=== PATIENT | female | born 1975 | race Two or more races ===

== ENCOUNTER 2020-11-15 10:09 | Outpatient (REF) | payer OTHER, SELFPAY ==
[2020-11-15 11:36] LABS: Basophils Percent Auto 0.7 % (0-2); Eosinophils Absolute Auto 0.1 X10*3/uL (0.0-0.4); Eosinophils Percent Auto 3.1 % (0-4); Hematocrit 39.4 % (37-47); Hemoglobin 13.3 g/dl (12.0-16.0); Lymphocytes Absolute Auto 0.4 X10*3/uL (1.2-4.9); Lymphocytes Percent Auto 15.1 % (20-40); MANUAL DIFF FLAG SCAN; Mean Corpuscular HGB Conc 33.8 g/dl (31.0-35.0); Mean Corpuscular Hemoglobin 31.4 pg (27.0-33.0); Mean Corpuscular Volume 93.1 fL (80-98); Mean Platelet Volume 10.2 fL (9.4-12.3); Monocytes Absolute Auto 0.3 X10*3/uL (0.1-1.2); Monocytes Percent Auto 10.3 % (2-11); Neutrophils Absolute Auto 2.1 X10*3/uL (2.0-8.3); Neutrophils Percent Auto 70.8 % (45-73); Platelet Count 193 X10*3/uL (160-400); Red Blood Count 4.23 X10*6/uL (4.20-5.50); Red Cell Distribution Width 12.5 % (11.0-16.0); SCAN SMEAR FLAG 1; White Blood Count 2.9 X10*3/uL (4.8-10.8)
[2020-11-15 11:55] LABS: Alanine Aminotransferase 16 U/L (0-31); Albumin Level 4.2 g/dL (3.5-5.0); Alkaline Phosphatase 71 U/L (39-117); Anion Gap 10 (12-20); Aspartate Amino Transferase 16 U/L (5-31); Bilirubin Total 1.9 mg/dL (0.0-1.0); Blood Urea Nitrogen 12 mg/dL (9-16); Calcium 9.6 mg/dL (8.4-10.2); Carbon Dioxide 27 mmol/L (22-29); Chloride 104 mmol/L (96-108); Estimated Glomerular Filt Rate > 60; Glucose Fasting 94 mg/dL (60-99); Potassium 4.2 mmol/L (3.3-5.1); Sodium 137 mmol/L (135-145); Total Protein 6.6 g/dL (6.5-8.0)
[2020-11-15 11:59] LABS: Thyroid Stimulating Hormone 1.14 uIU/mL (0.32-4.0)
[2020-11-15 12:14] LABS: Folate 9.4 ng/mL (> or = 4.0); Vitamin B12 443 pg/mL (200-900)
[2020-11-15 13:36] LABS: SLIDE REVIEW VERIFIED
[2020-11-22 12:07] LABS: Vitamin D 25-OH, D2 <4 ng/mL; Vitamin D 25-OH, D3 22 ng/mL; Vitamin D 25-OH, Total 22 ng/mL (30-100)
== END 2020-11-15 10:10 | disposition home or self-care (01) ==
LOC: HO.LAB 10:09
PROVIDERS: PCP Internal Medicine; Visit Provider Internal Medicine
DX: R53.83 Other fatigue (principal); E55.9 Vitamin D deficiency, unspecified; D64.9 Anemia, unspecified
CPT/HCPCS: 36415; 80053; 82306; 82607; 82746; 84443; 85025

== ENCOUNTER 2020-12-01 09:22 | Outpatient (REF) | payer OTHER, SELFPAY | END 2020-12-01 09:23 | disposition home or self-care (01) | LOC: HO.LAB 09:22 | PROVIDERS: PCP Internal Medicine; Visit Provider Internal Medicine | DX: Z20.822 Contact with and (suspected) exposure to COVID-19 (principal) | CPT/HCPCS: C9803; U0003; U0005 ==

== ENCOUNTER 2020-12-09 13:11 | Outpatient (REF) | payer OTHER, SELFPAY ==
--- NOTE | ~2020-12-09 | MM_ITS ---
EXAMINATION: MM DIAGNOSTIC DIGITAL BREAST TOMOSYNTHESIS, BILATERAL US DIAGNOSTIC ULTRASOUND BREAST, RIGHT CLINICAL INFORMATION: 44-year-old with new palpable fullness posterior 9:00 right breast noted by patient. Tenderness also noted at site of palpable concern. No family history breast cancer. Due for yearly. The lifetime risk of breast cancer based on the Tyrer-Cuzick Model is 9%. COMPARISON: Mammography: 06/05/2018, 05/17/2017, 07/08/2015; targeted right breast ultrasound 05/17/2017, 07/08/2015. TECHNIQUE: Digital breast tomosynthesis is performed in both the craniocaudal and mediolateral oblique views along with computer-aided detection (CAD). Synthesized 2D images are generated from the tomosynthesis. Ultrasound right breast is targeted to the area of concern posterior outer right breast. Grayscale imaging and color Doppler are performed without and with harmonics. FINDINGS: The breasts are heterogeneously dense, which may obscure small masses (ACR BI-RADS breast composition Category c). There is inhomogeneous parenchymal pattern similar to multiple prior exams. The left breast shows no interval mass or architectural abnormality. Neither breast shows abnormal calcifications. The axilla and skin contours are unremarkable. The right breast has new oval circumscribed mass posterior outer quadrant at site of palpable concern measuring approximately 3 cm in size. Ultrasound right breast targeted to the area of clinical concern demonstrates a simple cyst 9:00 position 8 cm from nipple measuring 3.3 x 2.3 x 1.7 cm. There is no solid mass or architectural abnormality. No skin thickening or edema tracking in soft tissue planes. Results are discussed with the patient at time of visit. Patient questions including management options were discussed. MM/MM tomosynthesis diagnostic BI IMPRESSION: 1. No mammographic evidence of malignancy. 2. New simple cyst right breast at site of clinical concern posterior 9:00 position measuring 3.3. x 2.3. x 1.7 cm. No hyperemia. ASSESSMENT: BI-RADS 2: Benign RECOMMENDATION: 1. Patient may be managed based on the clinical impression. If the new simple cyst posterior outer right breast is felt to be responsible for significant breast pain, it would be amenable to ultrasound-guided aspiration. 2. Otherwise, routine annual screening mammography. This patient's information was entered into a reminder system with a target due date for their next mammogram.
== END 2020-12-09 13:12 | disposition home or self-care (01) ==
LOC: HO.MAMMO 13:11
PROVIDERS: PCP Internal Medicine; Visit Provider Internal Medicine
DX: N63.15 Unspecified lump in the right breast, overlapping quadrants (principal)
CPT/HCPCS: 76642; 77062; 77066

== ENCOUNTER → 2021-01-24 15:10 | Outpatient (BNVA) | payer OTHER, SELFPAY | PROVIDERS: PCP Internal Medicine; Visit Provider Surgery ==

== ENCOUNTER 2021-05-02 11:08 | Outpatient (REF) | payer OTHER, SELFPAY | END 2021-05-02 11:09 | disposition home or self-care (01) | LOC: HO.LAB 11:08 | PROVIDERS: Visit Provider Nurse Practitioner Family | DX: R35.0 Frequency of micturition (principal) | CPT/HCPCS: 87086 ==

== ENCOUNTER 2021-05-02 11:58 | Outpatient (REF) | payer OTHER, SELFPAY | END 2021-05-02 11:59 | disposition home or self-care (01) | LOC: HO.10HDLNP 11:58 | PROVIDERS: Visit Provider Nurse Practitioner Family | DX: R35.0 Frequency of micturition (principal) | CPT/HCPCS: 87086 ==

== ENCOUNTER 2021-09-11 16:46 | Emergency (ER) | payer OTHER, SELFPAY ==
--- NOTE | ~2021-09-11 | US_ITS ---
EXAMINATION: US PELVIS CLINICAL INFORMATION: Pain. COMPARISON: CT abdomen/pelvis done earlier today at 8:49 PM. TECHNIQUE: Ultrasound of the pelvis is performed using both transabdominal and transvaginal transducers along with Doppler. Transvaginal imaging is performed due to inadequate visualization transabdominally. FINDINGS: The uterus is retroverted and retroflexed measuring 8.1 x 4.8 x 5.5 cm. No fibroids are identified. The endometrium measures up to 1.3 cm in maximum thickness without focal abnormalities. The ovaries are normal in morphology with preserved flow on color and spectral Doppler. The right ovary measures 2.1 x 1.3 x 1.3 cm (20 mL) and the left ovary measures 3.5 x 2.0 x 1.9 cm (volume of 7 mL). In the left ovary, there is a 1.7 cm thick-walled cyst and a 1.7 cm thin wall cyst with some internal echogenic avascular content. No free fluid. US/US pelvic and transvaginal IMPRESSION: Asymmetric enlargement of the left ovary secondary to the presence of two ovarian cysts, one with thickened de la vega that likely represents a corpus luteal cyst and another one with thinner de la vega but internal debris, possibly representing a hemorrhagic cyst or dominant follicle. At the moment of this examination, flow is preserved to this ovary. A follow-up ultrasound in 6-12 weeks could be obtained to ensure adequate resolution of these cysts.
--- NOTE | ~2021-09-11 | CT_ITS ---
EXAMINATION: CT ABDOMEN AND PELVIS WITHOUT CONTRAST CLINICAL INFORMATION: Back pain/groin pain. kidney stones? arthritis? . COMPARISON: 09/28/2019. TECHNIQUE: Multidetector volumetric imaging was performed from the superior aspect of the liver through the pubic symphysis without contrast per renal stone protocol. Sagittal and coronal reformatted images were obtained on the technologist workstation. This CT examination was performed using dose optimization techniques as appropriate, variously including the following: *Automated exposure control *Adjustment of mA and/or kV according to patient size (this includes techniques or standardized protocols for targeted exams where dose is matched to indication/reason for exam; i.e. extremities or head) *Use of iterative reconstruction technique DLP: 629 mGy-cm. FINDINGS: LUNG BASES: The visualized lung bases are unremarkable. LIVER, GALLBLADDER, BILIARY TREE: The non-contrast liver is normal in size, shape, and attenuation. There are a few densely calcified hepatic granulomas incidentally noted but no suspicious focal hepatic lesion or biliary ductal dilatation is present. The gallbladder is unremarkable with no evidence of radiopaque gallstones, gallbladder wall thickening, or obvious pericholecystic inflammatory changes. PANCREAS: Unremarkable. SPLEEN: Unremarkable. ADRENAL GLANDS: Unremarkable. KIDNEYS AND URETERS: The kidneys are normal in size, shape, and attenuation. No hydronephrosis, hydroureter, or calculi seen. No perinephric stranding. BLADDER: Unremarkable. GASTROINTESTINAL TRACT: The small and large bowel are unremarkable. The appendix is nonvisualized and may be surgically absent. No focal inflammatory changes seen in the right lower quadrant.. ABDOMINAL WALL: No significant hernia is appreciated. LYMPHOVASCULAR STRUCTURES: No lymphadenopathy. The aorta is unremarkable.. PELVIC VISCERA: Retroverted uterus with physiologic changes in the adnexa. OSSEUS STRUCTURES: No acute bony abnormalities. CT/CT abdomen pelvis wo con IMPRESSION: No acute intra-abdominal process seen..
--- NOTE | ~2021-09-11 | US_ITS ---
EXAMINATION: US PELVIS CLINICAL INFORMATION: Pain. COMPARISON: CT abdomen/pelvis done earlier today at 8:49 PM. TECHNIQUE: Ultrasound of the pelvis is performed using both transabdominal and transvaginal transducers along with Doppler. Transvaginal imaging is performed due to inadequate visualization transabdominally. FINDINGS: The uterus is retroverted and retroflexed measuring 8.1 x 4.8 x 5.5 cm. No fibroids are identified. The endometrium measures up to 1.3 cm in maximum thickness without focal abnormalities. The ovaries are normal in morphology with preserved flow on color and spectral Doppler. The right ovary measures 2.1 x 1.3 x 1.3 cm (20 mL) and the left ovary measures 3.5 x 2.0 x 1.9 cm (volume of 7 mL). In the left ovary, there is a 1.7 cm thick-walled cyst and a 1.7 cm thin wall cyst with some internal echogenic avascular content. No free fluid. US/US pelvic ovarian doppler IMPRESSION: Asymmetric enlargement of the left ovary secondary to the presence of two ovarian cysts, one with thickened de la vega that likely represents a corpus luteal cyst and another one with thinner de la vega but internal debris, possibly representing a hemorrhagic cyst or dominant follicle. At the moment of this examination, flow is preserved to this ovary. A follow-up ultrasound in 6-12 weeks could be obtained to ensure adequate resolution of these cysts.
[2021-09-11 16:55] VITALS: BP 119/87; PULSE 89; RESP 18; TEMP 36.8; O2SAT 97; BMI 26.6
[2021-09-11 17:29] LABS: Appearance Urine CLEAR; Color Urine YELLOW; Glucose Urine UA NEG (NEG); Leukocyte Esterase Urine NEG (NEG); Nitrite Urine NEG (NEG); Specific Gravity - Urine 1.015 (1.005-1.025); UACC Culture Trigger NO; Urine Blood TRACE (NEG); Urine Ketones NEG (NEG); Urine Protein NEG (NEG-TRACE)
[2021-09-11 17:44] LABS: RBC Urine 0-2 /HPF (0); WBC Urine 0-2 /HPF (0-4)
[2021-09-11 17:45] LABS: Squamous Epithelial Cell Urine TRACE /LPF
[2021-09-11 19:28] LABS: MANUAL DIFF FLAG NO
[2021-09-11 19:31] LABS: Basophils Percent Auto 0.7 % (0-2); Eosinophils Absolute Auto 0.2 X10*3/uL (0.0-0.4); Eosinophils Percent Auto 3.5 % (0-4); Hematocrit 37.8 % (37.0-47.0); Imm Gran Abs Auto 0.01 X10*3/uL (0.00-0.03); Imm Gran Pct Auto 0.2 % (0.0-0.4); Lymphocytes Absolute Auto 2.2 X10*3/uL (1.2-4.9); Lymphocytes Percent Auto 51.5 % (20-40); Mean Corpuscular HGB Conc 34.4 g/dl (31.0-35.0); Mean Corpuscular Hemoglobin 31.4 pg (27.0-33.0); Mean Corpuscular Volume 91.3 fL (80.0-98.0); Mean Platelet Volume 9.5 fL (9.4-12.3); Monocytes Absolute Auto 0.3 X10*3/uL (0.1-1.2); Monocytes Percent Auto 6.4 % (2-11); Neutrophils Absolute Auto 1.6 x10*3/uL (2.0-8.3); Neutrophils Percent Auto 37.7 % (45-73); Platelet Count 241 X10*3/uL (160-400); Red Blood Count 4.14 X10*6/uL (4.20-5.50); Red Cell Distribution Width 12.5 % (11.0-16.0); White Blood Count 4.2 X10*3/uL (4.8-10.8)
[2021-09-11 19:44] LABS: Anion Gap 9 (12-20); Blood Urea Nitrogen 11 mg/dL (9-16); Calcium 9.8 mg/dL (8.4-10.2); Carbon Dioxide 26 mmol/L (22-29); Chloride 106 mmol/L (96-108); Creatinine Clr Calc Pharmacy 102.3; Estimated Glomerular Filt Rate > 60; Glucose Random 95 mg/dL (60-115); Potassium 4.2 mmol/L (3.3-5.1); Sodium 137 mmol/L (135-145)
[2021-09-11 20:02] LABS: UPreg QC Valid YES; Urine Pregnancy NEGATIVE (NEGATIVE)
--- NOTE | 2021-09-11 20:25 | ED.GENADULT ---
HPI - General Adult General Chief complaint: Back Pain/Injury Stated complaint: severe back pain Time Seen by Provider: 09/11/21 19:48 Source: patient Mode of arrival: ambulatory Limitations: no limitations History of Present Illness HPI narrative: 45-year-old female with history of kidney stones presents to the ED left back pain radiating down left groin area. Patient denies any falling any recent trauma. Patient denies nausea or emesis. Patient denies any vaginal bleeding, unusual vaginal discharge, or vaginal lesions. Patient denies any urinary/bowel incontience Related Data Previous Rx's Medication Instructions Recorded loratadine 10 mg tablet (Allergy 10 mg PO DAILY 90 Days #90 tab 11/01/20 Relief (loratadine)) sumatriptan succinate 25 mg tablet 25 mg PO Q2-4H PRN 30 Days #9 tab 11/01/20 fluticasone propionate 50 1 spray INTRANASAL DAILY 30 Days 04/16/21 mcg/actuation nasal #16 g spray,suspension fluconazole 150 mg tablet 150 mg PO Q3D #2 tab 05/02/21 (Diflucan) dexlansoprazole 30 mg 30 mg PO BID 30 Days #60 cap 05/25/21 capsule,biphase delayed release (Dexilant) simethicone 180 mg capsule (Gas 180 mg PO BID PRN 90 Days #180 cap 06/08/21 Relief (simethicone)) naproxen 500 mg tablet 500 mg PO BID PRN #20 tab 09/11/21 oxycodone-acetaminophen 5 mg-325 1 tab PO TID PRN 3 Days #9 tab 09/11/21 mg tablet (Percocet) Allergies Allergy/AdvReac Type Severity Reaction Status Date / Time latex [LATEX] Allergy Unknown RASH Verified 09/11/21 16:55 amoxicillin [AMOXICILLIN] AdvReac Unknown VOMITTING Verified 09/11/21 16:55 AND NAUSEA, abdominal pain, N/V and diarrhea Review of Systems Review of Systems: back pain/groin pain. Yes all other systems are reviewed and are negative [facility] Past Medical History Medical History (Updated 09/11/21 @ 23:00 by AMMY Mclaughlin) Allergic rhinitis Breast mass Breast mass Chronic leukopenia Fatigue Lumbar pain Migraines Surgical History H/O LEEP History of appendectomy History of shoulder surgery History of tubal ligation Family History Family History Father Diabetes Hypertension Mother Osteoporosis Glaucoma Maternal Uncle Stomach cancer Colon cancer H/O: lung cancer Maternal Grandmother Gallbladder cancer Maternal Aunt Liver cancer Paternal Grandmother Alzheimers disease Maternal Grandfather Glaucoma Heart attack Social History Social History Housing: House Alcohol intake: current Alcohol intake frequency: holidays/special occasions only Alcohol type: wine Patient Tobacco Use Status: Former Tobacco user e-Cigarette/Vaping Use: Never Used Advance Directives: No Advance Directives Information Provided: Yes Patient : No service: No Physical Exam Vital Signs: Vital Signs: Last Vital Signs Temp 98.2 F 09/11/21 16:55 Pulse 62 09/11/21 21:59 Resp 16 09/11/21 21:59 BP 119/58 L 09/11/21 21:59 Pulse Ox 100 09/11/21 21:59 BMI result Body Mass Index 26.6 Const: General: cooperative, healthy appearing, comfortable, no acute distress, well developed, alert, awake and Physically active Orientation/consciousness: patient oriented x3 HENMT: Head: Yes normal to inspection, Yes No palpable skull fracture present, Yes normocephalic, Yes atraumatic and No abrasion Eyes: General: appearance normal, both eyes and all related structures Neck: Neck: Yes normal visual inspection, Yes full ROM, Yes no lymphadenopathy, Yes no meningeal signs, Yes trachea midline, Yes supple, No anterior neck swelling and No tender Chest: Chest palpation & inspection: normal inspection of the chest and normal palpation of entire chest wall Resp: Effort & Inspection: normal respiratory effort and able to speak in complete sentences Auscultation: clear to auscultation bilaterally Cardio: Jugular venous distension: no JVD Heart sounds: S1 normal heart sound present and S2 normal heart sound present GI: Inspection: Yes normal to inspection and No abdominal wall ecchymosis Palpation (GI): Soft to palpation, not firm, Tenderness to palpation present (GI) suprapubicly (left), no guarding and not rigid : General: No CVA tenderness and Yes no CVA tenderness Back/Spine/Pelvis: Back: no CVA tenderness, No CVA tenderness and No back tenderness Skin: General skin exam: no rashes or lesions noted and elasticity normal Neuro: General: patient oriented x3, gait normal, no meningeal signs and CN's II-XI intact bilaterally Cranial nerves: Yes CN's II-XII intact bilaterally Extrem: General: Yes normal to inspection and Yes full ROM Psych: Appearance: grossly normal, well kempt and not disheveled Course Course Course Narrative: Labs urine negative. Send patient for dry CT look for kidney stones of lumbar radiculopathy. Will US check for ovarian cysts. Reevaluation(s) Reevaluation #1: PATIENT'S CT SCAN CAME BACK NORMAL. PATIENT LABS NORMAL. KIDNEY FUNCTION NORMAL. URINE NEGATIVE FOR UTI. NEGATIVE FOR . PELVIC ULTRASOUND SHOWS 2 CYSTS ON OVARIES BUT NEGATIVE FOR OVARIAN TORSION. POSITIVE FOR CORPUS LUTEAL CYSTS AND HEMORRHAGIC CYST which is contributing to left pelvic pain. patient informed to follow up with OBGYN. Time: 22:57 Medical Decision Making MDM Narrative Medical decision making narrative: CORPORIS OVARIAN CYST. HEMORRHAGIC CYST Lab Data Result diagrams: 09/11/21 19:23 09/11/21 19:23 Labs: Lab Results 09/11/21 09/11/21 09/11/21 Range/Units 17:13 17:13 19:23 WBC 4.2 L (4.8-10.8) X10*3/uL RBC 4.14 L (4.20-5.50) X10*6/uL Hgb 13.0 (12.0-16.0) g/dl Hct 37.8 (37.0-47.0) % MCV 91.3 (80.0-98.0) fL MCH 31.4 (27.0-33.0) pg MCHC 34.4 (31.0-35.0) g/dl RDW 12.5 (11.0-16.0) % Plt Count 241 (160-400) X10*3/uL MPV 9.5 (9.4-12.3) fL Immature Gran % (Auto) 0.2 (0.0-0.4) % Neut % (Auto) 37.7 L (45-73) % Lymph % (Auto) 51.5 H (20-40) % Roosevelt % (Auto) 6.4 (2-11) % Eos % (Auto) 3.5 (0-4) % Baso % (Auto) 0.7 (0-2) % Lymph # (Auto) 2.2 (1.2-4.9) X10*3/uL Roosevelt # (Auto) 0.3 (0.1-1.2) X10*3/uL Eos # (Auto) 0.2 (0.0-0.4) X10*3/uL Baso # (Auto) 0.0 (0.0-0.2) X10*3/uL Abs Immat Gran (auto) 0.01 (0.00-0.03) X10*3/uL Absolute Neuts (auto) 1.6 L (2.0-8.3) x10*3/uL Absolute Nucleated RBC 0.000 (0.0-0.012) X10*3/uL Nucleated RBC % (auto) 0.0 (0.0-0.2) /100WBC Sodium (135-145) mmol/L Potassium (3.3-5.1) mmol/L Chloride (96-108) mmol/L Carbon Dioxide (22-29) mmol/L Anion Gap (12-20) BUN (9-16) mg/dL Creatinine (0.5-1.4) mg/dL Estim Creat Clear Calc Estimated GFR Random Glucose (60-115) mg/dL Calcium (8.4-10.2) mg/dL Urine Color YELLOW Urine Appearance CLEAR Urine pH 6.0 (5.0-8.0) Ur Specific Stevenson 1.015 (1.005-1.025) Urine Protein NEG (NEG-TRACE) MG/DL Urine Glucose (UA) NEG (NEG) MG/DL Urine Ketones NEG (NEG) MG/DL Urine Blood TRACE (NEG) Urine Nitrite NEG (NEG) Ur Leukocyte Esterase NEG (NEG) Urine RBC 0-2 (0) /HPF Urine WBC 0-2 (0-4) /HPF Ur Squamous Epith Cells TRACE /LPF Urine Bacteria NONE /LPF Urine Test NEGATIVE (NEGATIVE) 09/11/21 Range/Units 19:23 WBC (4.8-10.8) X10*3/uL RBC (4.20-5.50) X10*6/uL Hgb (12.0-16.0) g/dl Hct (37.0-47.0) % MCV (80.0-98.0) fL MCH (27.0-33.0) pg MCHC (31.0-35.0) g/dl RDW (11.0-16.0) % Plt Count (160-400) X10*3/uL MPV (9.4-12.3) fL Immature Gran % (Auto) (0.0-0.4) % Neut % (Auto) (45-73) % Lymph % (Auto) (20-40) % Roosevelt % (Auto) (2-11) % Eos % (Auto) (0-4) % Baso % (Auto) (0-2) % Lymph # (Auto) (1.2-4.9) X10*3/uL Roosevelt # (Auto) (0.1-1.2) X10*3/uL Eos # (Auto) (0.0-0.4) X10*3/uL Baso # (Auto) (0.0-0.2) X10*3/uL Abs Immat Gran (auto) (0.00-0.03) X10*3/uL Absolute Neuts (auto) (2.0-8.3) x10*3/uL Absolute Nucleated RBC (0.0-0.012) X10*3/uL Nucleated RBC % (auto) (0.0-0.2) /100WBC Sodium 137 (135-145) mmol/L Potassium 4.2 (3.3-5.1) mmol/L Chloride 106 (96-108) mmol/L Carbon Dioxide 26 (22-29) mmol/L Anion Gap 9 L (12-20) BUN 11 (9-16) mg/dL Creatinine 0.81 (0.5-1.4) mg/dL Estim Creat Clear Calc 102.3 Estimated GFR > 60 Random Glucose 95 (60-115) mg/dL Calcium 9.8 (8.4-10.2) mg/dL Urine Color Urine Appearance Urine pH (5.0-8.0) Ur Specific Stevenson (1.005-1.025) Urine Protein (NEG-TRACE) MG/DL Urine Glucose (UA) (NEG) MG/DL Urine Ketones (NEG) MG/DL Urine Blood (NEG) Urine Nitrite (NEG) Ur Leukocyte Esterase (NEG) Urine RBC (0) /HPF Urine WBC (0-4) /HPF Ur Squamous Epith Cells /LPF Urine Bacteria /LPF Urine Test (NEGATIVE) Discharge Plan Discharge Clinical Impression: Hemorrhagic cyst of ovary, Corpus luteum cyst of left ovary Patient Disposition: Home, Self-Care Instructions: Ovarian Cyst (ED) Additional Instructions: Gould ecograf?a muestra que tiene un quiste del cuerpo l?haily y un quiste hemorr?gico en los quistes del ovario amos. Debe hacer un seguimiento con un m?dico obstetra y ginec?logo. Se le jim? de merle con analg?sicos. Regrese al servicio de urgencias de inmediato si empeora el dolor p?lvico, el sangrado vaginal, el dolor de espalda, las n?useas, los v?mitos, el flujo vaginal o cualquier otro s?ntoma preocupante. Prescriptions: New naproxen 500 mg tablet 500 mg PO BID PRN (Reason: pain) Qty: 20 0RF oxycodone-acetaminophen [Percocet] 5-325 mg tablet 1 tab PO TID PRN (Reason: pain) 3 Days Qty: 9 0RF Rx Instructions: side effect is drowsiness. Do not take at work or while driving. No Action fluticasone propionate 50 mcg/actuation spray,suspension 1 spray intranasal DAILY 30 Days Qty: 16 3RF Rx Instructions: administer into each nostril Dexilant 30 mg capsule,biphase delayed releas 30 mg PO BID 30 Days Qty: 60 4RF Rx Instructions: Take one capsule orally twice a day simethicone [Gas Relief (simethicone)] 180 mg capsule 180 mg PO BID PRN (Reason: abdominal distention) 90 Days Qty: 180 1RF loratadine [Allergy Relief (loratadine)] 10 mg tablet 10 mg PO DAILY 90 Days Qty: 90 3RF sumatriptan succinate 25 mg tablet 25 mg PO Q2-4H PRN (Reason: migraine headache) 30 Days Qty: 9 6RF Rx Instructions: do not exceed 8 doses per 24 hrs fluconazole [Diflucan] 150 mg tablet 150 mg PO Q3D Qty: 2 0RF Referrals: Stewart Crenshaw MD [Physician] - 2 days (Cough worse luteal and hemorrhagic cyst on left ovary) Stand Alone Forms: Work/School Release Print Language: Nigerien
[2021-09-11] MEDS: Ketorolac Tromethamine 60 MG/2 ML VIAL IM (20:31)
[2021-09-11] MEDS: Cyclobenzaprine HCl 10 MG TABLET PO (20:32)
[2021-09-11 21:59] VITALS: BP 119/58; PULSE 62; RESP 16; O2SAT 100
== END 2021-09-11 23:30 | disposition home or self-care (01) ==
PROVIDERS: Physician Assistant; Emergency Provider Internal Medicine; PCP Internal Medicine
DX: N83.02 Follicular cyst of left ovary (principal); N83.12 Corpus luteum cyst of left ovary
CPT/HCPCS: 36415; 74176; 76830; 76856; 80048; 81001; 81025; 85025; 93975; 96372; 99284; J1885

== ENCOUNTER → 2021-10-16 13:50 | Outpatient (BNVA) | payer SELFPAY | PROVIDERS: PCP Internal Medicine; Visit Provider Internal Medicine | DX: Z02.79 Encounter for issue of other medical certificate (principal) ==

== ENCOUNTER 2022-01-05 15:13 | Outpatient (REF) | payer OTHER, SELFPAY ==
--- NOTE | ~2022-01-05 | XR_ITS ---
EXAMINATION: XR FOOT, LEFT CLINICAL INFORMATION: Pain COMPARISON: None TECHNIQUE: AP, lateral, and oblique views of the left foot. FINDINGS: The bones and soft tissues are normal. No fracture. Alignment is anatomic. Joint spaces are maintained. XR/XR foot LT 2V IMPRESSION: Unremarkable left foot.
== END 2022-01-05 15:14 | disposition home or self-care (01) ==
LOC: HO.XRAY 15:13
PROVIDERS: PCP Internal Medicine; Visit Provider Internal Medicine
DX: M79.672 Pain in left foot (principal)
CPT/HCPCS: 73620

== ENCOUNTER 2022-01-17 13:56 | Outpatient (REF) | payer OTHER, SELFPAY ==
--- NOTE | ~2022-01-17 | MM_ITS ---
EXAMINATION: MM SCREENING DIGITAL BREAST TOMOSYNTHESIS, BILATERAL CLINICAL INFORMATION: Screening. Asymptomatic. The lifetime risk of breast cancer based on the Tyrer-Cuzick Model is 9%. COMPARISON: Mammography: 12/09/2020, 06/05/2018, 05/17/2017, ultrasound right 12/09/2020. TECHNIQUE: Digital breast tomosynthesis is performed in both the craniocaudal and mediolateral oblique views along with computer-aided detection (CAD). Synthesized 2D images are generated from the tomosynthesis. FINDINGS: The breasts are heterogeneously dense, which may obscure small masses (ACR BI-RADS breast composition Category c). There are no significant masses, abnormal calcifications, or other abnormalities. No developing density. The dominant simple cyst posterior 9:00 right breast is moderately decreased in size. The axilla and skin contours are unremarkable. MM/MM tomosynthesis screening BI IMPRESSION: -No mammographic evidence of malignancy. -Simple cyst posterior 9:00 right breast moderately decreased in size since prior exam. ASSESSMENT: BI-RADS 2: Benign RECOMMENDATION: Routine annual mammography screening. This patient's information was entered into a reminder system with a target due date for their next mammogram.
== END 2022-01-17 13:57 | disposition home or self-care (01) ==
LOC: HO.MAMMO 13:56
PROVIDERS: Visit Provider Internal Medicine
DX: Z12.31 Encounter for screening mammogram for malignant neoplasm of breast (principal)
CPT/HCPCS: 77063; 77067

== ENCOUNTER 2022-03-07 07:59 | Emergency (ER) | payer OTHER, SELFPAY ==
--- NOTE | ~2022-03-07 | US_ITS ---
EXAMINATION: US ABDOMEN LIMITED CLINICAL INFORMATION: Pain of right upper quadrant. COMPARISON: CT imaging of abdomen from 08/03/2016 and 09/11/2021 TECHNIQUE: Real-time imaging of the right upper quadrant abdominal viscera. FINDINGS: PANCREAS: Normal. LIVER: Liver has normal size and contour. There are two old foci of calcification in the liver, compatible with granulomatous. No intrahepatic bile duct dilatation. No evidence of liver mass, steatosis or cirrhosis. GALLBLADDER: Normal. The gallbladder is physiologically distended without evidence of stones, sludge, polyps, wall thickening or pericholecystic fluid. COMMON BILE DUCT: Normal in caliber measuring 0.5 cm in maximum diameter. RIGHT KIDNEY: Normal. No hydronephrosis. No renal calculi or focal parenchymal lesions. The kidney measures 10.8 cm in maximum dimension. FREE FLUID: None. US/US abdomen limited IMPRESSION: No acute findings in the right upper quadrant of the abdomen. No evidence of cholelithiasis, cholecystitis or biliary tract obstruction.
[2022-03-07 08:43] VITALS: BMI 23.3
[2022-03-07 08:45] VITALS: BP 118/67; PULSE 67; RESP 16; TEMP 36.7; O2SAT 99
[2022-03-07] MEDS: Ondansetron ODT 4 MG TAB.RAPDIS TRANSLINGU (09:24)
[2022-03-07] MEDS: oxyCODONE HCl Immed Release 5 MG TABLET PO ×2 (09:24→15:04)
--- NOTE | 2022-03-07 09:31 | ED.ABDPAIN ---
HPI - Abdominal Pain General Chief Complaint: Abdominal Pain Stated Complaint: abd pain going into R side Time Seen by Provider: 03/07/22 09:07 Source: patient Mode of arrival: ambulatory Limitations: no limitations History of Present Illness HPI narrative: 46-year-old female with a history of GERD, irritable bowel syndrome, H pylori, appendicitis status post appendectomy and [place] who presents to the ER for evaluation of postprandial right upper quadrant pain on and off for the last few weeks. She was seen at an urgent care last week, had an ultrasound done that did not show any significant findings. She modified her diet, cut out a lot of fatty and greasy foods with improvement in her pain. She reports today she woke up with worsening pain and now that pain radiates from her right upper quadrant to her back. This is new for her. She is nauseous but not vomiting. She has no fevers or chills. She denies any alcohol use. No history of pancreatitis. MD elicited complaint: abdominal pain Pertinent past history: none Onset (ago): week(s) Pain Consistency: intermittent Location: RUQ Severity: moderate Quality: stabbing Radiation: back Migration to: no migration Exacerbating factors: eating Relieving factors: other (diet modification) Context: history of similar episodes Associated symptoms: nausea Related Data Previous Rx's Medication Instructions Recorded loratadine 10 mg tablet (Allergy 10 mg PO DAILY 90 days #90 tabs 12/14/21 Relief (loratadine)) sumatriptan succinate 25 mg tablet 25 mg PO Q2-4H PRN migraine 12/14/21 headache 30 days #9 tabs dexlansoprazole 30 mg 30 mg PO BID 30 days #60 caps 01/04/22 capsule,biphase delayed release (Dexilant) fluconazole 150 mg tablet 150 mg PO Q3D 2 doses #2 tabs 01/04/22 fluticasone propionate 50 1 spray intranasal DAILY 30 days 01/04/22 mcg/actuation nasal #16 grams spray,suspension naproxen 500 mg tablet 500 mg PO BID PRN pain #20 tabs 01/04/22 ondansetron 4 mg disintegrating 4 mg PO Q8H PRN nausea and 03/07/22 tablet vomiting #7 tabs oxycodone 5 mg tablet 5 mg PO Q8H PRN severe pain (scale 03/07/22 score 7-10) #6 tabs Allergies Allergy/AdvReac Type Severity Reaction Status Date / Time latex [LATEX] Allergy Unknown RASH Verified 01/04/22 17:28 amoxicillin [AMOXICILLIN] AdvReac Unknown VOMITTING Verified 01/04/22 17:28 AND NAUSEA, abdominal pain, N/V and diarrhea Review of Systems Review of Systems Constitutional: No Fever, No Chills ENT/Mouth: No sore throat, No Rhinorrhea, No Swallowing Difficulty Cardiovascular: No Chest Pain, No SOB, No Orthopnea, No Edema Respiratory: No Cough, No Sputum, No Wheezing, No dyspnea Gastrointestinal: + Nausea, No Vomiting, No Diarrhea, + abdominal Pain, No Hematochezia, No Melena Genitourinary: No Dysuria, No Urinary Frequency, No Hematuria Musculoskeletal: No joint pain, No Myalgias Skin: No Skin Lesions, No rash Neuro: No Weakness, No Numbness, No Dizziness, No Headache Psych: No Anxiety/Panic, No Depression Heme/Lymph: No Bruising, No Lymphadenopathy Endocrine: No Polyuria, No Polydipsia PMFSH Past Medical History Medical History (Updated 03/07/22 @ 13:05 by AMMY Bernabe) Allergic rhinitis Breast mass Breast mass Chronic leukopenia Fatigue Left foot pain Lumbar pain Migraines Surgical History H/O LEEP History of appendectomy History of shoulder surgery History of tubal ligation Family History Family History (Updated 01/04/22 @ 17:12 by NIKOLE Ponce) Father Diabetes Hypertension Mother Osteoporosis Glaucoma Maternal Uncle Stomach cancer Colon cancer H/O: lung cancer Maternal Grandmother Gallbladder cancer Maternal Aunt Liver cancer Paternal Grandmother Alzheimers disease Maternal Grandfather Glaucoma Heart attack Social History Social History Housing: House Alcohol intake: current Alcohol intake frequency: holidays/special occasions only Alcohol type: wine Patient Tobacco Use Status: Former Tobacco user e-Cigarette/Vaping Use: Never Used Second Hand Smoke Exposure: No service: No Current occupational status: employed Current occupational exposures/hazards: No Cognitive needs: No Hearing needs: No Vision needs: No Physical Exam ED Vital Signs: Vital Signs - 24 hr 03/07/22 08:45 Temperature 98.0 F Pulse Rate 67 Respiratory Rate 16 Blood Pressure 118/67 Pulse Oximetry 99 Oxygen Delivery Method Room Air BMI result Body Mass Index 23.3 Appearance: Alert. Oriented X3. No acute distress. Eyes: Pupils equal, round and reactive to light. ENT: Pharynx normal. Neck: Normal inspection. Neck supple. CVS: Normal heart rate and rhythm. Pulses normal. Respiratory: No respiratory distress. Breath sounds normal. Abdomen: Soft +RUQ tenderness to deep palpation, no rebound or guarding. normal +BS x4 Skin: Skin warm and dry. Normal skin color. Normal skin turgor. No rashes. Extremities: No lower extremity edema. Neuro: Oriented X 3. No motor deficit. No sensory deficit. Course Course Course Narrative: 46 yo female presenting to the ER with intermittent post-prandial RUQ pain that has been going on for the last few weeks. Nausea but no vomiting. No fever or chills. +tenderness on exam, will check labs and US. Reevaluation(s) Reevaluation #1: LFTs show a total bilirubin of 1.6 and D bili of 0.6. Her baseline bilirubin is around 1.5. Alk-phos is normal, doubt any biliary obstruction. Her ultrasound is pending. Her pain is better after oxycodone and Zofran. Reevaluation #2: Patient ate papaya and drink some water with recurrence in her pain. Additional oxycodone ordered with good affect. No vomiting. Her ultrasound showed normal gallbladder, no stones, no wall thickening. Patient's pain is improved and at this time will plan to discharge for elective outpatient cholecystectomy evaluation by Dr. Uriarte in the office. Patient agrees. If she has new or worsening symptoms she will return back to the emergency department. MDM - Abdominal Pain Lab Data Result diagrams: 03/07/22 09:54 03/07/22 09:54 Labs: Lab Results 03/07/22 03/07/22 03/07/22 Range/Units 09:48 09:54 09:54 WBC 3.2 L (4.8-10.8) X10*3/uL RBC 4.23 (4.20-5.50) X10*6/uL Hgb 13.5 (12.0-16.0) g/dl Hct 38.7 (37.0-47.0) % MCV 91.5 (80.0-98.0) fL MCH 31.9 (27.0-33.0) pg MCHC 34.9 (31.0-35.0) g/dl RDW 12.5 (11.0-16.0) % Plt Count 205 (160-400) X10*3/uL MPV 9.1 L (9.4-12.3) fL Immature Gran % (Auto) 0.0 (0.0-0.4) % Neut % (Auto) 39.3 L (45-73) % Lymph % (Auto) 51.6 H (20-40) % [place] % (Auto) 6.6 (2-11) % Eos % (Auto) 1.6 (0-4) % Baso % (Auto) 0.9 (0-2) % Lymph # (Auto) 1.7 (1.2-4.9) X10*3/uL [place] # (Auto) 0.2 (0.1-1.2) X10*3/uL Eos # (Auto) 0.1 (0.0-0.4) X10*3/uL Baso # (Auto) 0.0 (0.0-0.2) X10*3/uL Abs Immat Gran (auto) 0.00 (0.00-0.03) X10*3/uL Absolute Neuts (auto) 1.3 L (2.0-8.3) x10*3/uL Absolute Nucleated RBC 0.000 (0.0-0.012) X10*3/uL Nucleated RBC % (auto) 0.0 (0.0-0.2) /100WBC Sodium 140 (135-145) mmol/L Potassium 4.2 (3.3-5.1) mmol/L Chloride 107 (96-108) mmol/L Carbon Dioxide 27 (22-29) mmol/L Anion Gap 10 L (12-20) BUN 12 (9-16) mg/dL Creatinine 0.80 (0.5-1.4) mg/dL Estim Creat Clear Calc 97.0 Estimated GFR > 60 Random Glucose 104 (60-115) mg/dL Calcium 9.6 (8.4-10.2) mg/dL Magnesium 2.1 (1.6-2.6) mg/dL Total Bilirubin 1.6 H (0.0-1.0) mg/dL Direct Bilirubin 0.6 H (0.0-0.5) mg/dL AST 16 (5-31) U/L ALT 11 (0-31) U/L Alkaline Phosphatase 55 D (39-117) U/L Total Protein 7.0 (6.5-8.0) g/dL Albumin 4.4 (3.5-5.0) g/dL Lipase 14 (8-78) U/L Urine Color YELLOW Urine Appearance CLEAR Urine pH 6.5 (5.0-8.0) Ur Specific [place] 1.010 (1.005-1.025) Urine Protein NEG (NEG-TRACE) MG/DL Urine Glucose (UA) NEG (NEG) MG/DL Urine Ketones NEG (NEG) MG/DL Urine Blood NEG (NEG) Urine Nitrite NEG (NEG) Ur Leukocyte Esterase NEG (NEG) Critical Care Time Critical Care Time Critical Care Time: No Discharge Plan Discharge Clinical Impression: Biliary colic Patient Disposition: Home, Self-Care Instructions: Biliary Colic (ED) Additional Instructions: Your lab workup today was unchanged from your baseline over a year ago. Her ultrasound showed no evidence of gallbladder stones or infection. Recommend following up with the general surgeon for evaluation of possible gallbladder removal. Name and number below. Take the prescribed medication as needed for severe pain do not drive after taking this medication can make you drowsy. Take the prescribed medication as needed for nausea. Avoid fatty and greasy foods, limit dairy and fatty food intake. If you develop new or worsening symptoms call 911 or come back to the ER for further evaluation. Prescriptions: New oxycodone 5 mg tablet 5 mg PO Q8H PRN (Reason: severe pain (scale score 7-10)) Qty: 6 0RF Rx Instructions: Partial Fill upon patient request. ondansetron 4 mg tablet,disintegrating 4 mg PO Q8H PRN (Reason: nausea and vomiting) Qty: 7 0RF No Action loratadine [Allergy Relief (loratadine)] 10 mg tablet 10 mg PO DAILY 90 Days Qty: 90 3RF sumatriptan succinate 25 mg tablet 25 mg PO Q2-4H PRN (Reason: migraine headache) 30 Days Qty: 9 6RF Rx Instructions: do not exceed 8 doses per 24 hrs fluticasone propionate 50 mcg/actuation spray,suspension 1 spray intranasal DAILY 30 Days Qty: 16 3RF Rx Instructions: administer into each nostril fluconazole 150 mg tablet 150 mg PO Q3D Qty: 2 0RF Dexilant 30 mg capsule,biphase delayed releas 30 mg PO BID 30 Days Qty: 60 4RF Rx Instructions: Take one capsule orally twice a day naproxen 500 mg tablet 500 mg PO BID PRN (Reason: pain) Qty: 20 0RF Referrals: Ramiro Uriarte MD [Physician] - (Biliary colic evaluate for elective cholecystectomy) Interventions: ED Discharge Assessment Last Done: 03/07/22 15:08 Discharge Date/Time: 03/07/22 15:09
[2022-03-07 10:00] LABS: MANUAL DIFF FLAG NO
[2022-03-07 10:02] LABS: Basophils Percent Auto 0.9 % (0-2); Eosinophils Absolute Auto 0.1 X10*3/uL (0.0-0.4); Eosinophils Percent Auto 1.6 % (0-4); Hematocrit 38.7 % (37.0-47.0); Hemoglobin 13.5 g/dl (12.0-16.0); Lymphocytes Absolute Auto 1.7 X10*3/uL (1.2-4.9); Lymphocytes Percent Auto 51.6 % (20-40); Mean Corpuscular HGB Conc 34.9 g/dl (31.0-35.0); Mean Corpuscular Hemoglobin 31.9 pg (27.0-33.0); Mean Corpuscular Volume 91.5 fL (80.0-98.0); Mean Platelet Volume 9.1 fL (9.4-12.3); Monocytes Absolute Auto 0.2 X10*3/uL (0.1-1.2); Monocytes Percent Auto 6.6 % (2-11); Neutrophils Absolute Auto 1.3 x10*3/uL (2.0-8.3); Neutrophils Percent Auto 39.3 % (45-73); Platelet Count 205 X10*3/uL (160-400); Red Blood Count 4.23 X10*6/uL (4.20-5.50); Red Cell Distribution Width 12.5 % (11.0-16.0); White Blood Count 3.2 X10*3/uL (4.8-10.8)
[2022-03-07 10:12] LABS: Appearance Urine CLEAR; Color Urine YELLOW; Glucose Urine UA NEG (NEG); Leukocyte Esterase Urine NEG (NEG); Nitrite Urine NEG (NEG); PH 6.5 (5.0-8.0); Urine Blood NEG (NEG); Urine Ketones NEG (NEG); Urine Protein NEG (NEG-TRACE)
[2022-03-07 13:46] LABS: Alanine Aminotransferase 11 U/L (0-31); Albumin Level 4.4 g/dL (3.5-5.0); Alkaline Phosphatase 55 U/L (39-117); Anion Gap 10 (12-20); Aspartate Amino Transferase 16 U/L (5-31); Bilirubin Direct 0.6 mg/dL (0.0-0.5); Bilirubin Total 1.6 mg/dL (0.0-1.0); Blood Urea Nitrogen 12 mg/dL (9-16); Calcium 9.6 mg/dL (8.4-10.2); Carbon Dioxide 27 mmol/L (22-29); Chloride 107 mmol/L (96-108); Estimated Glomerular Filt Rate > 60; Glucose Random 104 mg/dL (60-115); Lipase 14 U/L (8-78); Magnesium 2.1 mg/dL (1.6-2.6); Potassium 4.2 mmol/L (3.3-5.1); Sodium 140 mmol/L (135-145)
== END 2022-03-07 15:09 | disposition home or self-care (01) ==
PROVIDERS: Physician Assistant; Emergency Provider Emergency Medicine Emergency Medical Services; PCP Internal Medicine
DX: K80.50 Calculus of bile duct without cholangitis or cholecystitis without obstruction (principal); Z79.899 Other long term (current) drug therapy
CPT/HCPCS: 36415; 76705; 80048; 80076; 81003; 83690; 83735; 85025; 99283; 99284

== ENCOUNTER 2022-03-08 12:46 | Outpatient (REF) | payer OTHER, SELFPAY ==
[2022-03-08 13:22] LABS: Appearance Urine CLEAR; Color Urine YELLOW; Glucose Urine UA NEG (NEG); Leukocyte Esterase Urine NEG (NEG); Nitrite Urine NEG (NEG); Specific Gravity - Urine 1.015 (1.005-1.025); Urine Blood NEG (NEG); Urine Ketones NEG (NEG); Urine Protein NEG (NEG-TRACE)
== END 2022-03-08 12:47 | disposition home or self-care (01) ==
LOC: HO.LAB 12:46
PROVIDERS: PCP Internal Medicine; Visit Provider Internal Medicine
DX: R30.0 Dysuria (principal)
CPT/HCPCS: 81003

== ENCOUNTER → 2022-03-09 11:26 | Outpatient (BNVA) | payer OTHER, SELFPAY | PROVIDERS: PCP Internal Medicine; Visit Provider Surgery | DX: K58.0 Irritable bowel syndrome with diarrhea (principal); R10.11 Right upper quadrant pain | CPT/HCPCS: 99202 ==

== ENCOUNTER → 2022-03-26 08:41 | Outpatient (BNVA) | payer OTHER, SELFPAY | PROVIDERS: PCP Internal Medicine; Visit Provider Physician Assistant | DX: R10.11 Right upper quadrant pain (principal); K21.9 Gastro-esophageal reflux disease without esophagitis; R17 Unspecified jaundice; Z86.19 Personal history of other infectious and parasitic diseases | CPT/HCPCS: 99212 ==

== ENCOUNTER 2022-03-27 10:34 | Outpatient (REF) | payer OTHER, SELFPAY ==
[2022-03-27 10:45] LABS: MANUAL DIFF FLAG NO
[2022-03-27 11:08] LABS: Basophils Percent Auto 0.6 % (0-2); Eosinophils Absolute Auto 0.1 X10*3/uL (0.0-0.4); Eosinophils Percent Auto 2.3 % (0-4); Hematocrit 37.8 % (37.0-47.0); Hemoglobin 12.8 g/dl (12.0-16.0); Imm Gran Abs Auto 0.01 X10*3/uL (0.00-0.03); Imm Gran Pct Auto 0.3 % (0.0-0.4); Lymphocytes Absolute Auto 1.5 X10*3/uL (1.2-4.9); Lymphocytes Percent Auto 47.6 % (20-40); Mean Corpuscular HGB Conc 33.9 g/dl (31.0-35.0); Mean Corpuscular Hemoglobin 30.9 pg (27.0-33.0); Mean Corpuscular Volume 91.3 fL (80.0-98.0); Mean Platelet Volume 9.7 fL (9.4-12.3); Monocytes Absolute Auto 0.3 X10*3/uL (0.1-1.2); Monocytes Percent Auto 8.1 % (2-11); Neutrophils Absolute Auto 1.3 x10*3/uL (2.0-8.3); Neutrophils Percent Auto 41.1 % (45-73); Platelet Count 201 X10*3/uL (160-400); Red Blood Count 4.14 X10*6/uL (4.20-5.50); Red Cell Distribution Width 11.9 % (11.0-16.0); White Blood Count 3.1 X10*3/uL (4.8-10.8)
[2022-03-27 11:50] LABS: Alanine Aminotransferase 13 U/L (0-31); Albumin Level 4.1 g/dL (3.5-5.0); Alkaline Phosphatase 59 U/L (39-117); Anion Gap 12 (12-20); Aspartate Amino Transferase 17 U/L (5-31); Bilirubin Total 2.4 mg/dL (0.0-1.0); Blood Urea Nitrogen 10 mg/dL (9-16); Calcium 9.3 mg/dL (8.4-10.2); Carbon Dioxide 27 mmol/L (22-29); Chloride 106 mmol/L (96-108); Cholesterol 151 mg/dL; Estimated Glomerular Filt Rate > 60; Glucose Fasting 98 mg/dL (60-99); HDL Cholesterol 76 mg/dL; LDL Cholesterol Calculated 68 mg/dl; Potassium 4.5 mmol/L (3.3-5.1); Sodium 140 mmol/L (135-145); Total Protein 6.5 g/dL (6.5-8.0); Triglycerides 38 mg/dL; Vitamin D 25-OH Total 22.8 ng/mL (>30)
== END 2022-03-27 10:35 | disposition home or self-care (01) ==
LOC: HO.LAB 10:34
PROVIDERS: PCP Internal Medicine; Visit Provider Internal Medicine
DX: R10.11 Right upper quadrant pain (principal); E78.5 Hyperlipidemia, unspecified; E55.9 Vitamin D deficiency, unspecified
CPT/HCPCS: 36415; 80053; 80061; 82306; 85025

== ENCOUNTER 2022-04-19 16:50 | Outpatient (REF) | payer OTHER, SELFPAY ==
[2022-04-21 09:06] LABS: H Pylori Breath Test Negative (Negative)
== END 2022-04-19 16:51 | disposition home or self-care (01) ==
LOC: HO.LNP 16:50
PROVIDERS: Visit Provider Physician Assistant
DX: A04.8 Other specified bacterial intestinal infections (principal)
CPT/HCPCS: 83013

== ENCOUNTER 2022-04-24 09:42 | Outpatient (REF) | payer OTHER, SELFPAY ==
[2022-04-24 10:42] LABS: Alanine Aminotransferase 16 U/L (0-31); Albumin Level 4.3 g/dL (3.5-5.0); Alkaline Phosphatase 57 U/L (39-117); Aspartate Amino Transferase 16 U/L (5-31); Bilirubin Direct 0.7 mg/dL (0.0-0.5); Total Protein 6.6 g/dL (6.5-8.0)
[2022-04-24 10:54] LABS: Gamma Glutamyl Transpeptidase 23 U/L (7-33)
[2022-04-27 13:07] LABS: Mitochondrial Antibodies NEGATIVE (NEGATIVE)
[2022-04-27 22:03] LABS: Smooth Muscle Antibody <20 U (<20)
== END 2022-04-24 09:43 | disposition home or self-care (01) ==
LOC: HO.LAB 09:42
PROVIDERS: Absent Provider Internal Medicine; PCP Internal Medicine; Visit Provider Nurse Practitioner
DX: R10.11 Right upper quadrant pain (principal); R17 Unspecified jaundice; K21.9 Gastro-esophageal reflux disease without esophagitis; K58.0 Irritable bowel syndrome with diarrhea; Z86.19 Personal history of other infectious and parasitic diseases
CPT/HCPCS: 36415; 80076; 82247; 82248; 82977; 86015; 86255; 86256; 99212

== ENCOUNTER → 2022-05-02 08:23 | Outpatient (REF) | payer OTHER, SELFPAY ==
--- NOTE | ~2022-05-02 | NM_ITS ---
EXAMINATION: BILIARY TRACT IMAGING STUDY WITH CCK ALTERNATIVE (SUPPLEMENT-STIMULATED CHOLESCINTIGRAPHY). CLINICAL INFORMATION: Unspecified Jaundice. COMPARISON: Right upper quadrant abdominal ultrasound done on 03/07/2022. HIDA scan done on 07/20/2019.. TECHNIQUE: Serial gamma scintillation camera images were obtained over the abdomen for a total observation period of 60 minutes following the intravenous administration of 5 mCi Tc-99m mebrofenin. FINDINGS: There is good concentration of activity in the liver by 5 minutes post injection. Biliary activity is visualized by 10 minutes. The gallbladder is well visualized by 20 minutes. Small bowel is well visualized by 15 minutes. At 60 minutes post radiopharmaceutical injection, following injection of 8 ounces of Ensure, an additional 60 minutes of images were obtained. There is good emptying of the gallbladder. By the end of the study there is good clearance of activity from the liver and visualization of diffuse small bowel activity. The calculated gallbladder ejection fraction is 85% (normal gallbladder ejection fraction is greater than 33%). Please note that due to non-availability of CCK, alternative methodology using a lactose-free Fatty-meal food supplement (8 ounces of Ensure) was used (Reference article: Journal of nuclear medicine 2003; 44:8474-9822). No significant change since prior study done on 07/20/2019. NM/NM hepatobiliary wo pharm IMPRESSION: Visualization of the gallbladder is evidence of a patent cystic duct and strong evidence against the diagnosis of acute cholecystitis. The common bile duct is patent. Gallbladder emptying and ejection fraction are normal. Liver function appears normal.
== END ==
LOC: HO.NUCMED 08:23
PROVIDERS: Visit Provider Nurse Practitioner
DX: R17 Unspecified jaundice (principal)
CPT/HCPCS: 78226; A9537

== ENCOUNTER → 2022-06-13 11:16 | Outpatient (BNVA) | payer OTHER, SELFPAY | PROVIDERS: PCP Internal Medicine; Visit Provider Nurse Practitioner | DX: K58.0 Irritable bowel syndrome with diarrhea (principal); K21.9 Gastro-esophageal reflux disease without esophagitis | CPT/HCPCS: 99212 ==

== ENCOUNTER 2022-07-23 10:26 | Emergency (ER) | payer OTHER, SELFPAY ==
--- NOTE | ~2022-07-23 | US_ITS ---
EXAMINATION: US ABDOMEN LIMITED CLINICAL INFORMATION: Right upper quadrant/flank pain. COMPARISON: 03/07/2022 abdominal ultrasound. TECHNIQUE: Real-time imaging of the right upper quadrant abdominal viscera. FINDINGS: PANCREAS: Visualized portions unremarkable. LIVER: Small calcified nodules centrally in the right lobe without other significant abnormality or change. GALLBLADDER: Unremarkable. COMMON BILE DUCT: Normal in caliber measuring 0.7 cm in diameter. RIGHT KIDNEY: 10.5 cm. Unremarkable. FREE FLUID: None. US/US abdomen limited IMPRESSION: Unremarkable right upper quadrant ultrasound.
[2022-07-23 10:45] VITALS: BP 141/78; PULSE 72; RESP 18; TEMP 36.6; O2SAT 99; BMI 25.1
[2022-07-23 11:09] LABS: Hematocrit 36.1 % (37.0-47.0); Hemoglobin 12.2 g/dl (12.0-16.0); Mean Corpuscular HGB Conc 33.8 g/dl (31.0-35.0); Mean Corpuscular Hemoglobin 31.2 pg (27.0-33.0); Mean Corpuscular Volume 92.3 fL (80.0-98.0); Mean Platelet Volume 9.1 fL (9.4-12.3); Platelet Count 192 X10*3/uL (160-400); Red Blood Count 3.91 X10*6/uL (4.20-5.50); Red Cell Distribution Width 12.7 % (11.0-16.0); White Blood Count 2.8 X10*3/uL (4.8-10.8)
[2022-07-23 11:31] LABS: Alanine Aminotransferase 13 U/L (0-31); Alkaline Phosphatase 61 U/L (39-117); Anion Gap 7 (12-20); Aspartate Amino Transferase 17 U/L (5-31); Bilirubin Direct 0.7 mg/dL (0.0-0.5); Bilirubin Total 2.1 mg/dL (0.0-1.0); Blood Urea Nitrogen 9 mg/dL (9-16); Calcium 9.3 mg/dL (8.4-10.2); Carbon Dioxide 29 mmol/L (22-29); Chloride 108 mmol/L (96-108); Creatinine Clr Calc Pharmacy 104.1; Estimated Glomerular Filt Rate > 60; Glucose Random 103 mg/dL (60-115); Lipase 12 U/L (8-78); Potassium 4.3 mmol/L (3.3-5.1); Sodium 140 mmol/L (135-145); Total Protein 6.1 g/dL (6.5-8.0)
--- NOTE | 2022-07-23 13:45 | ED_ITS ---
HPI - Abdominal Pain General Chief Complaint: Abdominal Pain <Rachael Mattson CNP - Last Filed: 07/23/22 17:26> Stated Complaint: abd pain <Rachael Mattson CNP - Last Filed: 07/23/22 17:26> Time Seen by Provider: 07/23/22 17:47 <Rachael Mattson CNP - Last Filed: 07/23/22 17:26> Source: patient <Sean Corrales MD - Last Filed: 07/23/22 18:42> Mode of arrival: ambulatory <Sean Corrales MD - Last Filed: 07/23/22 18:42> Limitations: no limitations <Sean Corrales MD - Last Filed: 07/23/22 18:42> History of Present Illness HPI narrative: Patient 46-year-old with history of IBS chronic gastritis been followed by GI at multiple ultrasound CT scan which were negative comes here for similar epigastric pain associated with nausea with increased anxiety patient been drinking sucralfate without much response unable to sleep with increased stress no diarrhea feel bloated patient had ultrasound done prior to my evaluation which was negative for gallstones or any abnormality Patient does have poor sleep increased anxiety <Sean Corrales MD - Last Filed: 07/23/22 18:42> Related Data Home Medications: Home Medications Medication Instructions Recorded Confirmed albuterol sulfate 90 mcg/actuation 0 mcg inhalation Q4H PRN 04/24/22 05/01/22 aerosol inhaler (ProAir HFA) Previous Rx's Medication Instructions Recorded sumatriptan succinate 25 mg tablet 25 mg PO Q2-4H PRN migraine 12/14/21 headache 30 days #9 tabs naproxen 500 mg tablet 500 mg PO BID PRN pain #20 tabs 01/04/22 cholecalciferol (vitamin D3) 25 25 mcg PO DAILY 90 days #90 caps 03/29/22 mcg (1,000 unit) capsule fluticasone propionate 50 1 spray intranasal DAILY 30 days 05/01/22 mcg/actuation nasal #16 grams spray,suspension loratadine 10 mg tablet (Allergy 10 mg PO DAILY 90 days #90 tabs 05/01/22 Relief (loratadine)) dexlansoprazole 60 mg 60 mg PO DAILY 30 days #30 caps 06/13/22 capsule,biphase delayed release (Dexilant) ondansetron 4 mg disintegrating 4 mg PO Q8H PRN nausea and 06/13/22 tablet vomiting #7 tabs sucralfate 100 mg/mL oral 20 ml PO .qhs #1,000 mL 06/13/22 suspension (Carafate) lorazepam 1 mg tablet (Ativan) 1 mg PO BEDTIME PRN anxiety #20 07/23/22 tabs <Rachael Mattson CNP - Last Filed: 07/23/22 17:26> Allergies/Adverse Reactions: Allergies Allergy/AdvReac Type Severity Reaction Status Date / Time latex [LATEX] Allergy Unknown RASH Verified 06/13/22 11:27 lactose AdvReac Severe Abdominal Verified 06/13/22 11:27 Pain amoxicillin [AMOXICILLIN] AdvReac Unknown VOMITTING Verified 06/13/22 11:27 AND NAUSEA, abdominal pain, N/V and diarrhea <Rachael Mattson CNP - Last Filed: 07/23/22 17:26> Review of Systems Review of Systems Yes all other systems are reviewed and are negative <Sean Corrales MD - Last Filed: 07/23/22 18:42> [facility] Past Medical History Medical History: Medical History Allergic rhinitis Breast mass Breast mass Chronic leukopenia Fatigue H/O sigmoidoscopy Left foot pain Lumbar pain Migraines <Rachael Mattson CNP - Last Filed: 07/23/22 17:26> Surgical History: Surgical History H/O LEEP History of appendectomy History of esophagogastroduodenoscopy (EGD) History of shoulder surgery History of tubal ligation <Rachael Mattson CNP - Last Filed: 07/23/22 17:26> Family History Family History: Family History Father Diabetes Hypertension Mother Osteoporosis Glaucoma Maternal Uncle Stomach cancer Colon cancer H/O: lung cancer Maternal Grandmother Gallbladder cancer Maternal Aunt Liver cancer Paternal Grandmother Alzheimers disease Maternal Grandfather Glaucoma Heart attack <Rachael Mattson CNP - Last Filed: 07/23/22 17:26> Social History Social History: Social History Housing: House Alcohol intake: current Alcohol intake frequency: holidays/special occasions only Alcohol type: wine Patient Tobacco Use Status: Former Tobacco user e-Cigarette/Vaping Use: Never Used Second Hand Smoke Exposure: No service: No Current occupational status: employed Current occupational exposures/hazards: No Cognitive needs: No Hearing needs: No Vision needs: No <Rachael Mattson [employer] - Last Filed: 07/23/22 17:26> Physical Exam ED Vital Signs: Vital Signs - 24 hr 07/23/22 10:45 07/23/22 13:50 07/23/22 18:01 Temperature 98 F 98.5 F 98.2 F Pulse Rate 72 68 88 Respiratory Rate 18 18 18 Blood Pressure 141/78 H 130/77 123/87 Pulse Oximetry 99 100 99 Oxygen Delivery Method Room Air Room Air Room Air BMI result Body Mass Index 25.1 <Rachael Mattson [employer]BER - Last Filed: 07/23/22 17:26> Vital Signs - 24 hr 07/23/22 10:45 07/23/22 13:50 07/23/22 18:01 Temperature 98 F 98.5 F 98.2 F Pulse Rate 72 68 88 Respiratory Rate 18 18 18 Blood Pressure 141/78 H 130/77 123/87 Pulse Oximetry 99 100 99 Oxygen Delivery Method Room Air Room Air Room Air BMI result Body Mass Index 25.1 <Sean Corrales MD - Last Filed: 07/23/22 18:42> Appearance: Alert. Oriented X3. No acute distress. Eyes: No pallor or icterus ENT: Pharynx normal. Oral Mucosa moist Neck: Normal inspection. Neck supple. CVS: Normal heart rate and rhythm. Pulses normal. Respiratory: No respiratory distress. Equal air entry bilateral, no wheezing/rales/rhonchi Abdomen: Soft mild epigastric tenderness Bowel sounds are present, no mass palpable, no CVA tenderness Skin: Skin warm and dry. Normal skin color. Normal skin turgor. Extremities: No lower extremity edema. No calf tenderness Neuro: Oriented X 3. No motor deficit. <Sean Corrales MD - Last Filed: 07/23/22 18:42> Course Course Course Narrative: RME: Patient is a 46-year-old female who presents to the emergency department for evaluation of abdominal pain. While waiting in the waiting room she reported increase in pain and requested re-evaluation. She reports 04:00 with RUQ abd pain, intermittent with varying intensity. Denies nausea or vomiting, fevers of chills. Has RX for oxycodone for ABD pain, she states she took with and sulcrafate without improvement. Reports hx of appendectomy. Reviewed labs obtained from initial triage; CBC, CMP, lipase overall unchanged when compared to baseline. Will obtain ultrasound of the right upper quadrant and renal ultrasound. Patient received acetaminophen for pain. <Rachael Mattson CNP - Last Filed: 07/23/22 17:26> Medical Decision Making Medical Decision Making [facility] Narrative: Patient with chronic gastritis with reflux problem with IV with anxiety multiple workup negative in the past today also workup is negative without any acute pathology an ultrasound. Will discharge patient home on Ativan advised to continue sucralfate and dicyclomine likely the etiology is IBS with gastritis <Sean Corrales MD - Last Filed: 07/23/22 18:42> Lab Data [facility] Lab Attestation statement: I reviewed the patient's lab results. <Sean Corrales MD - Last Filed: 07/23/22 18:42> Result Diagrams: : 07/23/22 10:59 07/23/22 10:59 <Rachael Mattson CNP - Last Filed: 07/23/22 17:26> Labs: Lab Results 07/23/22 07/23/22 Range/Units 10:59 10:59 WBC 2.8 L (4.8-10.8) X10*3/uL RBC 3.91 L (4.20-5.50) X10*6/uL Hgb 12.2 (12.0-16.0) g/dl Hct 36.1 L (37.0-47.0) % MCV 92.3 (80.0-98.0) fL MCH 31.2 (27.0-33.0) pg MCHC 33.8 (31.0-35.0) g/dl RDW 12.7 (11.0-16.0) % Plt Count 192 (160-400) X10*3/uL MPV 9.1 L (9.4-12.3) fL Absolute Nucleated RBC 0.000 (0.0-0.012) X10*3/uL Nucleated RBC % (auto) 0.0 (0.0-0.2) /100WBC Sodium 140 (135-145) mmol/L Potassium 4.3 (3.3-5.1) mmol/L Chloride 108 (96-108) mmol/L Carbon Dioxide 29 (22-29) mmol/L Anion Gap 7 L (12-20) BUN 9 (9-16) mg/dL Creatinine 0.72 (0.5-1.4) mg/dL Estim Creat Clear Calc 104.1 Estimated GFR > 60 Random Glucose 103 (60-115) mg/dL Calcium 9.3 (8.4-10.2) mg/dL Total Bilirubin 2.1 H (0.0-1.0) mg/dL Direct Bilirubin 0.7 H (0.0-0.5) mg/dL AST 17 (5-31) U/L ALT 13 (0-31) U/L Alkaline Phosphatase 61 (39-117) U/L Total Protein 6.1 L (6.5-8.0) g/dL Albumin 4.0 (3.5-5.0) g/dL Lipase 12 (8-78) U/L <Rachael Mattson, [employer]BER - Last Filed: 07/23/22 17:26> Lab Results 07/23/22 07/23/22 Range/Units 10:59 10:59 WBC 2.8 L (4.8-10.8) X10*3/uL RBC 3.91 L (4.20-5.50) X10*6/uL Hgb 12.2 (12.0-16.0) g/dl Hct 36.1 L (37.0-47.0) % MCV 92.3 (80.0-98.0) fL MCH 31.2 (27.0-33.0) pg MCHC 33.8 (31.0-35.0) g/dl RDW 12.7 (11.0-16.0) % Plt Count 192 (160-400) X10*3/uL MPV 9.1 L (9.4-12.3) fL Absolute Nucleated RBC 0.000 (0.0-0.012) X10*3/uL Nucleated RBC % (auto) 0.0 (0.0-0.2) /100WBC Sodium 140 (135-145) mmol/L Potassium 4.3 (3.3-5.1) mmol/L Chloride 108 (96-108) mmol/L Carbon Dioxide 29 (22-29) mmol/L Anion Gap 7 L (12-20) BUN 9 (9-16) mg/dL Creatinine 0.72 (0.5-1.4) mg/dL Estim Creat Clear Calc 104.1 Estimated GFR > 60 Random Glucose 103 (60-115) mg/dL Calcium 9.3 (8.4-10.2) mg/dL Total Bilirubin 2.1 H (0.0-1.0) mg/dL Direct Bilirubin 0.7 H (0.0-0.5) mg/dL AST 17 (5-31) U/L ALT 13 (0-31) U/L Alkaline Phosphatase 61 (39-117) U/L Total Protein 6.1 L (6.5-8.0) g/dL Albumin 4.0 (3.5-5.0) g/dL Lipase 12 (8-78) U/L <Sean Corrales MD - Last Filed: 07/23/22 18:42> Medications Administered Discontinued Medications Generic Name Dose Route Start Last Admin Trade Name Freq PRN Reason Stop Dose Admin Acetaminophen 975 mg 07/23/22 13:46 07/23/22 13:55 Acetaminophen 325 Mg Tablet PO 07/23/22 13:47 975 mg ONCE ONE Administration <Rachael Mattson CNP - Last Filed: 07/23/22 17:26> Medications Administered Discontinued Medications Generic Name Dose Route Start Last Admin Trade Name Freq PRN Reason Stop Dose Admin Acetaminophen 975 mg 07/23/22 13:46 07/23/22 13:55 Acetaminophen 325 Mg Tablet PO 07/23/22 13:47 975 mg ONCE ONE Administration <Sean Corrales MD - Last Filed: 07/23/22 18:42> Discharge Plan Discharge Clinical Impression: Chronic gastritis, Irritable bowel syndrome <Rachael Mattson CNP - Last Filed: 07/23/22 17:26> Patient Disposition: Home, Self-Care <Rachael Mattson CNP - Last Filed: 07/23/22 17:26> Instructions: Gastritis (ED), Irritable Bowel Syndrome (ED) <Rachael Mattson CNP - Last Filed: 07/23/22 17:26> Additional Instructions: Take medication as prescribed and follow-up with your production support manager <Rachael Mattson CNP - Last Filed: 07/23/22 17:26> Prescriptions: New lorazepam [Ativan] 1 mg tablet 1 mg PO BEDTIME PRN (Reason: anxiety) Qty: 20 0RF No Action sumatriptan succinate 25 mg tablet 25 mg PO Q2-4H PRN (Reason: migraine headache) 30 Days Qty: 9 6RF Rx Instructions: do not exceed 8 doses per 24 hrs cholecalciferol (vitamin D3) 25 mcg (1,000 unit) capsule 25 mcg PO DAILY 90 Days Qty: 90 1RF naproxen 500 mg tablet 500 mg PO BID PRN (Reason: pain) Qty: 20 0RF fluticasone propionate 50 mcg/actuation spray,suspension 1 spray intranasal DAILY 30 Days Qty: 16 3RF Rx Instructions: administer into each nostril loratadine [Allergy Relief (loratadine)] 10 mg tablet 10 mg PO DAILY 90 Days Qty: 90 3RF albuterol sulfate [ProAir HFA] 90 mcg/actuation HFA aerosol inhaler 0 mcg inhalation Q4H PRN ondansetron 4 mg tablet,disintegrating 4 mg PO Q8H PRN (Reason: nausea and vomiting) Qty: 7 0RF sucralfate [Carafate] 100 mg/mL suspension 20 ml PO .qhs Qty: 1000 6RF dexlansoprazole [Dexilant] 60 mg capsule,biphase delayed releas 60 mg PO DAILY 30 Days Qty: 30 6RF <Rachael Mattson CNP - Last Filed: 07/23/22 17:26>
[2022-07-23 13:50] VITALS: BP 130/77; PULSE 68; RESP 18; TEMP 36.9; O2SAT 100
[2022-07-23] MEDS: Acetaminophen 325 MG TABLET 975 MG PO (13:55)
[2022-07-23 18:01] VITALS: BP 123/87; PULSE 88; RESP 18; TEMP 36.8; O2SAT 99
[2022-07-23] MEDS: LORazepam 1 MG TABLET PO (18:41)
[2022-07-23] MEDS: Lidocaine HCl Viscous 2 % 15 ML SOLUTION MUCOUS MEM (18:41)
== END 2022-07-23 18:45 | disposition home or self-care (01) ==
PROVIDERS: Emergency Provider Internal Medicine; PCP Internal Medicine
DX: K29.00 Acute gastritis without bleeding (principal); K58.9 Irritable bowel syndrome, unspecified; Z79.899 Other long term (current) drug therapy
CPT/HCPCS: 36415; 76705; 80048; 80076; 83690; 85027; 99284

== ENCOUNTER → 2022-07-26 16:31 | Outpatient (BNVA) | payer OTHER, SELFPAY | PROVIDERS: PCP Internal Medicine; Visit Provider Nurse Practitioner | DX: K58.0 Irritable bowel syndrome with diarrhea (principal); K21.9 Gastro-esophageal reflux disease without esophagitis; F41.9 Anxiety disorder, unspecified | CPT/HCPCS: 99212 ==

== ENCOUNTER → 2022-11-16 08:14 | Outpatient (BNVA) | payer SELFPAY | PROVIDERS: PCP Internal Medicine; Visit Provider Physician Assistant Medical | DX: Z02.79 Encounter for issue of other medical certificate (principal) ==

== ENCOUNTER 2023-01-17 13:09 | Outpatient (REF) | payer OTHER, SELFPAY ==
[2023-01-17 14:10] LABS: Appearance Urine Clear; Color Urine Yellow; Glucose Urine UA Negative (Negative); Leukocyte Esterase Urine Negative (Negative); Nitrite Urine Negative (Negative); UMIC TRIGGER UACC YES; Urine Blood Moderate (2+) (Negative); Urine Ketones Negative (Negative); Urine Protein Negative (Neg-Trace)
[2023-01-17 14:17] LABS: Bacteria Urine None Seen (None Seen); Hyaline Casts Urine 0-2 /LPF (0-2); Squamous Epithelial Cell Urine 0-2 /HPF (0-2); WBC Urine 0-5 /HPF (0-5)
== END 2023-01-17 13:10 | disposition home or self-care (01) ==
LOC: HO.LAB 13:09
PROVIDERS: PCP Internal Medicine; Visit Provider Internal Medicine
DX: R30.0 Dysuria (principal)
CPT/HCPCS: 81001

== ENCOUNTER → 2023-01-31 12:30 | Outpatient (BNV) | payer OTHER, SELFPAY | PROVIDERS: PCP Internal Medicine; Visit Provider Radiology Diagnostic Radiology | DX: Z12.31 Encounter for screening mammogram for malignant neoplasm of breast (principal) | CPT/HCPCS: 77063; 77067 ==

== ENCOUNTER 2023-01-31 12:41 | Outpatient (REF) | payer OTHER, SELFPAY ==
--- NOTE | ~2023-01-31 | MM_ITS ---
EXAMINATION: MM SCREENING DIGITAL BREAST TOMOSYNTHESIS, BILATERAL CLINICAL INFORMATION: Screening. Asymptomatic. The lifetime risk of breast cancer based on the Tyrer-Cuzick Model is 8.4%. COMPARISON: Mammography: This study is compared to prior exams dating back to 2018. TECHNIQUE: Digital breast tomosynthesis is performed in both the craniocaudal and mediolateral oblique views along with computer-aided detection (CAD). Synthesized 2D images are generated from the tomosynthesis. FINDINGS: The breasts are heterogeneously dense, which may obscure small masses (ACR BI-RADS breast composition Category c). There are no significant masses, abnormal calcifications, or other abnormalities. MM/MM tomosynthesis screening BI IMPRESSION: No mammographic evidence of malignancy. ASSESSMENT: BI-RADS BI-RADS 1 - Negative RECOMMENDATION: Routine annual mammography screening. 1 year F/U This patient's information was entered into a reminder system with a target due date for their next mammogram.
== END 2023-01-31 12:42 | disposition home or self-care (01) ==
LOC: HO.MAMMO 12:41
PROVIDERS: PCP Internal Medicine; Visit Provider Internal Medicine
DX: Z12.31 Encounter for screening mammogram for malignant neoplasm of breast (principal)
CPT/HCPCS: 77063; 77067

== ENCOUNTER 2023-02-20 09:07 | Outpatient (REF) | payer OTHER, SELFPAY ==
--- NOTE | ~2023-02-20 | US_ITS ---
EXAMINATION: US COMPLETE ABDOMEN WITH LIVER ELASTOGRAPHY CLINICAL INFORMATION: Right upper quadrant pain. COMPARISON: Abdominal ultrasound dated 07/23/2022. TECHNIQUE: Real-time imaging of the abdominal viscera. Noninvasive ultrasound liver fibrosis assessment is performed using Archie ElastPQ point quantification shear wave elastography (2D-SWE) with a C5-2 MHz transducer. Multiple elastography samples are obtained. FINDINGS: PANCREAS: Normal. The visualized pancreatic head and body are normal in appearance. The remainder of the pancreas is obscured from visualization by the overlying bowel gas. ABDOMINAL AORTA: The proximal, middle, and distal aortic segments are normal in caliber. INFERIOR VENA CAVA: Visualized portions are normal. LIVER: Normal. The liver demonstrates normal size, contour and echogenicity. No focal lesion or intrahepatic biliary duct dilatation. The right lobe measures 16.4 cm in length. The left lobe measures 12.0 cm in length. Portal flow is towards the liver (hepatopetal). Shear wave liver elastography median stiffness is 1.48 m/s (reference: normal median stiffness is 1.3 m/s or less). IQR/median stiffness to assess sampling precision is 0.09 (reference: good quality data set is IQR/median stiffness of 0.15 or less). GALLBLADDER: Normal. The gallbladder is physiologically distended without evidence of stones, sludge, polyps, wall thickening or pericholecystic fluid. COMMON BILE DUCT: Normal in caliber measuring 0.4 cm in diameter. RIGHT KIDNEY: Normal. No hydronephrosis. No renal calculi or focal parenchymal lesions. The kidney measures 10.0 cm in maximum dimension. LEFT KIDNEY: Normal. No hydronephrosis. No renal calculi or focal parenchymal lesions. The kidney measures 10.2 cm in maximum dimension. SPLEEN: Normal. The spleen measures 8.4 cm in maximum dimension. FREE FLUID: None. US/US abdomen comp w elastography IMPRESSION: Liver elastography: In the absence of other known clinical signs, measurements rule out compensated advanced chronic liver disease. If there are known clinical signs, further testing may be needed for confirmation. REFERENCE: Society of Radiologists in Ultrasound Liver Stiffness Thresholds (2020): LIVER STIFFNESS THRESHOLDS: *Liver Stiffness equal or less than 1.3 m/s: High probability of being normal. *Liver Stiffness less than 1.7 m/s: In the absence of other known clinical signs, rules out compensated advanced chronic liver disease. *Liver Stiffness 1.7-2.1 m/s: Suggestive of compensated advanced chronic liver disease but need further test for confirmation. *Liver Stiffness over 2.1 m/s: Rules in compensated advanced chronic liver disease. *Liver Stiffness over 2.4 m/s: Suggestive of clinically significant portal hypertension. QUALITY OF DATA SET: *IQR/Median value equal or less than 0.15 implies a quality data set. *IQR/Median value over 0.15 implies a poor quality data set. SIGNIFICANT CHANGE FROM PRIOR EXAM: Significant change if liver stiffness measurement is 10% or greater from prior exam. OTHER CONSIDERATIONS: The stage of liver fibrosis may be overestimated in the setting of acute hepatitis, liver inflammation, elevated liver function tests, hepatic vascular congestion, obstructive cholestasis, non-fasting state, and infiltrative diseases such as amyloidosis and lymphoma. In some patients with NAFLD, the liver stiffness thresholds for compensated advanced chronic liver disease may be lower. In causes other than viral hepatitis and NAFLD, liver stiffness thresholds are not well established.
== END 2023-02-20 09:08 | disposition home or self-care (01) ==
LOC: HO.US 09:07
PROVIDERS: Visit Provider Internal Medicine
DX: R10.11 Right upper quadrant pain (principal)
CPT/HCPCS: 76705; 76981

== ENCOUNTER 2023-03-08 08:04 | Outpatient (REF) | payer OTHER, SELFPAY ==
--- NOTE | ~2023-03-08 | FL_ITS ---
EXAMINATION: XR GI SERIES CLINICAL INFORMATION: Gastroesophageal reflux disease without esophagitis. COMPARISON: None available. TECHNIQUE: Routine upper GI air-contrast study was performed in upright and lying position. FINDINGS: Following oral administration of thick barium and effervescent granules there is normal propagation of bolus from the oral cavity through the pharynx, esophagus into stomach without any evidence of obstruction, narrowing or stricture. On placing patient supine and prone lying the course, caliber and peristalsis of the stomach, duodenal bulb and the sweep is normal. The mucosal pattern of the stomach and the duodenum is normal. There is mild gastroesophageal reflux. FLUOROSCOPY TIME: 1.6 minutes DOSE AREA PRODUCT: 24.325 uGy-m2 (microgray-meter squared) FL/FL upper GI series IMPRESSION: Mild gastroesophageal reflux otherwise unremarkable upper GI air-contrast study.
== END 2023-03-08 08:05 | disposition home or self-care (01) ==
LOC: HO.XRAY 08:04
PROVIDERS: PCP Internal Medicine; Visit Provider Internal Medicine
DX: K21.9 Gastro-esophageal reflux disease without esophagitis (principal)
CPT/HCPCS: 74240

== ENCOUNTER → 2023-03-08 08:06 | Outpatient (BNV) | payer OTHER, SELFPAY | PROVIDERS: PCP Internal Medicine; Visit Provider Radiology Diagnostic Radiology | DX: K21.9 Gastro-esophageal reflux disease without esophagitis (principal) | CPT/HCPCS: 74246 ==

== ENCOUNTER 2023-03-28 15:10 | Outpatient (AMB) | payer OTHER, SELFPAY ==
[2023-03-28 15:11] VITALS: BP 108/52; BMI 26.0
--- NOTE | 2023-03-28 15:11 | A.OFFVIS_ITS ---
Intake Vital Signs 03/28/23 15:11 Height 5 ft 9 in Weight 176 lb BMI 26.0 BP 108/52 L Intake Visit Reasons: vaginal itch Intake Note: Vaginal itch x 4 days The patient agreed to use of a medical clerical assistant during this encounter. Scribed for EBONY Rivera by Yolanda Willingham medical clerical assistant, on 03/28/2023. Male Impersonator Required: Yes Male Impersonator Language: Blower Insulator Name: Diane AGUSTIN Information Interpreted: non-clinical & clinical [employer] Financial Developer: [employer] Financial Developer Present (Diane AGUSTIN) Accompanied by: Self / Same As Patient Allergies latex [LATEX] Allergy (Unknown, Verified 03/28/23 15:15) RASH lactose Adverse Reaction (Severe, Verified 03/28/23 15:15) Abdominal Pain amoxicillin [AMOXICILLIN] Adverse Reaction (Unknown, Verified 03/28/23 15:15) VOMITTING AND NAUSEA, abdominal pain, N/V and diarrhea Is last menstrual period known: Yes Last menstrual period: 03/08/23 HPI HPI Comments History of Present Illness Details She is here for vaginal irritation and is unsure if its due to new toilet paper. Reports this is her first episode. Denies scratching area, any new soaps, lotions, powders, waxing, vaginal odors/discharge, urinary symptoms. or hx of herpes in the past. Reports washing area with just water. Reports h/o constipation and has prior abdomen pain, seeing a GI specialist. [facility] Medical History Allergic rhinitis Breast mass Breast mass Chronic leukopenia Fatigue H/O sigmoidoscopy Left foot pain Lumbar pain Migraines Vaginal irritation Surgical History H/O LEEP History of appendectomy History of esophagogastroduodenoscopy (EGD) History of shoulder surgery History of tubal ligation Family History Father Diabetes Hypertension Mother Osteoporosis Glaucoma Maternal Uncle Stomach cancer Colon cancer H/O: lung cancer Maternal Grandmother Gallbladder cancer Maternal Aunt Liver cancer Paternal Grandmother Alzheimers disease Maternal Grandfather Glaucoma Heart attack Social History Housing: House Alcohol intake: current Alcohol intake frequency: holidays/special occasions only Alcohol type: wine Patient Tobacco Use Status: Former Tobacco user e-Cigarette/Vaping Use: Never Used Second Hand Smoke Exposure: No service: No Current occupational status: employed Current occupational exposures/hazards: No Cognitive needs: No Hearing needs: No Vision needs: No Female Reproductive History Menstrual Age of Menarche: 15 Duration of menses: 3-5 days Date of last menstrual period: 03/08/23 Physical Exam Vital Signs: Last Vital Signs BP 108/52 L 03/28/23 15:11 BMI result Body Mass Index 26.0 Const General: cooperative, healthy appearing, comfortable, no acute distress, well developed, alert and awake GI Other: slight tenderness in the right mid abdomen Other: left sided gillian anal skin excoriations General: Yes bladder normal to palpation External Female Exam: erythema Speculum Exam - Vagina: normal appearance of the vagina, normal palpation and abnormal vaginal discharge white (thin) Speculum Exam - Cervix: normal appearance of the cervix and normal palpation Bimanual exam- vagina & uterus: normal bimanual exam, normal palpation, bladder normal to palpation and normal palpation Bimanual Exam- Adnexa, other: normal adnexae and no masses Assessment & Plan Assessment & Plan (1) Vaginal irritation: Code(s): N89.8 - Other specified noninflammatory disorders of vagina Plan: Discussed: HSV culture, BV testing and GC/CT panel done today. Await results and treat accordingly. Advised to clean with water only, no soaps to the area, dry well, apply Aquaphor and wear cotton underwear. All of her questions and concerns were addressed to the best of my ability and shared decision making. She is agreeable to plan of care. (2) Constipation: Code(s): K59.00 - Constipation, unspecified Plan: Maintaining a healthy lifestyle including a well balanced diet including fiber and hydrate well with water. Follow up with GI specialist. Orders: Orders Bacterial Vaginosis Panel Today N89.8 - Other specified noninflammatory disorders of vagina CT NG by PCR Today N89.8 - Other specified noninflammatory disorders of vagina Herpes Virus Culture rflx Type Today N89.8 - Other specified noninflammatory disorders of vagina Coding Level of Care Code Est Pt Level 3 (39553) Diagnoses Vaginal irritation N89.8 Constipation K59.00
== END 2023-03-28 15:53 | disposition home or self-care (01) ==
LOC: HO.HWS 15:10
PROVIDERS: PCP Internal Medicine; Visit Provider Advanced Practice Midwife
DX: N89.8 Other specified noninflammatory disorders of vagina (principal); K59.00 Constipation, unspecified
CPT/HCPCS: 99213

== ENCOUNTER 2023-03-28 15:10 | Outpatient (REF) | payer OTHER, SELFPAY | END 2023-03-28 15:11 | disposition home or self-care (01) | LOC: HO.LAB 15:10 | PROVIDERS: PCP Internal Medicine; Visit Provider Advanced Practice Midwife | DX: N89.8 Other specified noninflammatory disorders of vagina (principal); K59.00 Constipation, unspecified | CPT/HCPCS: 99212 ==

== ENCOUNTER 2023-03-28 15:38 | Outpatient (REF) | payer OTHER, SELFPAY ==
[2023-03-29 05:27] LABS: CT PCR NOT DETECTED (Not Detect.); NG PCR NOT DETECTED (Not Detect.)
[2023-03-29 15:44] LABS: BV Int Neg Control Negative (Negative); BV Int Pos Control Positive (Positive)
== END 2023-03-28 15:39 | disposition home or self-care (01) ==
LOC: HO.LNP 15:38
PROVIDERS: Visit Provider Advanced Practice Midwife
DX: N89.8 Other specified noninflammatory disorders of vagina (principal)
CPT/HCPCS: 0353U; 87255; 87480; 87510; 87660

== ENCOUNTER 2023-08-01 10:04 | Outpatient (AMB) | payer OTHER, SELFPAY ==
--- NOTE | 2023-08-01 10:09 | MHC.PC.OV ---
Vital Signs 08/01/23 10:10 Height 5 ft 9 in Weight 183 lb BMI 27.0 BP 120/70 Blood Pressure Location Lt brachial Position Sitting Intake Visit Reasons: gerd,migraines Intake Note: Patient here for a follow up Gerd, Migraines Telescope Maintenance Required: No Accompanied by: Self / Same As Patient Allergies latex [LATEX] Allergy (Unknown, Verified 08/01/23 10:20) RASH lactose Adverse Reaction (Severe, Verified 08/01/23 10:20) Abdominal Pain amoxicillin [AMOXICILLIN] Adverse Reaction (Unknown, Verified 08/01/23 10:20) VOMITTING AND NAUSEA, abdominal pain, N/V and diarrhea Medication List - Last Reconciled 08/01/23 by Dipti Santacruz MD albuterol sulfate 90 mcg/actuation (ProAir HFA) 0 mcg inhalation Q4H PRN cholecalciferol (vitamin D3) 25 mcg PO DAILY 90 days dexlansoprazole (Dexilant) 60 mg PO DAILY 90 days dicyclomine 20 mg PO TID PRN 30 days fluticasone propionate 50 mcg/actuation 1 spray intranasal DAILY 30 days loratadine (Allergy Relief (loratadine)) 10 mg PO DAILY 90 days lorazepam (Ativan) 1 mg PO BEDTIME PRN mirtazapine (Remeron) 15 mg PO BEDTIME naproxen 500 mg PO BID PRN sucralfate (Carafate) 20 mL PO .qhs sumatriptan succinate 25 mg PO Q2-4H PRN 30 days Tobacco use date assessed: 01/30/23 Dental Screening Dental Screen Date: 08/01/23 Did you have a dental visit in the last 12 months?: Yes Did you have a dental problem in the last 6 months where you did not have access to dental care?: No Was dental information given to patient?: Patient has dentist HPI HPI Comments History of Present Illness Details This is a 47-year-old female with GERD, migraines, and allergic rhinitis that complains of diffuse joint pain that has been present for years. GERD stable with Dexilant. Still has some abdominal discomfort and would like a 2nd opinion in [facility]. Migraines happen few times a month and has been stable with sumatriptan as needed. On antihistamines as needed for her allergic rhinitis. Will be referred to rheumatology for her diffuse joint pain. Has low white blood cells but denies any opportunistic infection. CBC will be repeated. [facility] Medical History (Updated 08/01/23 @ 10:26 by Dipti Santacruz MD) Vaginal irritation H/O sigmoidoscopy Left foot pain Lumbar pain Breast mass Breast mass Chronic leukopenia Fatigue Migraines Allergic rhinitis Surgical History History of esophagogastroduodenoscopy (EGD) History of shoulder surgery H/O LEEP History of appendectomy History of tubal ligation Family History Father Diabetes Hypertension Mother Osteoporosis Glaucoma Maternal Uncle Stomach cancer Colon cancer H/O: lung cancer Maternal Grandmother Gallbladder cancer Maternal Aunt Liver cancer Paternal Grandmother Alzheimers disease Maternal Grandfather Glaucoma Heart attack Social History Housing: House Alcohol intake: current Alcohol intake frequency: holidays/special occasions only Alcohol type: wine Patient Tobacco Use Status: Former Tobacco user e-Cigarette/Vaping Use: Never Used Second Hand Smoke Exposure: No service: No Current occupational status: employed Current occupational exposures/hazards: No Cognitive needs: No Hearing needs: No Vision needs: No Female Reproductive History Menstrual Age of Menarche: 15 Questionnaire Thrive Questionnaire Date Thrive assessed: 01/30/23 RIO-7 AMB Questionnaire RIO-7 Date RIO - 7 assessed: 01/30/23 Source: Developed by Drs. Colton Batista, Erika Levin, Александр Srinivasan and colleagues, with an educational alia from [employer]. Review of Systems Const All systems reviewed & are unremarkable except as noted in HPI and below Eyes Reports no additional complaints, Denies change in vision and Denies other visual disturbances Card Denies chest pain at rest, Denies chest pain with activity, Denies edema, Denies irregular heart rhythm, Denies claudication, Denies dyspnea, Denies dyspnea on exertion, Denies orthopnea, Denies paroxysmal nocturnal dyspnea and Denies slow heart rate Resp Denies cough, Denies dyspnea and Denies dyspnea on exertion GI Denies abdominal pain, Denies change in bowel habits, Denies excessive flatus, Denies nausea and Denies vomiting Physical exam (Primary Care) Vital Signs: Last Vital Signs BP 120/70 08/01/23 10:10 BMI result Body Mass Index 27.0 Tobacco/Smoking Status: Tobacco use Status Tobacco use date assessed 01/30/23 08/01/23 10:15 Patient Tobacco Use Status Former Tobacco user 08/01/23 10:15 e-Cigarette/Vaping Use Never Used 08/01/23 10:15 Thrive Assessment: Date of Thrive Assessment Date Thrive assessed 01/30/23 08/01/23 10:15 Eyes General: appearance normal, both eyes and all related structures Eyelids: Yes eyelids normal Conjunctivae: conjunctivae normal Neck Neck: Yes normal visual inspection and Yes supple Resp Effort & Inspection: normal respiratory effort Auscultation: clear to auscultation bilaterally Cardio Jugular venous distension: no JVD Rate: regular rate Rhythm: regular rhythm Heart sounds: S1 normal heart sound present and S2 normal heart sound present Extrem General: Yes full ROM Office Procedures Flu Questionnaire Does the patient have a severe egg allergy?: No Immunizations flu vacc [id number] 6mos up(PF) 60 mcg(15 mcgx4)/0.5 mL IM syringe Performing Provider: Dipti Santacruz MD Performing Location: [facility] Documented (not given) by: NIKOLE Ponce on 08/01/23 10:15 Reason Not Given: Patient Refused Assessment and Plan Assessment & Plan (1) GERD (gastroesophageal reflux disease): Code(s): K21.9 - Gastro-esophageal reflux disease without esophagitis Qualifiers: Esophagitis presence: esophagitis presence not specified Qualified Code(s): K21.9 - Gastro-esophageal reflux disease without esophagitis Plan: Continue Dexilant. (2) Migraines: Code(s): G43.909 - Migraine, unspecified, not intractable, without status migrainosus Qualifiers: Migraine type: unspecified Status migrainosus presence: without status migrainosus Intractability: not intractable Qualified Code(s): G43.909 - Migraine, unspecified, not intractable, without status migrainosus Plan: Continue sumatriptan as needed. (3) Allergic rhinitis: Code(s): J30.9 - Allergic rhinitis, unspecified Plan: Continue antihistamines as needed. (4) Polyarthralgia: Code(s): M25.50 - Pain in unspecified joint Plan: Referred to rheumatology. Orders: Orders Influenza [id number] Immunization Today Z23 - Encounter for immunization Vitamin D 25-OH Total Today E55.9 - Vitamin D deficiency, unspecified CRP High Sensitivity Today M25.50 - Pain in unspecified joint Complete Blood Count Auto Diff Today D72.819 - Decreased white blood cell count, unspecified Comprehensive [place]. Panel Fast Today M25.50 - Pain in unspecified joint Lipid Panel Today E78.5 - Hyperlipidemia, unspecified Vitamin B12 and Folate Today E53.8 - Deficiency of other specified B group vitamins IRON PROFILE Today D64.9 - Anemia, unspecified Erythrocyte Sedimentation Rate Today M25.50 - Pain in unspecified joint Referrals Rheumatology Referral M25.50 - Pain in unspecified joint Gastroenterology Referral E80.6 - Other disorders of bilirubin metabolism, K21.9 - Gastro-esophageal reflux disease without esophagitis, R17 - Unspecified jaundice Medications: New scopolamine base 1 patch transdermal Q3D 7 days PRN 4 ea 0RF nausea and vomiting ondansetron HCl 8 mg PO Q12H 7 days PRN 14 tabs 0RF nausea and vomiting benzonatate 100 mg PO BID 5 days PRN 10 caps 0RF cough azithromycin Take 2 tabs the first day, then 1 tab the next 4 days 250 mg PO DAILY 5 days 6 tabs 0RF Discontinued sucralfate (Carafate) Discontinued Reason: Patient Completed Course 20 mL PO .qhs 1,000 mL 6RF Coding Level of Care Code Est Pt Level 4 (78484) Diagnoses Gastroesophageal reflux disease, unspecified whether esophagitis present K21.9 Esophagitis presence: esophagitis presence not specified Migraine without status migrainosus, not intractable, unspecified migraine type G43.909 Migraine type: unspecified Status migrainosus presence: without status migrainosus Intractability: not intractable Allergic rhinitis J30.9 Polyarthralgia M25.50 Time Spent (min) 23
[2023-08-01 10:10] VITALS: BP 120/70; BMI 27.0
== END 2023-08-01 10:36 | disposition home or self-care (01) ==
PROVIDERS: PCP Internal Medicine; Visit Provider Internal Medicine
DX: K21.9 Gastro-esophageal reflux disease without esophagitis (principal); G43.909 Migraine, unspecified, not intractable, without status migrainosus; J30.9 Allergic rhinitis, unspecified; M25.50 Pain in unspecified joint
CPT/HCPCS: 99214

== ENCOUNTER 2023-08-01 10:46 | Outpatient (REF) | payer OTHER, SELFPAY ==
[2023-08-01 10:59] LABS: MANUAL DIFF FLAG NO
[2023-08-01 11:38] LABS: Basophils Percent Auto 0.9 % (0-2); Eosinophils Absolute Auto 0.1 X10*3/uL (0.0-0.4); Eosinophils Percent Auto 3.4 % (0-4); Hematocrit 38.5 % (37.0-47.0); Hemoglobin 13.3 g/dl (12.0-16.0); Imm Gran Abs Auto 0.01 X10*3/uL (0.00-0.03); Imm Gran Pct Auto 0.3 % (0.0-0.4); Lymphocytes Absolute Auto 1.3 X10*3/uL (1.2-4.9); Lymphocytes Percent Auto 40.9 % (20-40); Mean Corpuscular HGB Conc 34.5 g/dl (31.0-35.0); Mean Corpuscular Hemoglobin 31.4 pg (27.0-33.0); Mean Platelet Volume 9.7 fL (9.4-12.3); Monocytes Absolute Auto 0.3 X10*3/uL (0.1-1.2); Monocytes Percent Auto 7.7 % (2-11); Neutrophils Absolute Auto 1.5 x10*3/uL (2.0-8.3); Neutrophils Percent Auto 46.8 % (45-73); Platelet Count 212 X10*3/uL (160-400); Red Blood Count 4.23 X10*6/uL (4.20-5.50); Red Cell Distribution Width 12.2 % (11.0-16.0); White Blood Count 3.2 X10*3/uL (4.8-10.8)
[2023-08-01 12:12] LABS: Erythrocyte Sedimentation Rate 4 MM/HR (0-20)
[2023-08-01 12:34] LABS: Alanine Aminotransferase 12 U/L (0-31); Albumin Level 4.1 g/dL (3.5-5.0); Alkaline Phosphatase 55 U/L (39-117); Anion Gap 10 (12-20); Aspartate Amino Transferase 16 U/L (5-31); Bilirubin Total 1.4 mg/dL (0.0-1.0); Blood Urea Nitrogen 11 mg/dL (9-16); Calcium 9.4 mg/dL (8.4-10.2); Carbon Dioxide 27 mmol/L (22-29); Chloride 106 mmol/L (96-108); Cholesterol 170 mg/dL (<200); Estimated Glomerular Filt Rate > 60; Glucose Fasting 97 mg/dL (60-99); HDL Cholesterol 85 mg/dL (>40); Iron 124 mcg/dL (30-160); LDL Cholesterol Calculated 76 mg/dL (<100); Percent Iron Saturation 41 % (15-50); Potassium 3.9 mmol/L (3.3-5.1); Sodium 139 mmol/L (135-145); Total Iron Binding Capacity 301 mcg/dL (228-428); Total Protein 6.7 g/dL (6.5-8.0); Triglycerides 47 mg/dL (<150); Unsaturated Iron Binding 177 ug/dL
[2023-08-01 12:37] LABS: Thyroid Stimulating Hormone 1.68 uIU/mL (0.32-4.0); Vitamin D 25-OH Total 24.7 ng/mL (>30)
[2023-08-01 12:50] LABS: Folate 9.5 ng/mL (> or = 4.0)
[2023-08-01 14:17] LABS: Vitamin B12 746 pg/mL (200-900)
[2023-08-02 16:54] LABS: CRP High Sensitivity 0.8 mg/L
== END 2023-08-01 10:47 | disposition home or self-care (01) ==
LOC: HO.LAB 10:46
PROVIDERS: PCP Internal Medicine; Visit Provider Internal Medicine
DX: Z00.00 Encounter for general adult medical examination without abnormal findings (principal); E78.5 Hyperlipidemia, unspecified; R53.83 Other fatigue; D64.9 Anemia, unspecified; D72.819 Decreased white blood cell count, unspecified; M25.50 Pain in unspecified joint; E55.9 Vitamin D deficiency, unspecified; E53.8 Deficiency of other specified B group vitamins
CPT/HCPCS: 36415; 80053; 80061; 82306; 82607; 82746; 83540; 84443; 85025; 85652; 86141

== ENCOUNTER 2023-09-04 13:43 | Outpatient (AMB) | payer OTHER, SELFPAY ==
[2023-09-04 13:48] VITALS: BP 110/70; PULSE 78; TEMP 36.3; O2SAT 98; BMI 27.8
--- NOTE | 2023-09-04 13:48 | A.OFFVIS_ITS ---
Intake Vital Signs 09/04/23 13:48 Height 5 ft 9 in Weight 188 lb 0.869 oz BMI 27.8 BP 110/70 Blood Pressure Location Lt brachial Pulse 78 Pulse Source Pulse Oximeter Temp 97.3 F Temp Source Skin Pulse Oximetry (%) 98 Oxygen Delivery Method Room Air Intake Visit Reasons: Joint Pain Intake Note: New patient, internally referred, presents to office today for joint pain. Joints affected: right shoulder (prior surgery), right elbow, neck, waist, abby knee, abby ankles, back. Reports shrinking sensation. 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 Chandra is a 47-year-old female with referred by her PCP for the evaluation of multiple joint pain. She has a PMH of GERD, Hpylori, migraines, chronic Leukopenia and allergic rhinitis. Ms. Chandra relates that her lower back, knees, elbows and feet hurt. They hurt the most when she walks alot or stands for long periods of time. She has had these pains for years but it is getting worse. She takes Ibuprofen which helps some but due to the GI concerns, she has to take it sparingly. She does have stiffness that last for a few minutes. There is swelling to feet that happens when she is on her feet for a long time but does not remain chronic. Patient denies Raynaud's phenomenon, butterfly rash on face or other rashes; denies photosensitivity - getting sick or developing a rash from being out in the sun; denies blood or froth in urine; patient denies hx of SOB, chest pain. Patient denies hx of Carditis or Pleuritis. Patient denies any history of DVT/PE and does not take aspirin or a blood thinner during the successful pregnancies. Denies fevers, excessive fatigue, unexplained weight-loss or weight-gain Denies: thinning hair or hair loss, hx of rashes Denies: dry, itchy eyes, red burning eyes needing steroids to treat; dry mouth, mouth sores or ulcers; nose bleed; ringing in the ear Denies chronic abdominal pain, blood or mucous in stool; nausea, vomiting and diarrhea , difficulty swallowing. Denies morning stiffness lasting more than 20 mins. [facility] Medical History (Updated 09/04/23 @ 15:43 by REAL Frederick-) Right leg numbness Lumbar back pain with radiculopathy affecting right lower extremity Vaginal irritation H/O sigmoidoscopy Left foot pain Lumbar pain Breast mass Breast mass Chronic leukopenia Fatigue Migraines Allergic rhinitis Surgical History History of esophagogastroduodenoscopy (EGD) History of shoulder surgery H/O LEEP History of appendectomy History of tubal ligation Family History (Updated 09/04/23 @ 13:53 by NIKOLE Landers) Father Diabetes Hypertension Mother Osteoporosis Glaucoma Arthritis Maternal Uncle Stomach cancer Colon cancer H/O: lung cancer Maternal Grandmother Gallbladder cancer Maternal Aunt Liver cancer Paternal Grandmother Alzheimers disease Maternal Grandfather Glaucoma Heart attack Social History (Updated 09/04/23 @ 13:54 by NIKOLE Lnaders) Housing: House Alcohol intake: current Alcohol intake frequency: holidays/special occasions only Alcohol type: wine Patient Tobacco Use Status: Former Tobacco user Quit Date: 2013 e-Cigarette/Vaping Use: Never Used Second Hand Smoke Exposure: No service: No Current occupational status: employed Current occupational exposures/hazards: No Cognitive needs: No Hearing needs: No Vision needs: No Female Reproductive History Menstrual Age of Menarche: 15 Total pregnancies: 3 Review of Systems Const All systems reviewed & are unremarkable except as noted in HPI and below Physical Exam Vital Signs: Last Vital Signs Temp 97.3 F 09/04/23 13:48 Pulse 78 09/04/23 13:48 BP 110/70 09/04/23 13:48 Pulse Ox 98 09/04/23 13:48 Oxygen Delivery Method Room Air 09/04/23 13:48 BMI result Body Mass Index 27.8 APPEARANCE: Patient in no acute distress, groomed, nourished EYES no redness, eyelids normal EARS:? External ear normal, canal clear and tympanic membrane normal. NOSE/SINUS:? Airflow through both nares, no nasal discharge, no bleeding THROAT:? Oral mucosa moist, no ulcerations NECK:? No thyromegaly or masses, no adenopathy, trachea midline. HEART:? Regular rhythm, S1-S2 heard, no murmurs, rubs or gallops. LUNG:? Clear to auscultation, regular rate EXTREMITIES:? No edema, no calf tenderness, normal peripheral pulses. NEURO:? Oriented and alert x3.? No focal weakness.? Reflexes symmetric.? Gait normal. SKIN:? There are no skin lesions evident. No objective signs of Raynaud's phenomenon. JOINT EXAM: Cervical Spine:.? Full range of motion without pain; no tenderness. Thoracic Spine:.? No scoliosis.? No tenderness on palpation. Lumbar Spine:.? Alignment normal.? Full range of motion without pain, Tenderness to lumbosacral areas Chest Wall:.? No tenderness, swelling, increased warmth or erythema. Hands:.? Normal pain-free range of motion without tenderness, swelling, increased warmth or erythema. 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 Wrists:.? Normal pain-free range of motion without tenderness, swelling, increased warmth or erythema. Elbows:. Normal pain-free range of motion without tenderness, swelling, increased warmth or erythema. Shoulders:.?? Full range of motion without pain. No tenderness, weakness, swelling, increased warmth or erythema. Hips:.? Full range of motion without pain. Hip bursa:.? Bilateral mild tenderness. Knees:.?? Normal pain-free range of motion without tenderness, swelling, increased warmth or erythema.? There is no effusion or crepitation Ankles:.? Normal pain-free range of motion without tenderness, swelling, increased warmth or erythema. Feet:.? Normal pain-free range of motion without tenderness, swelling, increased warmth or erythema. Tender points:? No tenderness to digital palpation at the occiput, trapezius, second rib, lateral epicondyle, knees, greater trochanter and gluteal area bilaterally. ? Results Reviewed Results Reviewed: Laboratory Tests 07/23/22 08/01/23 08/01/23 10:59 10:58 10:58 WBC 2.8 L 3.2 L ESR 4 Total Bilirubin 1.4 H AST 16 ALT 12 Alkaline Phosphatase 55 C-React Prot High Sens 0.8 Total Protein 6.7 Albumin 4.1 25-OH Vitamin D Total 24.7 L TSH 1.68 Assessment & Plan Assessment & Plan (1) Polyarthralgia: Code(s): M25.50 - Pain in unspecified joint (2) Lumbar back pain with radiculopathy affecting right lower extremity: Code(s): M54.16 - Radiculopathy, lumbar region (3) Right leg numbness: Code(s): R20.0 - Anesthesia of skin (4) Leukopenia: Code(s): D72.819 - Decreased white blood cell count, unspecified Qualifiers: Leukopenia type: neutropenia Neutropenia type: unspecified Qualified Code(s): D70.9 - Neutropenia, unspecified (5) Hypovitaminosis D: Code(s): E55.9 - Vitamin D deficiency, unspecified Plan #Polylarthralgia/Lumbar Pain/Leg Numbness:Ms. Persaud 47 yoF here for evaluation of Joint pain. After careful initial review of records and history, available diagnostics and physical examination, I do not suspect at this time that there is an underlying CT or inflammatory process for her Joint pains. She may be experiencing the onset of osteoarthritis and or joint pain associated with deconditioning and or aging. Nonetheless, I will obtain labs and imaging for further evaluation. The numbness to her right leg maybe due to sciatica and lumber DDD. She may benefit from EMG study to help ascertain so I have ordered that. I discussed with the patient that joint function also benefits from muscle strengthening and stretching. Sometimes the pain is really the tightness of the muscles and inflexibility of soft structures that support the joints. I encourage stretching and muscle strengthening activities. She can take Tylenol as needed. NSAIDs are contraindicated given that she struggles with GERD and Hpylori. #Hypo Vitamin D: She will continue to take supplements. #Chronic Leukopenia: Patient is unaware that she was referred to Heme/Onc in 11/2020 for evaluation. I encouraged her to follow-up on the referral. I spent 40 minutes reviewing chart and other records, evaluating patient, ordering and documenting Orders: Orders XR knee LT 3V Today M25.50 - Pain in unspecified joint, M54.16 - Radiculopathy, lumbar region XR knee RT 3V Today M25.50 - Pain in unspecified joint, M54.16 - Radiculopathy, lumbar region Anti Extractable Nuclear Ag Today M25.50 - Pain in unspecified joint, M54.16 - Radiculopathy, lumbar region Anti DNA DS Antibody Today M25.50 - Pain in unspecified joint, M54.16 - Radiculopathy, lumbar region Creatine Kinase Total Today M25.50 - Pain in unspecified joint, M54.16 - Radiculopathy, lumbar region Comprehensive Met. Panel Today M25.50 - Pain in unspecified joint, M54.16 - Radiculopathy, lumbar region Erythrocyte Sedimentation Rate Today M25.50 - Pain in unspecified joint, M54.16 - Radiculopathy, lumbar region Uric Acid Today M25.50 - Pain in unspecified joint, M54.16 - Radiculopathy, lumbar region Immunofixation Pnl, Serum Today M25.50 - Pain in unspecified joint, M54.16 - Rad iculopathy, lumbar region Protein Electrophoresis, Serum Today M25.50 - Pain in unspecified joint, M54.16 - Radiculopathy, lumbar region NE electromyogram (EMG) Today R20.0 - Anesthesia of skin MILLI Reflex Titer and Pattern Today M25.50 - Pain in unspecified joint, M54.16 - Radiculopathy, lumbar region C Reactive Protein Today M25.50 - Pain in unspecified joint, M54.16 - Radiculopathy, lumbar region Immunoglobulins,IgG IgA IgM Today M25.50 - Pain in unspecified joint, M54.16 - Radiculopathy, lumbar region Sjogren's Antibodies Today M25.50 - Pain in unspecified joint, M54.16 - Radiculopathy, lumbar region XR lumbar spine 2-3V Today M25.50 - Pain in unspecified joint, M54.16 - Radiculopathy, lumbar region Referrals Rheumatology Referral M25.50 - Pain in unspecified joint, M54.16 - Radiculopathy, lumbar region Coding Level of Care Code New Pt Level 4 (88250) Diagnoses Polyarthralgia M25.50 Lumbar back pain with radiculopathy affecting right lower extremity M54.16 Right leg numbness R20.0 Neutropenia, unspecified type D70.9 Leukopenia type: neutropenia Neutropenia type: unspecified Hypovitaminosis D E55.9
== END 2023-09-04 14:44 | disposition home or self-care (01) ==
PROVIDERS: PCP Internal Medicine; Visit Provider Nurse Practitioner Family
DX: M25.50 Pain in unspecified joint (principal); M54.16 Radiculopathy, lumbar region; R20.0 Anesthesia of skin; D70.9 Neutropenia, unspecified; E55.9 Vitamin D deficiency, unspecified
CPT/HCPCS: 99204

== ENCOUNTER → 2023-09-04 13:43 | Outpatient (BNVA) | payer OTHER, SELFPAY | PROVIDERS: PCP Internal Medicine; Visit Provider Nurse Practitioner Family | DX: M25.50 Pain in unspecified joint (principal); M54.16 Radiculopathy, lumbar region; R20.0 Anesthesia of skin; D70.9 Neutropenia, unspecified; E55.9 Vitamin D deficiency, unspecified | CPT/HCPCS: 99202 ==

== ENCOUNTER 2023-09-19 10:03 | Outpatient (REF) | payer OTHER, SELFPAY ==
--- NOTE | ~2023-09-19 | XR_ITS ---
EXAMINATION: XR KNEE, BILATERAL CLINICAL INFORMATION: Bilateral knee pain COMPARISON: None. TECHNIQUE: 3 views of each knee FINDINGS: No significant joint space narrowing. No fracture or malalignment. No joint effusion of either knee. No suspicious bone lesion or soft tissue calcification. XR/XR lumbar spine 2-3V IMPRESSION: Normal knees.
--- NOTE | ~2023-09-19 | XR_ITS ---
EXAMINATION: XR KNEE, LEFT CLINICAL INFORMATION: Left knee pain COMPARISON: None available. TECHNIQUE: Three views of the left knee. FINDINGS: No fracture or joint effusion. Alignment is anatomic. Joint spaces are maintained. No abnormal soft tissue calcification. XR/XR knee LT 3V IMPRESSION: Normal left knee.
--- NOTE | ~2023-09-19 | XR_ITS ---
EXAMINATION: XR KNEE, BILATERAL CLINICAL INFORMATION: Bilateral knee pain COMPARISON: None. TECHNIQUE: 3 views of each knee FINDINGS: No significant joint space narrowing. No fracture or malalignment. No joint effusion of either knee. No suspicious bone lesion or soft tissue calcification. XR/XR knee RT 3V IMPRESSION: Normal knees.
--- NOTE | 2023-09-19 10:08 | EMG_ITS ---
Right tibial and peroneal motor studies were performed. Right superficial peroneal and sural sensory studies were performed. Tibial H-reflex was obtained, and needle examination was performed. Needle examination was limited as she did not tolerate it well. IMPRESSION: 1. Right mid lumbar radiculopathy. 2. 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 MD HERMELINDA Clifford/PEDRO / [id number]
[2023-09-19 12:20] LABS: Alanine Aminotransferase 10 U/L (0-31); Albumin Level 4.1 g/dL (3.5-5.0); Alkaline Phosphatase 60 U/L (39-117); Anion Gap 9 (12-20); Aspartate Amino Transferase 14 U/L (5-31); Bilirubin Total 1.3 mg/dL (0.0-1.0); Blood Urea Nitrogen 10 mg/dL (9-16); C Reactive Protein < 0.10 mg/dL (< or = 0.50); Carbon Dioxide 25 mmol/L (22-29); Chloride 108 mmol/L (96-108); Estimated Glomerular Filt Rate > 60; Glucose Random 96 mg/dL (60-115); Potassium 4.3 mmol/L (3.3-5.1); Sodium 138 mmol/L (135-145); Total Protein 6.8 g/dL (6.5-8.0); Uric Acid 3.5 mg/dL (2.4-5.7)
[2023-09-19 12:36] LABS: Erythrocyte Sedimentation Rate 5 MM/HR (0-20)
[2023-09-20 12:19] LABS: Prot Elec - Albumin 4.2 g/dL (3.8-4.8); Prot Elec - Alpha1 0.2 g/dL (0.2-0.3); Prot Elec - Alpha2 0.6 g/dL (0.5-0.9); Prot Elec - Beta 1 0.4 g/dL (0.4-0.6); Prot Elec - Beta 2 0.4 g/dL (0.2-0.5); Prot Elec - Gamma 0.9 g/dL (0.8-1.7); Prot Elec - Total Protein 6.7 g/dL (6.1-8.1)
[2023-09-20 13:28] LABS: Anti DNA DS Antibody <1 IU/mL; Antibody to SS-A Antigen <1.0 NEG AI (<1.0 NEG); Antibody to SS-B Antigen <1.0 NEG AI (<1.0 NEG); SM/Ribonucleoprotein Ab <1.0 NEG AI (<1.0 NEG); Smith Protein <1.0 NEG AI (<1.0 NEG)
[2023-09-23 13:12] LABS: IgA 212 mg/dL (47-310); IgG 959 mg/dL (600-1640); IgM 123 mg/dL (50-300)
[2023-09-24 11:18] LABS: Anti Nuclear Antibody Screen NEGATIVE (NEGATIVE)
== END 2023-09-19 10:04 | disposition home or self-care (01) ==
LOC: HO.NEURO 10:03
PROVIDERS: Absent Provider Internal Medicine; PCP Internal Medicine; Visit Provider Nurse Practitioner Family
DX: R20.0 Anesthesia of skin (principal); M25.50 Pain in unspecified joint; M54.16 Radiculopathy, lumbar region
CPT/HCPCS: 36415; 72100; 73562; 80053; 82550; 82784; 84165; 84550; 85652; 86038; 86140; 86225; 86235; 86334; 95886; 95909

== ENCOUNTER 2023-09-20 17:06 | Emergency (ER) | payer OTHER, SELFPAY ==
--- NOTE | ~2023-09-20 | CT_ITS ---
EXAMINATION: CT HEAD WITHOUT CONTRAST CLINICAL INFORMATION: Headaches. COMPARISON: None available. TECHNIQUE: Contiguous axial imaging was performed from the skull base to vertex without intravenous administration of contrast. This CT examination was performed using dose optimization techniques as appropriate, variously including the following: *Automated exposure control *Adjustment of mA and/or kV according to patient size (this includes techniques or standardized protocols for targeted exams where dose is matched to indication/reason for exam; i.e. extremities or head) *Use of iterative reconstruction technique DLP: 639 mGy-cm FINDINGS: The lateral, third and fourth ventricles are normally outlined. The cortical sulci and basal cisterns are normally outlined as well. There is no acute territorial defect, hemorrhage or midline shift. The extra-axial spaces are unremarkable. Calvarium: Intact. Maxillofacial sinuses and mastoids: Clear as visualized. CT/CT head/brain wo IV con IMPRESSION: No acute intracranial pathology.
[2023-09-20 17:15] VITALS: BP 124/80; PULSE 78; RESP 18; TEMP 37; O2SAT 100; BMI 30.4
--- NOTE | 2023-09-20 17:17 | ED_ITS ---
HPI - General Adult General Chief complaint: General Medical Stated complaint: Abnormal labs/Abdominal pain/Blurry vision Time Seen by Provider: 09/20/23 22:38 Source: patient, old records reviewed and [employer] Mode of arrival: ambulatory Limitations: no limitations History of Present Illness HPI narrative: 47 yo female with PMH of polyarthralgia, leukopenia, elevated indirect hyperbilirubinemia, GERD, IBS, fatigue, migraines who just saw PCP had labs which appeared at baseline though she is pending autoimmune labs at this time. She comes in today with c/o worsening fatigue and inermittent abdominal pain but no n/v and notes her stools are creamy. She also notes the last two mornins she has been very tired and she felt dizzy on waking with frontal headaches and felt her vision was blurry it resolved but it scared her. It happened two mornings in a row. MD complaint: multiple complaints Onset (ago): day(s) (3) Location: head Radiation: non-radiation Severity: moderate Quality: aching Pain Consistency: intermittent Relieving factors: rest Exacerbating factors: movement Associated symptoms: malaise and weakness Treatments prior to arrival: none Related Data Home Medications Medication Instructions Recorded Confirmed albuterol sulfate 90 mcg/actuation 0 mcg inhalation Q4H PRN 04/24/22 08/01/23 aerosol inhaler (ProAir HFA) Previous Rx's Medication Instructions Recorded naproxen 500 mg tablet 500 mg PO BID PRN pain #20 tabs 01/04/22 fluticasone propionate 50 1 spray intranasal DAILY 30 days 05/01/22 mcg/actuation nasal #16 grams spray,suspension loratadine 10 mg tablet (Allergy 10 mg PO DAILY 90 days #90 tabs 05/01/22 Relief (loratadine)) dicyclomine 20 mg tablet 20 mg PO TID PRN cramping 30 days 01/30/23 #60 tabs cholecalciferol (vitamin D3) 25 25 mcg PO DAILY 90 days #90 caps 03/28/23 mcg (1,000 unit) capsule sumatriptan succinate 25 mg tablet 25 mg PO Q2-4H PRN migraine 05/20/23 headache 30 days #9 tabs dexlansoprazole 60 mg 60 mg PO DAILY 90 days #90 caps 05/29/23 capsule,biphase delayed release (Dexilant) azithromycin 250 mg tablet 250 mg PO DAILY 5 days #6 tabs 08/01/23 benzonatate 100 mg capsule 100 mg PO BID PRN cough 5 days #10 08/01/23 caps ondansetron HCl 8 mg tablet 8 mg PO Q12H PRN nausea and 08/01/23 vomiting 7 days #14 tabs scopolamine base 1 mg over 3 days 1 patch transdermal Q3D PRN nausea 08/01/23 transdermal patch and vomiting 7 days #4 ea Allergies Allergy/AdvReac Type Severity Reaction Status Date / Time latex [LATEX] Allergy Unknown RASH Verified 09/20/23 17:19 lactose AdvReac Severe Abdominal Verified 09/20/23 17:19 Pain amoxicillin [AMOXICILLIN] AdvReac Unknown VOMITTING Verified 09/20/23 17:19 AND NAUSEA, abdominal pain, N/V and diarrhea Review of Systems 2 Review of Systems: Constitutional : No Fever, No Chills, pos Fatigue ENT/Mouth : No sore throat, No Rhinorrhea Eyes: No Eye Pain, No Swelling, No Redness, pos intermittent blurred vision Cardiovascular : No Chest Pain, No SOB, No Dyspnea on Exertion Respiratory : No Cough, No Sputum Gastrointestinal : No Nausea, No Vomiting, No Diarrhea, No abdominal Pain Genitourinary : No Dysuria, No Urinary Frequency, No Hematuria, Musculoskeletal : No joint pain, No Myalgias, No Joint Swelling Skin : No Skin Lesions, No rash Neuro : No Weakness, No Numbness, pos Dizziness, positive Headache Psych : No Anxiety/Panic, No Depression Heme/Lymph: No Bruising, No Bleeding,No Lymphadenopathy Endocrine : No Polyuria, No Polydipsia All other systems reviewed and are negative [facility] Past Medical History Attestation statement: The following information was validated with the patient. Source: old records reviewed Medical History Right leg numbness Lumbar back pain with radiculopathy affecting right lower extremity Vaginal irritation H/O sigmoidoscopy Left foot pain Lumbar pain Breast mass Breast mass Chronic leukopenia Fatigue Migraines Allergic rhinitis Surgical History History of esophagogastroduodenoscopy (EGD) History of shoulder surgery H/O LEEP History of appendectomy History of tubal ligation Family History Family History (Updated 09/04/23 @ 13:53 by NIKOLE Landers) Father Diabetes Hypertension Mother Osteoporosis Glaucoma Arthritis Maternal Uncle Stomach cancer Colon cancer H/O: lung cancer Maternal Grandmother Gallbladder cancer Maternal Aunt Liver cancer Paternal Grandmother Alzheimers disease Maternal Grandfather Glaucoma Heart attack Social History Social History Housing: House Alcohol intake: current Alcohol intake frequency: holidays/special occasions only Alcohol type: wine Patient Tobacco Use Status: Former Tobacco user Quit Date: 2013 Smoked in Last 30 Days: No e-Cigarette/Vaping Use: Never Used Second Hand Smoke Exposure: No Use of substances other than those prescribed or required for medical reasons: No Advance Directives: No Advance Directives Information Provided: No service: No Current occupational status: employed Current occupational exposures/hazards: No Cognitive needs: No Hearing needs: No Vision needs: No Physical Exam ED Vital Signs: Vital Signs - 24 hr 09/20/23 17:15 09/20/23 21:13 09/20/23 23:36 Temperature 98.6 F 98.4 F 97.9 F Pulse Rate 78 80 65 Respiratory Rate 18 14 16 Blood Pressure 124/80 110/49 L 109/59 L Pulse Oximetry 100 98 98 Oxygen Delivery Method Room Air Room Air Room Air BMI result Body Mass Index 30.4 Appearance: Alert. Oriented X3. No acute distress. Eyes: Pupils equal, round and reactive to light. ENT: Pharynx normal. Neck: Normal inspection. Neck supple. no meningeal signs CVS: Normal heart rate and rhythm. Pulses normal. Respiratory: No respiratory distress. Breath sounds normal. Abdomen: Soft and nontender. has no pain to palpation Skin: Skin warm and dry. Normal skin color. Normal skin turgor. Extremities: No lower extremity edema. No calf ttp Neuro: Oriented X 3. No motor deficit. No sensory deficit. Course Course Course Narrative: RME:?47 yo female hx of migraines, allergic rhinitis, lumbar radiculopathy here for eval of fatigue and abdominal pain that radiates to back x3 days. Associated blurred vision on waking that lasts for approximately 10 minutes. Reports having lab work done by her PCP yesterday for this. she was called this morning with abnormal results however the individual who was speaking to her over the phone did not speak [place] and the patient does not know with results were abnormal. labs, urine ordered. Full HPI, ROS and PE to be performed by the primary ED provider. Medications Administered Generic Name Dose Route Start Last Admin Trade Name Freq PRN Reason Stop Dose Admin Sodium Chloride 1,000 mls @ 999 mls/hr 09/20/23 23:00 09/20/23 23:15 Ns IV 09/21/23 00:00 999 mls/hr .Q1H1M RIDGE Administration Discontinued Medications Generic Name Dose Route Start Last Admin Trade Name Freq PRN Reason Stop Dose Admin Thiamine HCl 200 mg/ Sodium 102 mls @ 204 mls/hr 09/20/23 22:52 09/20/23 23:15 Chloride IV 09/20/23 23:21 204 mls/hr ONCE ONE Administration Medical Decision Making Medical Decision Making [facility] Narrative: 47 yo female with PMH of polyarthralgia, leukopenia, elevated indirect hyperbilirubinemia, GERD, IBS, fatigue, migraines here with c/o fatigue being worked up by PCP she can continue to follow there is no acute findings on labs that require emergent intervention. She also has abdominal pain but no pain to palpation on exam doubt acute pathology. She does have AM headaches so CT head ordered to rule out mass - doubt ICH or stroke. She has no neuro findings. Will also hydrate. Differential Diagnosis Differential Diagnoses: The differential diagnosis associated with the presentation includes chronic fatigue, fibromyalgia, anxiety, intracranial mass Admission/Observation Consideration of admission/observation: Escalation of care including admission/observation considered labs and CT head reassuring chronic issues stable for DC Lab Data [facility] Lab Attestation statement: I reviewed the patient's lab results. 09/20/23 18:32 09/20/23 18:32 Labs: Lab Results 09/20/23 Range/Units 18:32 WBC 3.5 L (4.8-10.8) X10*3/uL RBC 4.14 L (4.20-5.50) X10*6/uL Hgb 13.2 (12.0-16.0) g/dl Hct 37.5 (37.0-47.0) % MCV 90.6 (80.0-98.0) fL MCH 31.9 (27.0-33.0) pg MCHC 35.2 H (31.0-35.0) g/dl RDW 12.4 (11.0-16.0) % Plt Count 216 (160-400) X10*3/uL MPV 9.2 L (9.4-12.3) fL Immature Gran % (Auto) 0.3 (0.0-0.4) % Neut % (Auto) 40.3 L (45-73) % Lymph % (Auto) 48.1 H (20-40) % Peach % (Auto) 7.5 (2-11) % Eos % (Auto) 2.6 (0-4) % Baso % (Auto) 1.2 (0-2) % Lymph # (Auto) 1.7 (1.2-4.9) X10*3/uL Peach # (Auto) 0.3 (0.1-1.2) X10*3/uL Eos # (Auto) 0.1 (0.0-0.4) X10*3/uL Baso # (Auto) 0.0 (0.0-0.2) X10*3/uL Abs Immat Gran (auto) 0.01 (0.00-0.03) X10*3/uL Absolute Neuts (auto) 1.4 L (2.0-8.3) x10*3/uL Absolute Nucleated RBC 0.000 (0.0-0.012) X10*3/uL Nucleated RBC % (auto) 0.0 (0.0-0.2) /100WBC Sodium 137 (135-145) mmol/L Potassium 4.0 (3.3-5.1) mmol/L Chloride 107 (96-108) mmol/L Carbon Dioxide 26 (22-29) mmol/L Anion Gap 8 L (12-20) BUN 10 (9-16) mg/dL Creatinine 1.00 (0.5-1.4) mg/dL Estim Creat Clear Calc 83.6 Estimated GFR 60 Random Glucose 93 (60-115) mg/dL Calcium 9.2 (8.4-10.2) mg/dL Magnesium 2.1 (1.6-2.6) mg/dL Total Bilirubin 1.1 H (0.0-1.0) mg/dL AST 15 (5-31) U/L ALT 11 (0-31) U/L Alkaline Phosphatase 61 (39-117) U/L Total Protein 7.1 (6.5-8.0) g/dL Albumin 4.1 (3.5-5.0) g/dL Lipase 21 (8-78) U/L Urine Color Yellow Urine Appearance Clear Urine pH 5.5 (5.0-9.0) Ur Specific [employer] 1.015 (1.005-1.025) Urine Protein Negative (Neg-Trace) mg/dL Urine Glucose (UA) Negative (Negative) mg/dL Urine Ketones Negative (Negative) mg/dL Urine Blood Negative (Negative) Urine Nitrite Negative (Negative) Ur Leukocyte Esterase Negative (Negative) Urine Test NEGATIVE (NEGATIVE) Independent Interpretation I performed an independent interpretation of an: CT Scan (no mass or ICH) Radiology Impression Discussion of test interpretation with radiology: I have reviewed the radiologist's reading. Independent Historian Clinical information obtained from an independent historian. History obtained from or confirmed by: Spouse External Record Review External record reviewed: Prior outpatient labs Discharge Plan Discharge Clinical Impression: Fatigue Qualifiers: Fatigue type: unspecified Qualified Code(s): R53.83 - Other fatigue Acute tension headache Qualifiers: Intractability: not intractable Qualified Code(s): G44.209 - Tension-type headache, unspecified, not intractable Patient Disposition: Home, Self-Care Instructions: Acute Headache (ED), Fatigue (ED) Additional Instructions: return for worsening symptoms, confusion, numbness / weakness or any other concerns CT scan and labs reassuring no acute findings. please follow up with your doctor. Prescriptions: No Action cholecalciferol (vitamin D3) 25 mcg (1,000 unit) capsule 25 mcg PO DAILY 90 Days Qty: 90 1RF sumatriptan succinate 25 mg tablet 25 mg PO Q2-4H PRN (Reason: migraine headache) 30 Days Qty: 9 6RF Rx Instructions: do not exceed 8 doses per 24 hrs dexlansoprazole [Dexilant] 60 mg capsule,biphase delayed releas 60 mg PO DAILY 90 Days Qty: 90 1RF naproxen 500 mg tablet 500 mg PO BID PRN (Reason: pain) Qty: 20 0RF dicyclomine 20 mg tablet 20 mg PO TID PRN (Reason: cramping) 30 Days Qty: 60 3RF scopolamine base 1 mg over 3 days patch 3 day 1 patch transdermal Q3D PRN (Reason: nausea and vomiting) 7 Days Qty: 4 0RF ondansetron HCl 8 mg tablet 8 mg PO Q12H PRN (Reason: nausea and vomiting) 7 Days Qty: 14 0RF benzonatate 100 mg capsule 100 mg PO BID PRN (Reason: cough) 5 Days Qty: 10 0RF azithromycin 250 mg tablet 250 mg PO DAILY 5 Days Qty: 6 0RF Rx Instructions: Take 2 tabs the first day, then 1 tab the next 4 days fluticasone propionate 50 mcg/actuation spray,suspension 1 spray intranasal DAILY 30 Days Qty: 16 3RF Rx Instructions: administer into each nostril loratadine [Allergy Relief (loratadine)] 10 mg tablet 10 mg PO DAILY 90 Days Qty: 90 3RF albuterol sulfate [ProAir HFA] 90 mcg/actuation HFA aerosol inhaler 0 mcg inhalation Q4H PRN
[2023-09-20 18:38] LABS: Basophils Percent Auto 1.2 % (0-2); Eosinophils Absolute Auto 0.1 X10*3/uL (0.0-0.4); Eosinophils Percent Auto 2.6 % (0-4); Hematocrit 37.5 % (37.0-47.0); Hemoglobin 13.2 g/dl (12.0-16.0); Imm Gran Abs Auto 0.01 X10*3/uL (0.00-0.03); Imm Gran Pct Auto 0.3 % (0.0-0.4); Lymphocytes Absolute Auto 1.7 X10*3/uL (1.2-4.9); Lymphocytes Percent Auto 48.1 % (20-40); MANUAL DIFF FLAG NO; Mean Corpuscular HGB Conc 35.2 g/dl (31.0-35.0); Mean Corpuscular Hemoglobin 31.9 pg (27.0-33.0); Mean Corpuscular Volume 90.6 fL (80.0-98.0); Mean Platelet Volume 9.2 fL (9.4-12.3); Monocytes Absolute Auto 0.3 X10*3/uL (0.1-1.2); Monocytes Percent Auto 7.5 % (2-11); Neutrophils Absolute Auto 1.4 x10*3/uL (2.0-8.3); Neutrophils Percent Auto 40.3 % (45-73); Platelet Count 216 X10*3/uL (160-400); Red Blood Count 4.14 X10*6/uL (4.20-5.50); Red Cell Distribution Width 12.4 % (11.0-16.0); White Blood Count 3.5 X10*3/uL (4.8-10.8)
[2023-09-20 18:46] LABS: Appearance Urine Clear; Color Urine Yellow; Glucose Urine UA Negative (Negative); Leukocyte Esterase Urine Negative (Negative); Nitrite Urine Negative (Negative); PH 5.5 (5.0-9.0); Specific Gravity - Urine 1.015 (1.005-1.025); Urine Blood Negative (Negative); Urine Ketones Negative (Negative); Urine Protein Negative (Neg-Trace)
[2023-09-20 18:47] LABS: UPreg QC Valid YES; Urine Pregnancy NEGATIVE (NEGATIVE)
[2023-09-20 18:52] LABS: Alanine Aminotransferase 11 U/L (0-31); Albumin Level 4.1 g/dL (3.5-5.0); Alkaline Phosphatase 61 U/L (39-117); Anion Gap 8 (12-20); Aspartate Amino Transferase 15 U/L (5-31); Bilirubin Total 1.1 mg/dL (0.0-1.0); Blood Urea Nitrogen 10 mg/dL (9-16); Calcium 9.2 mg/dL (8.4-10.2); Carbon Dioxide 26 mmol/L (22-29); Chloride 107 mmol/L (96-108); Creatinine Clr Calc Pharmacy 83.6; Estimated Glomerular Filt Rate 60; Glucose Random 93 mg/dL (60-115); Lipase 21 U/L (8-78); Magnesium 2.1 mg/dL (1.6-2.6); Sodium 137 mmol/L (135-145); Total Protein 7.1 g/dL (6.5-8.0)
[2023-09-20 21:13] VITALS: BP 110/49; PULSE 80; RESP 14; TEMP 36.9; O2SAT 98
[2023-09-20] MEDS: 0.9 % Sodium Chloride 1,000 ML 999 ML IV (23:15)
[2023-09-20] MEDS: Thiamine HCL 200 MG in 0.9 % Sodium Chloride 100 ML 204 MG IV (23:15)
[2023-09-20 23:36] VITALS: BP 109/59; PULSE 65; RESP 16; TEMP 36.6; O2SAT 98
[2023-09-21] MEDS: Acetaminophen 325 MG TABLET 650 MG PO (00:57)
== END 2023-09-21 01:01 | disposition home or self-care (01) ==
PROVIDERS: Physician Assistant Medical; Emergency Provider Emergency Medicine; PCP Internal Medicine
DX: G44.209 Tension-type headache, unspecified, not intractable (principal); H53.8 Other visual disturbances; R53.81 Other malaise; R53.83 Other fatigue; R42 Dizziness and giddiness; Z79.899 Other long term (current) drug therapy
CPT/HCPCS: 36415; 70450; 80053; 81003; 81025; 83690; 83735; 85025; 96361; 96374; 99284; J3411

== ENCOUNTER 2023-10-01 12:57 | Outpatient (AMB) | payer OTHER, SELFPAY ==
[2023-10-01 13:02] VITALS: BP 112/72; BMI 28.9
--- NOTE | 2023-10-01 13:02 | A.OFFPC_ITS ---
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 [employer] Required: No Accompanied by: Self / Same As Patient Allergies latex [LATEX] Allergy (Unknown, Verified 10/01/23 13:30) RASH lactose Adverse Reaction (Severe, Verified 10/01/23 13:30) Abdominal Pain amoxicillin [AMOXICILLIN] Adverse Reaction (Unknown, Verified 10/01/23 13:30) VOMITTING AND NAUSEA, abdominal pain, N/V and diarrhea Medication List - Last Reconciled 10/01/23 by Dipti Santacruz MD albuterol sulfate 90 mcg/actuation (ProAir HFA) 0 mcg inhalation Q4H PRN cholecalciferol (vitamin D3) 25 mcg PO DAILY 90 days dexlansoprazole (Dexilant) 60 mg PO DAILY 90 days fluticasone propionate 50 mcg/actuation 1 spray intranasal DAILY 30 days loratadine (Allergy Relief (loratadine)) 10 mg PO DAILY 90 days ondansetron HCl 8 mg PO Q12H PRN 7 days sumatriptan succinate 25 mg PO Q2-4H PRN 30 days Tobacco use date assessed: 10/01/23 Dental Screening Dental Screen Date: 10/01/23 Did you have a dental visit in the last 12 months?: Yes Did you have a dental problem in the last 6 months where you did not have access to dental care?: No Was dental information given to patient?: Patient has dentist HPI HPI Comments History of Present Illness Details This is a 47-year-old female with leukopenia, GERD and migraines that comes today as hospital discharge follow-up with discharge date 09/20/2023 due to headache, dizziness, fatigue and abdominal pain that started 2 days before. No nausea or vomiting. Some blurry vision. Head CT was done at ER and was negative. Labs were done showing leukopenia and she would like to see Hematology-Oncology for that matter. GERD has been stable with medications. Migraines happen few times a month and is stable with sumatriptan. She also has a left breast mass that is tender and she noticed recently. No nipple retraction or discharge. Last mammogram was January 2023. She does have abnormal menses that started few months ago and would like to see OBGYN. [facility] Medical History (Updated 10/01/23 @ 19:06 by Dipti Santacruz MD) Right leg numbness Lumbar back pain with radiculopathy affecting right lower extremity Vaginal irritation H/O sigmoidoscopy Left foot pain Lumbar pain Breast mass Breast mass Chronic leukopenia Fatigue Migraines Allergic rhinitis Surgical History History of esophagogastroduodenoscopy (EGD) History of shoulder surgery H/O LEEP History of appendectomy History of tubal ligation Family History Father Diabetes Hypertension Mother Osteoporosis Glaucoma Arthritis Maternal Uncle Stomach cancer Colon cancer H/O: lung cancer Maternal Grandmother Gallbladder cancer Maternal Aunt Liver cancer Paternal Grandmother Alzheimers disease Maternal Grandfather Glaucoma Heart attack Social History Housing: House Alcohol intake: current Alcohol intake frequency: holidays/special occasions only Alcohol type: wine Patient Tobacco Use Status: Former Tobacco user Quit Date: 2013 e-Cigarette/Vaping Use: Never Used Second Hand Smoke Exposure: No service: No Current occupational status: employed Current occupational exposures/hazards: No Cognitive needs: No Hearing needs: No Vision needs: No Female Reproductive History Menstrual Age of Menarche: 15 Questionnaire Thrive Questionnaire Date Thrive assessed: 01/30/23 RIO-7 AMB Questionnaire RIO-7 Date RIO - 7 assessed: 01/30/23 Source: Developed by Drs. Colton Batista, Erika Levin, Александр Srinivasan and colleagues, with an educational alia from [employer]. Review of Systems Const All systems reviewed & are unremarkable except as noted in HPI and below Eyes Reports no additional complaints, Denies change in vision and Denies other visual disturbances Card Denies chest pain at rest, Denies chest pain with activity, Denies edema, Denies irregular heart rhythm, Denies claudication, Denies dyspnea, Denies dyspnea on exertion, Denies orthopnea, Denies paroxysmal nocturnal dyspnea and Denies slow heart rate Resp Denies cough, Denies dyspnea and Denies dyspnea on exertion Physical exam (Primary Care) Vital Signs: Last Vital Signs BP 112/72 10/01/23 13:02 BMI result Body Mass Index 28.9 Tobacco/Smoking Status: Tobacco use Status Tobacco use date assessed 10/01/23 10/01/23 13:11 Patient Tobacco Use Status Former Tobacco user 10/01/23 13:11 e-Cigarette/Vaping Use Never Used 10/01/23 13:11 Thrive Assessment: Date of Thrive Assessment Date Thrive assessed 01/30/23 10/01/23 13:11 Eyes General: appearance normal, both eyes and all related structures Eyelids: Yes eyelids normal Conjunctivae: conjunctivae normal Neck Neck: Yes normal visual inspection and Yes supple Chest Breast/axilla palpation: abnormal palpation of the breast (Left breast mass at 12:00 o'clock) Resp Effort & Inspection: normal respiratory effort Auscultation: clear to auscultation bilaterally Cardio Jugular venous distension: no JVD Rate: regular rate Rhythm: regular rhythm Heart sounds: S1 normal heart sound present and S2 normal heart sound present Extrem General: Yes full ROM Assessment and Plan Assessment & Plan (1) Left breast mass: Comment: At 12 o'clock Code(s): N63.20 - Unspecified lump in the left breast, unspecified quadrant Qualifiers: Breast mass location: upper inner quadrant Qualified Code(s): N63.22 - Unspecified lump in the left breast, upper inner quadrant Plan: Ultrasound of left breast order and mammogram diagnostic bilateral ordered. (2) Hospital discharge follow-up: Code(s): Z09 - Encounter for follow-up examination after completed treatment for conditions other than malignant neoplasm Plan: Discharge date 09/20/2023 due to headache associated with dizziness and fatigue. Head CT was done and was negative. Labs did not show any acute significant abnormality. Headache resolved. Still feels fatigued and dizzy occasionally. (3) Leukopenia: Code(s): D72.819 - Decreased white blood cell count, unspecified Qualifiers: Leukopenia type: neutropenia Neutropenia type: unspecified Qualified Code(s): D70.9 - Neutropenia, unspecified Plan: Referred to Hematology-Oncology. (4) GERD (gastroesophageal reflux disease): Code(s): K21.9 - Gastro-esophageal reflux disease without esophagitis Qualifiers: Esophagitis presence: esophagitis presence not specified Qualified Code(s): K21.9 - Gastro-esophageal reflux disease without esophagitis Plan: Stable with PPIs. (5) Migraines: Code(s): G43.909 - Migraine, unspecified, not intractable, without status migrainosus Qualifiers: Migraine type: unspecified Status migrainosus presence: without status migrainosus Intractability: not intractable Qualified Code(s): G43.909 - Migraine, unspecified, not intractable, without status migrainosus Plan: Continue sumatriptan as needed. Orders: Orders Vitamin D 25-OH Total Today E55.9 - Vitamin D deficiency, unspecified Vitamin B12 and Folate Today E53.8 - Deficiency of other specified B group vitamins Thyroid Stimulating Hormone Today R53.83 - Other fatigue MM diagnostic mammo BI Today N63.20 - Unspecified lump in the left breast, unspecified quadrant US breast LT complete Today N63.20 - Unspecified lump in the left breast, unspecified quadrant Referrals Hematology & Oncology Referral D72.819 - Decreased white blood cell count, unspecified [employer] Referral N92.6 - Irregular menstruation, unspecified Medications: Refilled fluticasone propionate 50 mcg/actuation administer into each nostril 1 spray intranasal DAILY 30 days 16 grams 3RF Coding Level of Care Code TCM Mod MDM <= 14 Days Diagnoses Mass of upper inner quadrant of left breast N63.22 Breast mass location: upper inner quadrant Hospital discharge follow-up Z09 Neutropenia, unspecified type D70.9 Leukopenia type: neutropenia Neutropenia type: unspecified Gastroesophageal reflux disease, unspecified whether esophagitis present K21.9 Esophagitis presence: esophagitis presence not specified Migraine without status migrainosus, not intractable, unspecified migraine type G43.909 Migraine type: unspecified Status migrainosus presence: without status migrainosus Intractability: not intractable Time Spent (min) 24
== END 2023-10-01 13:46 | disposition home or self-care (01) ==
PROVIDERS: PCP Internal Medicine; Visit Provider Internal Medicine
DX: N63.22 Unspecified lump in the left breast, upper inner quadrant (principal); D70.9 Neutropenia, unspecified; K21.9 Gastro-esophageal reflux disease without esophagitis; E55.9 Vitamin D deficiency, unspecified
CPT/HCPCS: 99214

== ENCOUNTER 2023-10-01 13:54 | Outpatient (REF) | payer OTHER, SELFPAY ==
[2023-10-01 14:03] LABS: MANUAL DIFF FLAG NO
[2023-10-01 14:10] LABS: Basophils Percent Auto 1.1 % (0-2); Eosinophils Absolute Auto 0.1 X10*3/uL (0.0-0.4); Hematocrit 37.7 % (37.0-47.0); Hemoglobin 13.3 g/dl (12.0-16.0); Lymphocytes Absolute Auto 1.7 X10*3/uL (1.2-4.9); Lymphocytes Percent Auto 47.3 % (20-40); Mean Corpuscular HGB Conc 35.3 g/dl (31.0-35.0); Mean Corpuscular Hemoglobin 31.4 pg (27.0-33.0); Mean Corpuscular Volume 88.9 fL (80.0-98.0); Mean Platelet Volume 9.3 fL (9.4-12.3); Monocytes Absolute Auto 0.3 X10*3/uL (0.1-1.2); Monocytes Percent Auto 7.4 % (2-11); Neutrophils Absolute Auto 1.4 x10*3/uL (2.0-8.3); Neutrophils Percent Auto 40.2 % (45-73); Platelet Count 231 X10*3/uL (160-400); Red Blood Count 4.24 X10*6/uL (4.20-5.50); Red Cell Distribution Width 12.3 % (11.0-16.0); White Blood Count 3.5 X10*3/uL (4.8-10.8)
[2023-10-01 15:17] LABS: Thyroid Stimulating Hormone 1.91 uIU/mL (0.32-4.0); Vitamin D 25-OH Total 25.2 ng/mL (>30)
[2023-10-01 17:03] LABS: Folate 12.4 ng/mL (> or = 4.0)
[2023-10-02 14:51] LABS: Vitamin B12 779 pg/mL (200-900)
== END 2023-10-01 13:55 | disposition home or self-care (01) ==
LOC: HO.LAB 13:54
PROVIDERS: PCP Internal Medicine; Visit Provider Internal Medicine
DX: E55.9 Vitamin D deficiency, unspecified (principal); D72.819 Decreased white blood cell count, unspecified; R53.83 Other fatigue; E53.8 Deficiency of other specified B group vitamins
CPT/HCPCS: 36415; 82306; 82607; 82746; 84443; 85025

== ENCOUNTER → 2023-10-29 14:00 | Outpatient (BNV) | payer OTHER, SELFPAY | PROVIDERS: PCP Internal Medicine; Visit Provider Radiology Diagnostic Radiology | DX: R92.343 Mammographic extreme density, bilateral breasts (principal) | CPT/HCPCS: 76642; 77062; 77066 ==

== ENCOUNTER 2023-10-29 14:40 | Outpatient (REF) | payer OTHER, SELFPAY ==
--- NOTE | ~2023-10-29 | MM_ITS ---
EXAMINATION: MM DIAGNOSTIC DIGITAL BREAST TOMOSYNTHESIS, BILATERAL US BREAST LIMITED, BILATERAL MAMMOGRAPHY: CLINICAL INFORMATION: 47-year-old female complaining of palpable lump left inner upper breast since August, linear in shape . Also complaining of right lump lateral right breast 4 years with pain on and off . COMPARISON: Mammography: 01/31/2023, 01/17/2022, 12/09/2020, and dating back to 2014. TECHNIQUE: Digital breast tomosynthesis is performed in both the craniocaudal and mediolateral oblique views along with computer-aided detection (CAD). Synthesized 2D images are generated from the tomosynthesis. In addition, full-field bilateral 90 degree 3-D mediolateral views were obtained, as well as bilateral 3-D spot compression CC and MLO views. FINDINGS: The breasts are extremely dense, which lowers the sensitivity of mammography (ACR BI-RADS breast composition Category d). There are areas of palpable concern at the marked with the markers by the technologist. No definite underlying mass, architectural distortion, or suspicious calcifications identified near or at the BB markers, nor elsewhere within either breast within the confines of extremely dense parenchyma. The overall parenchymal pattern is unchanged from prior exams. There is no skin or axillary abnormality. ULTRASOUND: CLINICAL INFORMATION: 47-year-old female complaining of palpable lump left inner upper breast since August, linear in shape. Also complaining of right lump lateral right breast 4 years with pain on and off . COMPARISON: Right breast ultrasound 12/09/2020, bilateral breast ultrasound 07/08/2015. TECHNIQUE: Targeted sonographic evaluation was performed using a high frequency linear transducer. The right breast was scanned in the upper outer quadrant, and the left breast was scanned in the upper inner quadrant, both to include the palpable foci. Selected archived documentation. FINDINGS: RIGHT BREAST: There is extremely dense fibroglandular tissue. No suspicious mass is seen. There is no pathologic acoustic shadowing. There is no cystic abnormality. LEFT BREAST: There is extremely dense fibroglandular tissue.. No suspicious mass is seen. There is no pathologic acoustic shadowing. There is no cystic abnormality. There are no sonographic correlates to the bilateral palpable foci. MM/MM tomosynthesis diagnostic BI IMPRESSION: -No findings suspicious for malignancy in either breast. -Extremely dense breast parenchyma, limits evaluation somewhat. -No mammographic or ultrasonographic correlates to the bilateral palpable foci. Recommend clinical management. OVERALL ASSESSMENT: Mammography: BI-RADS 2 - Benign Findings Ultrasound: BI-RADS 2 - Benign Findings RECOMMENDATION: 1. Patient should be managed based on the clinical impression. 2. Otherwise, routine annual screening mammography. Results were provided to the patient at time of visit by the technologist. This patient's information was entered into a reminder system with a target due date for their next mammogram.
== END 2023-10-29 14:41 | disposition home or self-care (01) ==
LOC: HO.MAMMO 14:40
PROVIDERS: PCP Internal Medicine; Visit Provider Internal Medicine
DX: N63.15 Unspecified lump in the right breast, overlapping quadrants (principal)
CPT/HCPCS: 76642; 77062; 77066

== ENCOUNTER 2023-11-14 10:52 | Outpatient (REF) | payer OTHER, SELFPAY ==
[2023-11-14 17:11] LABS: CT PCR NOT DETECTED (Not Detect.); NG PCR NOT DETECTED (Not Detect.)
[2023-11-15 13:09] LABS: BV Int Neg Control Negative (Negative); BV Int Pos Control Positive (Positive)
== END 2023-11-14 10:53 | disposition home or self-care (01) ==
LOC: HO.LAB 10:52
PROVIDERS: PCP Internal Medicine; Visit Provider Advanced Practice Midwife
DX: N89.8 Other specified noninflammatory disorders of vagina (principal); N92.6 Irregular menstruation, unspecified
CPT/HCPCS: 0353U; 81025; 87480; 87510; 87660; 99212

== ENCOUNTER 2023-11-14 10:52 | Outpatient (AMB) | payer OTHER, SELFPAY ==
--- NOTE | 2023-11-14 10:53 | A.OFFVIS_ITS ---
Intake Vital Signs 11/14/23 10:57 Height 5 ft 8 in Weight 185 lb BMI 28.1 BP 100/60 Intake Visit Reasons: irregular menses/Referral/30 mins Avionics Integration Engineer Required: Yes Avionics Integration Engineer Language: Electric Clock Mechanic Name: Santana [id number] Information Interpreted: non-clinical & clinical Director Hematology: Director Hematology Present (Maryan) Allergies latex [LATEX] Allergy (Unknown, Verified 11/14/23 11:03) RASH lactose Adverse Reaction (Severe, Verified 11/14/23 11:03) Abdominal Pain amoxicillin [AMOXICILLIN] Adverse Reaction (Unknown, Verified 11/14/23 11:03) VOMITTING AND NAUSEA, abdominal pain, N/V and diarrhea Is last menstrual period known: Yes Last menstrual period: 10/21/23 HPI HPI Comments History of Present Illness Details Patient is here today with closely bleeding pattern, 15days apart, heavy at times, some pelvic pain radiating to the back on her right side. History of ovarian cysts. History of TL, denies any symptoms of . Admits to vaginal itching today. [facility] Medical History Right leg numbness Lumbar back pain with radiculopathy affecting right lower extremity Vaginal irritation H/O sigmoidoscopy Left foot pain Lumbar pain Breast mass Breast mass Chronic leukopenia Fatigue Migraines Allergic rhinitis Surgical History History of esophagogastroduodenoscopy (EGD) History of shoulder surgery H/O LEEP History of appendectomy History of tubal ligation Family History Father Diabetes Hypertension Mother Osteoporosis Glaucoma Arthritis Maternal Uncle Stomach cancer Colon cancer H/O: lung cancer Maternal Grandmother Gallbladder cancer Maternal Aunt Liver cancer Paternal Grandmother Alzheimers disease Maternal Grandfather Glaucoma Heart attack Social History Housing: House Alcohol intake: current Alcohol intake frequency: holidays/special occasions only Alcohol type: wine Patient Tobacco Use Status: Former Tobacco user Quit Date: 2013 e-Cigarette/Vaping Use: Never Used Second Hand Smoke Exposure: No service: No Current occupational status: employed Current occupational exposures/hazards: No Cognitive needs: No Hearing needs: No Vision needs: No Female Reproductive History Menstrual Age of Menarche: 15 Duration of menses: 3-5 days Date of last menstrual period: 10/21/23 Total pregnancies: 3 Full term: 3 Number of Living Children: 3 Date of last pap smear: 08/24/15 (neg pap and hpv) History of abnormal pap smear: Yes (11/13 asc-h 01/13 leep kalyan 1-2) Review of Systems Const All systems reviewed & are unremarkable except as noted in HPI and below Physical Exam Vital Signs: Last Vital Signs BP 100/60 11/14/23 10:57 BMI result Body Mass Index 28.1 Const General: cooperative, healthy appearing and no acute distress Orientation/consciousness: patient oriented x3 GI Inspection: Yes normal to inspection Palpation (GI): Soft to palpation and Other GI palpation findings present (Nontender) Rectal Exam - Female: visual inspection normal General: Yes bladder normal to palpation External Female Exam: normal appearance of the urethra Speculum Exam - Vagina: normal appearance of the vagina, normal palpation and normal vaginal discharge Speculum Exam - Cervix: normal appearance of the cervix and normal palpation Bimanual exam- vagina & uterus: normal bimanual exam, normal palpation, uterine size normal, bladder normal to palpation, normal palpation, uterine shape normal and non-tender Bimanual Exam- Adnexa, other: normal adnexae Neuro General: patient oriented x3 Results AMB Test Urine AMB Test Urine Negative Last Edit by NIKOLE Chávez on 11/14/23 11:10 Results Reviewed Results Reviewed: Laboratory Last Values Tst Clinic Negative 11/14/23 11:09 Assessment & Plan Assessment & Plan (1) Abnormal uterine bleeding (AUB): Code(s): N93.9 - Abnormal uterine and vaginal bleeding, unspecified (2) Vaginal itching: Code(s): N89.8 - Other specified noninflammatory disorders of vagina Plan Discussed: Plan ultrasound and follow up appointment for EMB at next visit. Observe for bleeding pattern if any heavy prolonged bleeding to call office or report to ED for immediate care. Await BV panel for results and plan. All of her questions and concerns were addressed to the best of my ability and shared decision making. She is agreeable to the plan of care. This note is constructed using voice recognition software. While every effort has been made to ensure accuracy, construction equipment mechanic helper errors may have been included. Orders: Orders AMB HCG Urine Test Today N92.6 - Irregular menstruation, unspecified US pelvic and transvaginal Today N93.9 - Abnormal uterine and vaginal bleeding, unspecified Bacterial Vaginosis Panel Today N89.8 - Other specified noninflammatory disorders of vagina, N92.6 - Irregular menstruation, unspecified CT NG by PCR Today N89.8 - Other specified noninflammatory disorders of vagina, N92.6 - Irregular menstruation, unspecified Medications: New fluconazole Patient to NOT take ZOFRAN while using this meds, please lable 150 mg PO ONCE 1 day 1 tab 0RF personal Coding Level of Care Code Est Pt Level 4 (11477) Diagnoses Abnormal uterine bleeding (AUB) N93.9 Vaginal itching N89.8
[2023-11-14 10:57] VITALS: BP 100/60; BMI 28.1
== END 2023-11-14 16:12 | disposition home or self-care (01) ==
LOC: HO.HWS 10:52
PROVIDERS: PCP Internal Medicine; Visit Provider Advanced Practice Midwife
DX: N93.9 Abnormal uterine and vaginal bleeding, unspecified (principal); N89.8 Other specified noninflammatory disorders of vagina; N92.6 Irregular menstruation, unspecified
CPT/HCPCS: 99214

== ENCOUNTER 2023-11-14 11:24 | Outpatient (REF) | payer OTHER, SELFPAY | END 2023-11-14 11:25 | disposition home or self-care (01) | LOC: HO.LNP 11:24 | PROVIDERS: Visit Provider Advanced Practice Midwife | DX: Z13.89 Encounter for screening for other disorder (principal) ==

== ENCOUNTER 2023-12-10 15:35 | Outpatient (REF) | payer OTHER, SELFPAY ==
--- NOTE | ~2023-12-10 | US_ITS ---
EXAMINATION: US PELVIS CLINICAL INFORMATION: Abnormal uterine and vaginal bleeding; the last menstrual period was on 11/21/2023. COMPARISON: None available. TECHNIQUE: Ultrasound of the pelvis is performed using both transabdominal and transvaginal transducers along with Doppler. Transvaginal imaging is performed due to inadequate visualization transabdominally. FINDINGS: Uterus: The uterus is retroverted and retroflexed. The uterus measures 9.1 x 4.9 x 4.7 cm. Nabothian cysts are seen within the cervix The double wall endometrial thickness is 15 mm. The uterus is smooth in contour and has normal myometrial echogenicity. No visible fibroid. Adnexa: Both ovaries are visualized. There is normal color flow to the adnexa. There is no ovarian torsion. There is a small amount of free fluid within the cul-de-sac. Right ovary measures 3.7 x 1.8 x 1.9 cm, volume 6.6 mL. A 1.7 x 1.3 x 1.4 cm benign corpus luteum cyst is seen, which requires no imaging follow-up. Left ovary measures 2.6 x 0.9 x 1.5 cm, volume 6.1 mL. US/US pelvic and transvaginal IMPRESSION: 1. A small amount of free fluid is seen within the cul-de-sac. 2. Nabothian cysts are seen within the cervix.
== END 2023-12-10 15:36 | disposition home or self-care (01) ==
LOC: HO.US 15:35
PROVIDERS: PCP Internal Medicine; Visit Provider Advanced Practice Midwife
DX: N93.9 Abnormal uterine and vaginal bleeding, unspecified (principal)
CPT/HCPCS: 76830; 76856

== ENCOUNTER → 2024-01-01 13:35 | Outpatient (BNVA) | payer SELFPAY | PROVIDERS: PCP Internal Medicine; Visit Provider Physician Assistant | DX: Z02.79 Encounter for issue of other medical certificate (principal) ==

== ENCOUNTER → 2024-01-06 13:40 | Outpatient (BNV) | payer OTHER, SELFPAY | PROVIDERS: PCP Internal Medicine; Referring Provider Internal Medicine; Visit Provider Internal Medicine Medical Oncology | DX: D72.819 Decreased white blood cell count, unspecified (principal) | CPT/HCPCS: 99204 ==

== ENCOUNTER 2024-02-10 14:16 | Outpatient (AMB) | payer OTHER, SELFPAY ==
--- NOTE | 2024-02-10 14:24 | A.OFFPC_ITS ---
Vital Signs 02/10/24 14:25 Height 5 ft 9 in Weight 187 lb 0.6 oz BMI 27.6 BP 102/70 Blood Pressure Location Lt brachial Position Sitting Pulse 70 Pulse Source Pulse Oximeter Pulse Oximetry (%) 97 Oxygen Delivery Method Room Air Intake Visit Reasons: pe Intake Note: Patient is here today for a physical. Sprinkling Truck Driver Required: No Accompanied by: Self / Same As Patient Allergies latex [LATEX] Allergy (Unknown, Verified 02/10/24 14:49) RASH lactose Adverse Reaction (Severe, Verified 02/10/24 14:49) Abdominal Pain amoxicillin [AMOXICILLIN] Adverse Reaction (Unknown, Verified 02/10/24 14:49) VOMITTING AND NAUSEA, abdominal pain, N/V and diarrhea Medication List - Last Reconciled 02/10/24 by Dipti Santacruz MD albuterol sulfate 90 mcg/actuation (ProAir HFA) 0 mcg inhalation Q4H PRN cholecalciferol (vitamin D3) 25 mcg PO DAILY 90 days dexlansoprazole (Dexilant) 60 mg PO DAILY 90 days fluticasone propionate 50 mcg/actuation 1 spray intranasal DAILY 30 days loratadine (Allergy Relief (loratadine)) 10 mg PO DAILY 90 days sumatriptan succinate 25 mg PO Q2-4H PRN 30 days Tobacco use date assessed: 10/01/23 Dental Screening Dental Screen Date: 10/01/23 Did you have a dental visit in the last 12 months?: Yes Did you have a dental problem in the last 6 months where you did not have access to dental care?: No Was dental information given to patient?: Patient has dentist HPI HPI Comments History of Present Illness Details This is a 48-year-old female that comes for her physical exam. Mammogram done 2023 was normal. As per patient Pap smears are up-to-date. Last colonoscopy was 2013 and she follows with [facility] which will call her for another colonoscopy. She complains of some sore throat and wheezing with shortness of breaths that started yesterday. No fever or sick contacts. She also has blurry vision and would like to see Ophthalmology. [facility] Medical History (Updated 02/10/24 @ 20:27 by Dipti Santacruz MD) Right leg numbness Lumbar back pain with radiculopathy affecting right lower extremity Vaginal irritation H/O sigmoidoscopy Left foot pain Lumbar pain Breast mass Breast mass Chronic leukopenia Fatigue Migraines Allergic rhinitis Surgical History (Updated 02/10/24 @ 14:54 by Dipti Santacruz MD) History of tonsillectomy and adenoidectomy History of esophagogastroduodenoscopy (EGD) History of shoulder surgery H/O LEEP History of appendectomy History of tubal ligation Family History Father Diabetes Hypertension Mother Osteoporosis Arthritis Glaucoma Maternal Uncle Stomach cancer Colon cancer H/O: lung cancer Maternal Grandmother Gallbladder cancer Maternal Aunt Liver cancer Paternal Grandmother Alzheimers disease Maternal Grandfather Heart attack Glaucoma Maternal Uncle Colon cancer Social History Housing: House Alcohol intake: current Alcohol intake frequency: holidays/special occasions only Alcohol type: wine Patient Tobacco Use Status: Former Tobacco user e-Cigarette/Vaping Use: Never Used Second Hand Smoke Exposure: No service: No Current occupational status: employed Current occupational exposures/hazards: No Cognitive needs: No Hearing needs: No Vision needs: No Female Reproductive History Menstrual Age of Menarche: 15 Questionnaire PHQ-9 Over the last 2 weeks, how often have you been bothered by any of the following problems? 1. Little interest or pleasure in doing things: not at all 2. Feeling down, depressed, or hopeless: not at all 3. Trouble falling or staying asleep, or sleeping too much: not at all 4. Feeling tired or having little energy: not at all 5. Poor appetite or overeating: not at all 6. Feeling bad about yourself - or that you are a failure or have let yourself or your family down: not at all 7. Trouble concentrating on things, such as reading the newspaper or watching television: not at all 8. Moving or speaking so slowly that other people could have noticed. Or the opposite - being so fidgety or restless that you have been moving around a lot more than usual: not at all 9. Thoughts that you would be better off or of hurting yourself in some way: not at all Total score: 0 Depression Screening Interpretation: Negative Depression Screening Done: Yes 67846 - PHQ-9 Billing: Yes Source: Developed by Drs. Colton Batista, Erika Levin, Александр Srinivasan and colleagues, with an educational alia from [employer]. Thrive Questionnaire Date Thrive assessed: 02/10/24 I am a: Patient What is your living situation today?: I have a steady place to live Within the past 12 months, did the food you bought not last and you didn't have the money to get more?: Never true Within the past 12 months, did you worry whether your food would run out before you got money to buy more?: Never true Do you have trouble paying for medicines?: No Do you have trouble getting transportation to medical appointments?: No Do you have trouble paying your heating and electricity bill?: No Do you have trouble taking care of your child, family member or friend?: No Do you have trouble with day-to-day activities such as bathing, preparing meals, shopping, managing finances, etc.?: No Are you currently unemployed and looking for a job?: No Are you interested in more education?: No Please select the resources that you would like help with: None Currently or been in a relationship where the following occur: No concerns reported THRIVE Score: 0 AUDIT C Alcohol Use Questionnaire (AUDIT-C) 1. How often do you have a drink containing alcohol?: Never 3. How often do you have six or more drinks on one occasion?: Never Total Score: 0 Score Reviewed/Action Taken: No RIO-7 AMB Questionnaire RIO-7 Date RIO - 7 assessed: 02/10/24 Feeling nervous, anxious, or on edge: 0 = Not at all Not being able to stop or control worryin = Not at all Worrying too much about different things: 0 = Not at all Trouble relaxin = Not at all Being so restless that it is hard to sit still: 0 = Not at all Becoming easily annoyed or irritable: 0 = Not at all Feeling afraid as if something awful might happen: 0 = Not at all Total RIO-7 score (0-4 normal; 5-9 mild; 10-14 moderate; 15-21 severe): 0 Source: Developed by Drs. Colton Batista, Александр Adan and colleagues, with an educational alia from [employer]. RIO-7 Assessment Billing RIO-7 Assessment Tool: RIO-7 Assessment 09677 Review of Systems Const All systems reviewed & are unremarkable except as noted in HPI and below ENT Denies change in voice, Denies nasal discharge and Denies sinus pain Card Denies chest pain at rest, Denies chest pain with activity, Denies edema, Denies irregular heart rhythm, Denies claudication, Denies dyspnea, Denies dyspnea on exertion, Denies orthopnea, Denies paroxysmal nocturnal dyspnea and Denies slow heart rate Resp Denies cough, Denies dyspnea and Denies dyspnea on exertion Musc Denies abnormal gait, Denies atrophy and Denies deformity Neuro Denies abnormal gait and Denies lack of coordination Physical exam (Primary Care) Vital Signs: Last Vital Signs Pulse 70 02/10/24 14:25 BP 102/70 02/10/24 14:25 Pulse Ox 97 02/10/24 14:25 Oxygen Delivery Method Room Air 02/10/24 14:25 BMI result Body Mass Index 27.6 Tobacco/Smoking Status: Tobacco use Status Tobacco use date assessed 10/01/23 02/10/24 14:26 Patient Tobacco Use Status Former Tobacco user 02/10/24 14:26 e-Cigarette/Vaping Use Never Used 02/10/24 14:26 PHQ-9: PHQ-9 Score PHQ-9: Total score 0 02/10/24 14:57 Depression Screening Interpretation: Negative Thrive Assessment: Date of Thrive Assessment Date Thrive assessed 02/10/24 02/10/24 14:31 Currently or been in a relationship where the following occur: No concerns reported Const Orientation/consciousness: patient oriented x3 [facility] Head: Yes normal to inspection, Yes normocephalic and Yes atraumatic Ears: external ears normal Eyes General: appearance normal, both eyes and all related structures Eyelids: Yes eyelids normal Conjunctivae: conjunctivae normal Neck Neck: Yes normal visual inspection and Yes supple Resp Effort & Inspection: normal respiratory effort Auscultation: clear to auscultation bilaterally Cardio Jugular venous distension: no JVD Rate: regular rate Rhythm: regular rhythm Heart sounds: S1 normal heart sound present and S2 normal heart sound present GI Inspection: Yes normal to inspection Palpation (GI): Soft to palpation and nontender Auscultation: normal bowel sounds Skin General skin exam: no rashes or lesions noted Neuro General: patient oriented x3 and no focal motor deficits Extrem General: Yes full ROM Psych Appearance: grossly normal Assessment and Plan Assessment & Plan (1) Physical exam: Code(s): Z00.00 - Encounter for general adult medical examination without abnormal findings Plan: Repeat in a year. (2) Blurry vision: Code(s): H53.8 - Other visual disturbances Plan: Referred to Ophthalmology. (3) URI (upper respiratory infection): Code(s): J06.9 - Acute upper respiratory infection, unspecified Plan: Start doxycycline. Orders: Referrals Ophthalmology Referral H53.8 - Other visual disturbances Medications: New doxycycline hyclate 100 mg PO BID 5 days 10 tabs 0RF Ventolin HFA 90 mcg/actuation (albuterol sulfate) 2 puffs inhalation Q6H 30 days PRN 18 grams 1RF shortness of breath or wheezing NS benzonatate 100 mg PO BID 5 days PRN 10 caps 0RF cough Refilled loratadine (Allergy Relief (loratadine)) 10 mg PO DAILY 90 days 90 tabs 3RF sumatriptan succinate do not exceed 8 doses per 24 hrs 25 mg PO Q2-4H 30 days PRN 9 tabs 6RF migraine headache cholecalciferol (vitamin D3) 25 mcg PO DAILY 90 days 90 caps 1RF fluticasone propionate 50 mcg/actuation administer into each nostril 1 spray intranasal DAILY 30 days 16 grams 3RF Coding Level of Care Code Est Pt Level 3 (84584) Est Pt Prev Care 40-64y(11059) Diagnoses Physical exam Z00.00 Blurry vision H53.8 URI (upper respiratory infection) J06.9 Additional Codes RIO-7 Assessment Billing - RIO-7 Assessment Tool: RIO-7 Assessment 44107 ([id number]) Time Spent (min) 31
[2024-02-10 14:25] VITALS: BP 102/70; PULSE 70; O2SAT 97; BMI 27.6
== END 2024-02-10 15:06 | disposition home or self-care (01) ==
PROVIDERS: PCP Internal Medicine; Visit Provider Internal Medicine
DX: Z00.00 Encounter for general adult medical examination without abnormal findings (principal); H53.8 Other visual disturbances; J06.9 Acute upper respiratory infection, unspecified
CPT/HCPCS: 99213; 99396

== ENCOUNTER → 2024-04-02 14:36 | Outpatient (RCR) | payer OTHER, SELFPAY ==
[2020-11-29 09:06] VITALS: BP 116/65; PULSE 78; RESP 12; TEMP 36.1; O2SAT 99; BMI 25.3
--- NOTE | 2020-11-29 09:50 | PM.HEMONCCN ---
Subjective - Subjective Chief complaint: Consult for Right Breast Mass. Patient: new to practice Consult date: 11/29/20 Requesting Physician: Terrance. Primary Care Provider: Dipti Santacruz MD HPI - Consult Narrative Reason for consult: Consult for Right Breast Mass. Narrative: Cori Chandra is a pleasant 44 year old lady, who has noted a lump in her right breast since October. It started as a small lump however it has changes shape. Seems more like a maracca , now. It is rather tender. It gets more painful with her period. She had noticed a lump in the right breast few years ago. That appears to be stable. No nipple discharge nor retraction. No dimpling nor skin changes. Menarche: Age 15. Her periods are regular every 28 days although the last couple of cycles have been more irregular. Family history: Grandma had bladder cancer. Her mom had 16 siblings. Four of them have been diagnosed with lung stomach liver and colon cancer, respectively. 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 She is . She has 3 children. She smoked between 2009 and 2013 and then quit. She drinks socially. Now she takes wine where previously she liked her beer. ROS: She does feel rather fatigued. It is hard for her to do things she feels like going back to sleep. No fever nor chills. Her appetite is good. She lost 22 lb with her busy lifestyle. Occasional headaches. She thinks they are stress related. No chest pain or trouble breathing. Last week she had a cough she was sick with bronchitis. She has history of H pylori gastropathy. She gets nauseous at times she gets belly pain all the time. She has acid reflux. She takes Dexilant and Zofran as needed. Denies diarrhea no gross blood in the stools. No dysuria or hematuria. She gets joint pains all the time. She attributes that to her work. She denies focal weakness. Denies depression. No rashes nor pruritus. Review of Systems - Constitutional Reports no additional constitutional complaints - Eyes Reports no additional eye complaints - ENT Reports no additional ear, nose, mouth, and throat complaints - Cardiovascular Reports no additional cardiovascular complaints - Respiratory Reports no additional respiratory complaints - Gastrointestinal Reports no additional gastrointestinal complaints - Genitourinary Reports no additional female genitourinary complaints - Musculoskeletal Reports no additional musculoskeletal complaints - Integumentary/Breasts Skin/Breast: Reports no additional skin complaints - Neurologic Reports no additional neurologic complaints - Psychiatric Reports no additional psychiatric complaints - Endocrine Reports no additional endocrine complaints - Hematologic/Lymphatic Reports no additional hematologic/lymphatic complaints - Allergic/Immunologic Reports no additional allergic/immunologic complaints Oncology Screenings - ECOG Performance Status ECOG Performance Status: [facility] Medical History: Medical History (Last Updated 11/29/20 @ 09:23 by Patricia Hurt) Allergic rhinitis Breast mass Breast mass Chronic leukopenia Fatigue Migraines Functional capacity: independent ambulation Patient : No Family History: Family History (Last Updated 11/29/20 @ 09:24 by Patricia Hurt) Father Diabetes Hypertension Mother Osteoporosis Glaucoma Maternal Uncle Stomach cancer Colon cancer H/O: lung cancer Maternal Grandmother Gallbladder cancer Maternal Aunt Liver cancer Paternal Grandmother Alzheimers disease Maternal Grandfather Glaucoma Heart attack Surgical History: Surgical History (Last Reviewed 11/29/20 @ 09:10 by Patricia Hurt) H/O LEEP History of appendectomy History of shoulder surgery History of tubal ligation Social History: Social History (Last Updated 11/29/20 @ 09:10 by Patricia Hurt) Alcohol History: Alcohol intake: current Alcohol History Details: Alcohol intake frequency: holiday/special occasion Alcohol type: wine Tobacco History: Smoking Status: Former smoker Tobacco Type: Cigarette Substance Use History: Use of substances other than those prescribed or required for medical reasons: No Nutrition Assessment: Patient : No Smoking status: Former smoker Home Medications and Allergies Allergies Allergy/AdvReac Type Severity Reaction Status Date / Time latex [LATEX] Allergy Unknown RASH Verified 11/16/20 15:03 amoxicillin [AMOXICILLIN] AdvReac Unknown VOMITTING Verified 11/16/20 15:03 AND NAUSEA, abdominal pain, N/V and diarrhea Physical Exam Vital signs: Vital Signs Temp 97.0 F 11/29/20 09:06 Pulse 78 11/29/20 09:06 Resp 12 11/29/20 09:06 BP 116/65 11/29/20 09:06 Pulse Ox 99 11/29/20 09:06 Intake & Output 11/28/20 11/29/20 11/29/20 18:59 06:59 18:59 Other: Weight 80.1 kg Weight in Grams [id number] Weight 80.1 kg - Constitutional Present: mild distress - Routine HEENT Exam Head: Present: normal inspection ENT: Present: mucous membranes moist - Routine Neck Exam Present: supple - Routine Chest/Breast/Axilla Exam Breast: Present: mass Comments: There is lump in the right breast 9 o'clock position. It is firm and tender. It is movable. There are no skin changes nor nipple changes. Feels more like a fibroadenoma. She does have underlying fibrocystic disease of the breast. There is some induration in the left upper outer quadrant of the breast. Seems like more breast tissue is concentrated there. - Routine Respiratory Exam Present: CTAB - Routine Cardiovascular Exam Cardiovascular: Present: RRR, S1, S2 - Routine Abdominal Exam Present: normal bowel sounds, tenderness - Routine Rectal Exam Patient deferred: digital exam - Routine Skin Exam Present: intact, normal turgor - Routine Neurological Exam Present: alert, oriented X3, vision grossly intact - Detailed Neurological Exam: Coma Scale Eye Opening: Spontaneous (4) Verbal Response: Oriented (5) Motor Response: Obeys commands (6) [place] Coma Scale Total: 15 - Routine Psychiatric Exam Present: normal affect Hem/Onc Consult Result - Labs CBC & Chem 7: 11/29/20 10:15 11/29/20 10:15 Assessment and Plan (1) Breast mass, right Status: Acute This is a pleasant 44-year-old lady, without significant past medical history. She has noted right breast mass. It is movable. It is quite tender. Her breasts are rather cystic. Most likely she has a fibroadenoma, with underlying fibrocystic disease of the breast. DIFFERENTIAL DIAGNOSIS: 2. Breast cyst. 3. Malignancy: Less likely. PLAN: Will proceed with further imaging. She is scheduled for mammogram and right breast ultrasound for December 08. Will try to see if I can expedite that. There machine is broken today. They will call her later in the week. She will return in a couple of weeks for a follow-up. Will review the above imaging and take it from there. In the meantime, I will check baseline labs. All her and her 's questions were answered to their satisfaction. Thank you, CC: Dr. Carlos.
[2020-11-29 10:25] LABS: MANUAL DIFF FLAG NO
[2020-11-29 10:52] LABS: Basophils Percent Auto 0.5 % (0-2); Eosinophils Absolute Auto 0.1 X10*3/uL (0.0-0.4); Eosinophils Percent Auto 1.8 % (0-4); Hematocrit 37.7 % (37-47); Hemoglobin 12.8 g/dl (12.0-16.0); Imm Gran Abs Auto 0.01 X10*3/uL (0.00-0.03); Imm Gran Pct Auto 0.3 % (0.0-0.4); Lymphocytes Absolute Auto 1.6 X10*3/uL (1.2-4.9); Lymphocytes Percent Auto 40.4 % (20-40); Mean Corpuscular Hemoglobin 30.8 pg (27.0-33.0); Mean Corpuscular Volume 90.8 fL (80-98); Mean Platelet Volume 9.8 fL (9.4-12.3); Monocytes Absolute Auto 0.3 X10*3/uL (0.1-1.2); Monocytes Percent Auto 8.8 % (2-11); Neutrophils Absolute Auto 1.9 X10*3/uL (2.0-8.3); Neutrophils Percent Auto 48.2 % (45-73); Platelet Count 286 X10*3/uL (160-400); Red Blood Count 4.15 X10*6/uL (4.20-5.50); Red Cell Distribution Width 12.1 % (11.0-16.0); White Blood Count 3.9 X10*3/uL (4.8-10.8)
[2020-11-29 11:24] LABS: Alanine Aminotransferase 16 U/L (0-31); Alkaline Phosphatase 71 U/L (39-117); Anion Gap 11 (12-20); Aspartate Amino Transferase 19 U/L (5-31); Bilirubin Total 1.5 mg/dL (0.0-1.0); Blood Urea Nitrogen 15 mg/dL (9-16); Calcium 9.5 mg/dL (8.4-10.2); Carbon Dioxide 24 mmol/L (22-29); Chloride 108 mmol/L (96-108); Creatinine Clr Calc Pharmacy 105.7; Estimated Glomerular Filt Rate > 60; Glucose Random 90 mg/dL (60-115); Potassium 4.6 mmol/L (3.3-5.1); Sodium 138 mmol/L (135-145); Total Protein 6.5 g/dL (6.5-8.0)
--- NOTE | 2020-11-29 14:29 | MHC.HEMONCMA ---
Pt presents for consult for R breast lump. History reviewed, labs drawn and pt to return in a month.
[2020-12-13 08:26] VITALS: BP 100/51; PULSE 67; RESP 12; TEMP 36.8; O2SAT 95; BMI 25.7
--- NOTE | 2020-12-13 08:26 | P.PNHO_ITS ---
Medical Summary - Medical Summary Date of Service: 12/13/20 Chief complaint: Follow-up for: 1. Breast mass. 2. Anemia. Medical Summary: DIAGNOSIS: Right breast mass. Ultrasound revealed simple cyst. Interval History Interval history: Cori Chandra is a pleasant 44 year old lady, here for a follow-up visit. She had noted a lump in her right breast since October. It started as a small lump however it has changes shape. Seems more like a maracca , now. It is rather tender. It gets more painful with her period. She had noticed a lump in the right breast few years ago. That appears to be stable. No nipple discharge nor retraction. No dimpling nor skin changes. Menarche: Age 15. Her periods are regular every 28 days although the last couple of cycles have been more irregular. She was sent for mammogram and ultrasound of the breast. This was done on 12/09 and revealed: 1. No mammographic evidence of malignancy. 2. New simple cyst right breast at site of clinical concern posterior 9:00 position measuring 3.3. x 2.3. x 1.7 cm. No hyperemia. She is reassured with that. However the cyst does get painful at times, especially before her period. She would like to have it drained. She denies any other major complaints. ROS: She does feel rather fatigued. It is hard for her to do things she feels like going back to sleep. No fever nor chills. Her appetite is good. She lost 22 lb with her busy lifestyle. Occasional headaches. She thinks they are stress related. No chest pain or trouble breathing. Last week she had a cough she was sick with bronchitis. She has history of H pylori gastropathy. She gets nauseous at times she gets belly pain all the time. She has acid reflux. She takes Dexilant and Zofran as needed. Denies diarrhea no gross blood in the stools. No dysuria or hematuria. She gets joint pains all the time. She attributes that to her work. She denies focal weakness. Denies depression. No rashes nor pruritus. Family history: Grandma had bladder cancer. Her mom had 16 siblings. Four of them have been diagnosed with lung stomach liver and colon cancer, respectively. 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 She is . She has 3 children. She smoked between 2009 and 2013 and then quit. She drinks socially. Now she takes wine where previously she liked her beer. Review of Systems - Constitutional Reports no additional constitutional complaints - Eyes Reports no additional eye complaints - ENT Reports no additional ear, nose, mouth, and throat complaints - Cardiovascular Reports no additional cardiovascular complaints - Respiratory Reports no additional respiratory complaints - Gastrointestinal Reports no additional gastrointestinal complaints - Genitourinary Reports no additional female genitourinary complaints - Musculoskeletal Reports no additional musculoskeletal complaints - Integumentary/Breasts Skin/Breast: Reports no additional skin complaints - Neurologic Reports no additional neurologic complaints - Psychiatric Reports no additional psychiatric complaints - Endocrine Reports no additional endocrine complaints - Hematologic/Lymphatic Reports no additional hematologic/lymphatic complaints - Allergic/Immunologic Reports no additional allergic/immunologic complaints [facility] Medical History: Medical History (Last Reviewed 12/13/20 @ 08:29 by Patricia Hurt) Allergic rhinitis Breast mass Breast mass Chronic leukopenia Fatigue Migraines Functional capacity: independent ambulation Patient : No Family History: Family History (Last Reviewed 12/13/20 @ 08:29 by Patricia Hurt) Father Diabetes Hypertension Mother Osteoporosis Glaucoma Maternal Uncle Stomach cancer Colon cancer H/O: lung cancer Maternal Grandmother Gallbladder cancer Maternal Aunt Liver cancer Paternal Grandmother Alzheimers disease Maternal Grandfather Glaucoma Heart attack Surgical History: Surgical History (Last Reviewed 12/13/20 @ 08:29 by Patricia Hurt) H/O LEEP History of appendectomy History of shoulder surgery History of tubal ligation Social History: Social History (Last Reviewed 12/13/20 @ 08:29 by Patricia Hurt) Alcohol History: Alcohol intake: current Alcohol History Details: Alcohol intake frequency: holiday/special occasion Alcohol type: wine Tobacco History: Smoking Status: Former smoker Tobacco Type: Cigarette Substance Use History: Use of substances other than those prescribed or required for medical reasons : No Nutrition Assessment: Patient : No Smoking status: Former smoker Oncology Screenings - ECOG Performance Status ECOG Performance Status: 0 Home Medications and Allergies Allergies Allergy/AdvReac Type Severity Reaction Status Date / Time latex [LATEX] Allergy Unknown RASH Verified 11/16/20 15:03 amoxicillin [AMOXICILLIN] AdvReac Unknown VOMITTING Verified 11/16/20 15:03 AND NAUSEA, abdominal pain, N/V and diarrhea Exam Vital signs: Vital Signs Temp 97.0 F 04/27/21 09:06 Pulse 78 11/29/20 09:06 Resp 12 11/29/20 09:06 BP 116/65 11/29/20 09:06 Pulse Ox 99 11/29/20 09:06 Weight 80.1 kg Body Mass Index 25.3 - Constitutional Present: mild distress - Routine HEENT Exam Head: Present: normal inspection Eye: Present: normal appearance ENT: Present: mucous membranes moist - Routine Neck Exam Present: full ROM - Routine Respiratory Exam Present: CTAB - Routine Cardiovascular Exam Cardiovascular: Present: RRR, S1, S2 - Routine Abdominal Exam Present: normal bowel sounds, tenderness - Routine Rectal Exam Patient deferred: digital exam - Routine Extremities Exam Present: nontender - Routine Back/Spine/Pelvis Exam Back/Spine: Present: full ROM - Routine Skin Exam Present: intact, normal turgor - Routine Neurological Exam Present: alert, oriented X3, vision grossly intact - Detailed Neurological Exam: Coma Scale Eye Opening: Spontaneous (4) - Routine Psychiatric Exam Present: normal affect Data - Labs CBC & Chem 7: 11/29/20 10:15 11/29/20 10:15 Labs: 11/29/20 10:15 CMP [Comprehensive Met. Panel] Routine Complete Blood Count Auto Diff Routine Laboratory Last Values WBC 3.9 X10*3/uL (4.8-10.8) L 11/29/20 10:15 RBC 4.15 X10*6/uL (4.20-5.50) L 11/29/20 10:15 Hgb 12.8 g/dl (12.0-16.0) 11/29/20 10:15 Hct 37.7 % (37-47) 11/29/20 10:15 MCV 90.8 fL (80-98) 11/29/20 10:15 MCH 30.8 pg (27.0-33.0) 11/29/20 10:15 MCHC 34.0 g/dl (31.0-35.0) 11/29/20 10:15 RDW 12.1 % (11.0-16.0) 11/29/20 10:15 Plt Count 286 X10*3/uL (160-400) D 11/29/20 10:15 MPV 9.8 fL (9.4-12.3) 11/29/20 10:15 Immature Gran % (Auto) 0.3 % (0.0-0.4) 11/29/20 10:15 Neut % (Auto) 48.2 % (45-73) 11/29/20 10:15 Lymph % (Auto) 40.4 % (20-40) H 11/29/20 10:15 [place] % (Auto) 8.8 % (2-11) 11/29/20 10:15 Eos % (Auto) 1.8 % (0-4) 11/29/20 10:15 Baso % (Auto) 0.5 % (0-2) 11/29/20 10:15 Lymph # (Auto) 1.6 X10*3/uL (1.2-4.9) 11/29/20 10:15 [place] # (Auto) 0.3 X10*3/uL (0.1-1.2) 11/29/20 10:15 Eos # (Auto) 0.1 X10*3/uL (0.0-0.4) 11/29/20 10:15 Baso # (Auto) 0.0 X10*3/uL (0.0-0.2) 11/29/20 10:15 Abs Immat Gran (auto) 0.01 X10*3/uL (0.00-0.03) 11/29/20 10:15 Absolute Neuts (auto) 1.9 X10*3/uL (2.0-8.3) L 11/29/20 10:15 Absolute Nucleated RBC 0.000 X10*3/uL (0.0-0.012) 11/29/20 10:15 Nucleated RBC % (auto) 0.0 /100WBC (0.0-0.2) 11/29/20 10:15 Sodium 138 mmol/L (135-145) 11/29/20 10:15 Potassium 4.6 mmol/L (3.3-5.1) 11/29/20 10:15 Chloride 108 mmol/L (96-108) 11/29/20 10:15 Carbon Dioxide 24 mmol/L (22-29) 11/29/20 10:15 Anion Gap 11 (12-20) L 11/29/20 10:15 BUN 15 mg/dL (9-16) 11/29/20 10:15 Creatinine 0.75 mg/dL (0.5-1.4) 11/29/20 10:15 Estim Creat Clear Calc 105.7 11/29/20 10:15 Estimated GFR > 60 11/29/20 10:15 Random Glucose 90 mg/dL (60-115) 11/29/20 10:15 Calcium 9.5 mg/dL (8.4-10.2) 11/29/20 10:15 Total Bilirubin 1.5 mg/dL (0.0-1.0) H 11/29/20 10:15 AST 19 U/L (5-31) 11/29/20 10:15 ALT 16 U/L (0-31) 11/29/20 10:15 Alkaline Phosphatase 71 U/L (39-117) 11/29/20 10:15 Total Protein 6.5 g/dL (6.5-8.0) 11/29/20 10:15 Albumin 4.0 g/dL (3.5-5.0) 11/29/20 10:15 Progress Note: A/P (1) Breast mass, right Status: Acute Assessment and plan: This is a pleasant 44-year-old lady, without significant past medical history. She has noted right breast mass. It is movable. It is quite tender. Her breasts are rather cystic. Most likely she has a fibroadenoma, with underlying fibrocystic disease of the breast. DIFFERENTIAL DIAGNOSIS: 2. Breast cyst. 3. Malignancy: Less likely. l proceeded with further imaging. She was sent for mammogram and ultrasound of the breast. This was done on 12/09 and revealed: 1. No mammographic evidence of malignancy. 2. New simple cyst right breast at site of clinical concern posterior 9:00 position measuring 3.3. x 2.3. x 1.7 cm. No hyperemia. The cyst is rather large. Gets painful especially premenstrually. PLAN: She will be referred to Dr. Uriarte for cyst aspiration. Her bilirubin is borderline elevated. Will fractionate next time She will return in 3 months for a follow-up visit. All her questions were answered to their satisfaction. Thank you, CC: Dr. Carlos. - Time Spent With Patient Total time spent is greater than 50% in coordination of care (as documented) at patient's floor/unit and/or counseling patient: 25 - 35 minutes
--- NOTE | 2020-12-13 08:43 | MHC.HEMONCMA ---
Addendum entered by Patricia Hurt 12/26/20 11:36: Pt has appt with Dr Uriarte on 01/24/21 @ 3pm. Pt was notified by mail. Original Note: Pt present to f/u on R breast lump. History reviewed and pt referred to Dr Uriarte.
== END | disposition home or self-care (01) ==
LOC: HO.ONC 11-29 09:03
PROVIDERS: PCP Internal Medicine; Referring Provider Internal Medicine; Visit Provider Internal Medicine Medical Oncology
DX: N60.01 Solitary cyst of right breast (principal)
CPT/HCPCS: 36415; 80053; 85025; 99204; 99214

== ENCOUNTER 2024-07-21 13:01 | Outpatient (AMB) | payer OTHER, SELFPAY ==
--- OUTSIDE RECORDS SUMMARY | 2024-07-21 13:04 | XMS_ITS ---
Author Organization [facility] Address [address] [place] [phone] Care Team Providers Care Corner Block Cutter Name Role Phone Dipti Mead Primary Care Provider Unavailab Colton Ross Unavailable [phone] Encounters Encounter Location Date Provider Diagnosis [facility] [address] [place] [phone] 08/20/2023 Colton Rock PLAN OF TREATMENT No Information
--- OUTSIDE RECORDS SUMMARY | 2024-07-21 13:04 | XMS_ITS | Patient Health Record ---
Author Organization [facility] Address [address] [place] [phone] Care Team Providers Care Supervisor Loading Name Role Phone Dipti Mead Primary Care Provider UnavailColton Lawton Unavailable [phone] REASON FOR REFERRAL No Information SOCIAL HISTORY Sex Assigned At : Social History Observation Description Sex Assigned At Unknown Encounters Encounter Location Date Provider Diagnosis [facility] [address] [place] [phone] 08/20/2023 Colton Rock [facility] [address] [place] [phone] 08/20/2023 Colton Rock PLAN OF TREATMENT No Information Insurance Providers Payer Name Payer Address Payer Phone Subscriber Number Group Number Insured Name Patient Relationship to Insured Coverage Start Date Coverage End Date [facility] [address] [address] [place], [place] [id number] EDUARDO BIGGS Self - patient is the insured
--- OUTSIDE RECORDS SUMMARY | 2024-07-21 13:04 | XMS_ITS ---
Author Organization [facility] Address [address] [place] [phone] Care Team Providers Care Try Out Person Name Role Phone Dipti Mead Primary Care Provider Unavailab Colton Ross Unavailable [phone] Encounters Encounter Location Date Provider Diagnosis [facility] [address] [place] [phone] 02/14/2023 Colton Rock PLAN OF TREATMENT No Information
--- OUTSIDE RECORDS SUMMARY | 2024-07-21 13:04 | XMS_ITS ---
Author Organization [facility] Address [address] [place] [phone] Care Team Providers Care Dry Paste Supervisor Name Role Phone Dipti Mead Primary Care Provider Unavailab Colton Ross Unavailable [phone] REASON FOR VISIT Patient presents today for jaundice Encounters Encounter Location Date Provider Diagnosis [facility] [address] [place] [phone] 08/20/2023 Colton Rock PLAN OF TREATMENT No Information
--- NOTE | 2024-07-21 13:07 | MHC.OFFVIS ---
Vital Signs 07/21/24 13:10 Height 5 ft 9 in Weight 187 lb BMI 27.6 BP 104/60 Intake Visit Reasons: Ultrasound follow up/EMB Rehab Nursing Tech Required: Yes Rehab Nursing Tech Language: Cellophane Bath Mixer Services: Rehab Nursing Tech Present (in person) Rehab Nursing Tech Name: Diane BACHFatoumata Rabbit Dresser: Rabbit Dresser Present (Diane Seng AGUSTIN) Allergies latex [LATEX] Allergy (Unknown, Verified 07/21/24 13:08) RASH lactose Adverse Reaction (Severe, Verified 07/21/24 13:08) Abdominal Pain amoxicillin [AMOXICILLIN] Adverse Reaction (Unknown, Verified 07/21/24 13:08) VOMITTING AND NAUSEA, abdominal pain, N/V and diarrhea Is last menstrual period known: Yes Last menstrual period: 06/24/24 HPI Comments Details: Patient is here today for a follow up ultrasound results, and EMB, history of AUB. Currently she reports heavy menstrual bleeding on and off less than 15 days apart at times. She denies any pelvic pain. [facility] Medical History Right leg numbness Lumbar back pain with radiculopathy affecting right lower extremity Vaginal irritation H/O sigmoidoscopy Left foot pain Lumbar pain Breast mass Breast mass Chronic leukopenia Fatigue Migraines Allergic rhinitis Surgical History History of tonsillectomy and adenoidectomy History of esophagogastroduodenoscopy (EGD) History of shoulder surgery H/O LEEP History of appendectomy History of tubal ligation Family History Father Diabetes Hypertension Mother Osteoporosis Arthritis Glaucoma Maternal Uncle Stomach cancer Colon cancer H/O: lung cancer Maternal Grandmother Gallbladder cancer Maternal Aunt Liver cancer Paternal Grandmother Alzheimers disease Maternal Grandfather Heart attack Glaucoma Maternal Uncle Colon cancer Social History Housing: House Alcohol intake: current Alcohol intake frequency: holidays/special occasions only Alcohol type: wine Patient Tobacco Use Status: Former Tobacco user e-Cigarette/Vaping Use: Never Used Second Hand Smoke Exposure: No service: No Current occupational status: employed Current occupational exposures/hazards: No Cognitive needs: No Hearing needs: No Vision needs: No Female Reproductive History Menstrual Age of Menarche: 15 Date of last menstrual period: 06/24/24 Review of Systems Const All systems reviewed & are unremarkable except as noted in HPI and below Physical Exam Vital Signs: Last Vital Signs BP 104/60 07/21/24 13:10 BMI result Body Mass Index 27.6 Const General: cooperative, healthy appearing and no acute distress Orientation/consciousness: patient oriented x3 GI Inspection: Yes normal to inspection Palpation (GI): Soft to palpation and Other GI palpation findings present (Nontender) Rectal Exam - Female: visual inspection normal General: Yes bladder normal to palpation External Female Exam: normal appearance of the urethra Speculum Exam - Vagina: normal appearance of the vagina, normal palpation and normal vaginal discharge Speculum Exam - Cervix: normal appearance of the cervix and normal palpation Bimanual exam- vagina & uterus: normal bimanual exam, normal palpation, uterine size normal, bladder normal to palpation, normal palpation, uterine shape normal and non-tender Bimanual Exam- Adnexa, other: normal adnexae Neuro General: patient oriented x3 Office Procedures Endometrial Biopsy Details: The patient is here today for an endometrial biopsy due to AUB to rule out any pathology including atypical, hyperplasia or cancer cells of the uterus. She was counseled regarding anticipatory guidance for the procedure including the risks for pain, infection, bleeding, perforation, potential injury to the tissues may include the cervix, uterus, tubes, bladder and bowels. These injuries may include further treatment and evaluation including surgery, blood transfusions, antibiotics, hospitalizations and anesthesia. Permanent injury and scarring can occur. She was consented for the procedure, and the consent forms were signed. She is agreeable to have the procedure today. All questions were answered. Endometrial Biopsy Procedure: The patient was placed in the dorsal lithotomy position and a sterile speculum inserted. Using aseptic technique for the procedure. The cervix was cleansed with Betadine x 3 swabs. A single toothed tenaculum was placed on the cervix for stabilization, internal os slightly stenotic small graduated dilator advanced x1 without difficulty and the uterus was sounded to 8 cm with a 4mm pipelle, and tissue sample obtained. Minimal bleeding was observed. The tissue sample was placed in formalin in a patient labeled container by staff assisting and sent to the pathology department for processing and interpretation. The patient tolerate the procedure well and was in good condition when leaving the department. Endometrial Biopsy Post Procedure Care: Nothing in the vagina including: tampons, douching or intimacy until all the bleeding has subsided. There may be some post procedure bleeding for several days, this bleeding is usually light and may turn to a light brown or pink color. Mild cramps may occurs. Nothing in the vaginal including: tampons, douching, or intimacy until all the bleeding has subsided. You may take an over the counter mild analgesic such as Tylenol or Advil (if no allergies) per the manufactures recommendation on dosing, frequency, and follow the directions completely. Call the office if any: fever (over 100.4), flu like symptoms, abdominal pain (worse than cramping), foul smelling, infected appearing vaginal discharge, or heavy bleeding. If indicated: Use condoms to prevent and STI's, and only after the bleeding has stopped completely. Return to the office in 2 weeks for results and plan of care. This note is constructed using voice recognition software. While every effort has been made to ensure accuracy, supervisor small appliance assembly errors may have been included. [id number]-Irneyldygli Biopsy Results AMB Test Urine AMB Test Urine Negative Last Edit by NIKOLE Chávez on 07/21/24 13:14 Results Reviewed Results Reviewed: Laboratory Last Values [facility]st Clinic Negative 07/21/24 13:13 [place] [address] Ultrasound Report Signed Patient: Cori Chandra MR#: [id number] : 1975 Acct:[id number] Age/Sex: 47 / F ADM Date: 12/10/23 Loc: HO.US Attending Dr: Oneida Santana CNM Ordering Physician: Oneida Santana CNM Date of Service: 12/10/23 Procedure(s): US pelvic and transvaginal Accession Number(s): [id number] cc: Oneida Santana CNM; Dipti Mead MD~ EXAMINATION: US PELVIS CLINICAL INFORMATION: Abnormal uterine and vaginal bleeding; the last menstrual period was on 11/21/2023. COMPARISON: None available. TECHNIQUE: Ultrasound of the pelvis is performed using both transabdominal and transvaginal transducers along with Doppler. Transvaginal imaging is performed due to inadequate visualization transabdominally. FINDINGS: Uterus: The uterus is retroverted and retroflexed. The uterus measures 9.1 x 4.9 x 4.7 cm. Nabothian cysts are seen within the cervix The double wall endometrial thickness is 15 mm. The uterus is smooth in contour and has normal myometrial echogenicity. No visible fibroid. Adnexa: Both ovaries are visualized. There is normal color flow to the adnexa. There is no ovarian torsion. There is a small amount of free fluid within the cul-de-sac. Right ovary measures 3.7 x 1.8 x 1.9 cm, volume 6.6 mL. A 1.7 x 1.3 x 1.4 cm benign corpus luteum cyst is seen, which requires no imaging follow-up. Left ovary measures 2.6 x 0.9 x 1.5 cm, volume 6.1 mL. US/US pelvic and transvaginal IMPRESSION: 1. A small amount of free fluid is seen within the cul-de-sac. 2. Nabothian cysts are seen within the cervix. Dictated By: Ramiro Gilliam MD Signed By: <Electronically signed by Ramiro Gilliam MD in OV> 12/11/23 1719 DD/ 1624 TD/TT: Licensed Practical Nurse Instructor: JENNIFER Assessment & Plan Assessment & Plan (1) Abnormal uterine bleeding (AUB): Code(s): N93.9 - Abnormal uterine and vaginal bleeding, unspecified (2) Encounter to discuss test results: Code(s): Z71.2 - Person consulting for explanation of examination or test findings Plan See procedure notes. Discussed: Ultrasound findings small 1.7 CL cysts. No follow up indicated at this time. Counseled regarding Mirena IUD placement due to AUB x5 years, risks benefits, booklet given, schedule results appointment and Mirena insert same day. Counseled regarding preprocedure ibuprofen or Tylenol 1 hour head with food/fluids. The patient expressed understanding and agreement with the plan of care. All of her questions and concerns were addressed to the best of my ability. This note is constructed using voice recognition software. While every effort has been made to ensure accuracy, supervisor small appliance assembly errors may have been included. Orders: Orders AMB HCG Urine Test Today Z32.02 - Encounter for test, result negative HPV High risk Today N93.9 - Abnormal uterine and vaginal bleeding, unspecified Pap Smear Today N93.9 - Abnormal uterine and vaginal bleeding, unspecified Surgical Today N93.9 - Abnormal uterine and vaginal bleeding, unspecified Coding Level of Care Code Procedure Only Diagnoses Abnormal uterine bleeding (AUB) N93.9 Encounter to discuss test results Z71.2 CPT Codes Endometrial Biopsy - CPT: 67211-Jadwjbstxdb Biopsy ([id number])
[2024-07-21 13:10] VITALS: BP 104/60; BMI 27.6
== END 2024-07-21 14:55 | disposition home or self-care (01) ==
PROVIDERS: PCP Internal Medicine; Visit Provider Advanced Practice Midwife
DX: N93.9 Abnormal uterine and vaginal bleeding, unspecified (principal); Z32.02 Encounter for pregnancy test, result negative
CPT/HCPCS: 58100

== ENCOUNTER 2024-07-21 13:01 | Outpatient (REF) | payer OTHER, SELFPAY ==
[2024-07-22 11:52] LABS: HPV 16,18/45 See PAP report
== END 2024-07-21 13:02 | disposition home or self-care (01) ==
LOC: HO.LNP 13:01
PROVIDERS: PCP Internal Medicine; Visit Provider Advanced Practice Midwife
DX: N93.9 Abnormal uterine and vaginal bleeding, unspecified (principal)
CPT/HCPCS: 58100; 81025; 87624; 88175; 88305

== ENCOUNTER 2024-08-31 15:28 | Outpatient (AMB) | payer OTHER, SELFPAY ==
[2024-08-31 15:30] VITALS: BP 110/70; BMI 28.2
--- NOTE | 2024-08-31 15:30 | A.OFFPC_ITS ---
Vital Signs 08/31/24 15:30 Height 5 ft 9 in Weight 191 lb BMI 28.2 BP 110/70 Blood Pressure Location Lt brachial Position Sitting Intake Visit Reasons: 6 month follow up Intake Note: Patient here for a 6 month follwo up Quality Control Manager Required: Yes Quality Control Manager Language: Welding Machine Setter Name: Dipti Santacruz MD Information Interpreted: non-clinical & clinical Accompanied by: Self / Same As Patient Allergies latex [LATEX] Allergy (Unknown, Verified 08/31/24 15:47) RASH lactose Adverse Reaction (Severe, Verified 08/31/24 15:47) Abdominal Pain amoxicillin [AMOXICILLIN] Adverse Reaction (Unknown, Verified 08/31/24 15:47) VOMITTING AND NAUSEA, abdominal pain, N/V and diarrhea Medication List - Last Reconciled 08/31/24 by Dipti Santacruz MD albuterol sulfate 90 mcg/actuation (ProAir HFA) 0 mcg inhalation Q4H PRN cholecalciferol (vitamin D3) 25 mcg PO DAILY 90 days dexlansoprazole (Dexilant) 60 mg PO DAILY 90 days fluticasone propionate 50 mcg/actuation 1 spray intranasal DAILY 30 days loratadine (Allergy Relief (loratadine)) 10 mg PO DAILY 90 days sumatriptan succinate 25 mg PO Q2-4H PRN 30 days Ventolin HFA 90 mcg/actuation (albuterol sulfate) 2 puffs inhalation Q6H PRN 30 days NS Tobacco use date assessed: 08/31/24 Dental Screening Dental Screen Date: 08/31/24 Did you have a dental visit in the last 12 months?: Yes Did you have a dental problem in the last 6 months where you did not have access to dental care?: No Was dental information given to patient?: Patient has dentist HPI HPI Comments History of Present Illness Details The patient is a 48-year-old female presenting with migraines, GERD- related insomnia, and intermittent ear pain. Her migraines are reportedly controlled, though she reports possible decreased efficacy of her current regimen. The migraines are severe when they occur, with no specific triggers identified. She utilizes sumatriptan for acute relief. She has a history of GERD, for which an endoscopy indicated erythematous gastritis, with current management on 30 mg of a proton pump inhibitor. She reports adjustment issues with her medication and experiences significant insomnia, sleeping only one hour per night. She has tried magnesium supplementation with a maintenance dose of 200 mg, adjusting to 400 mg as suggested. She inquired about pain management and physiotherapy due to ongoing discomforts but faced availability constraints. Additionally, the patient describes episodes of intermittent right ear pain lasting a few days, presenting with periodicity and no constant pattern. Has chronic leukopenia that has been evaluated and is benign. She complains of neck pain and physical therapies pending. I did refer her to pain management. [facility] Medical History Right leg numbness Lumbar back pain with radiculopathy affecting right lower extremity Vaginal irritation H/O sigmoidoscopy Left foot pain Lumbar pain Breast mass Breast mass Chronic leukopenia Fatigue Migraines Allergic rhinitis Surgical History History of tonsillectomy and adenoidectomy History of esophagogastroduodenoscopy (EGD) History of shoulder surgery H/O LEEP History of appendectomy History of tubal ligation Family History Father Diabetes Hypertension Mother Osteoporosis Arthritis Glaucoma Maternal Uncle Stomach cancer Colon cancer H/O: lung cancer Maternal Grandmother Gallbladder cancer Maternal Aunt Liver cancer Paternal Grandmother Alzheimers disease Maternal Grandfather Heart attack Glaucoma Maternal Uncle Colon cancer Social History Housing: House Alcohol intake: current Alcohol intake frequency: holidays/special occasions only Alcohol type: wine Patient Tobacco Use Status: Former Tobacco user e-Cigarette/Vaping Use: Never Used Second Hand Smoke Exposure: No service: No Current occupational status: employed Current occupational exposures/hazards: No Cognitive needs: No Hearing needs: No Vision needs: No Female Reproductive History Menstrual Age of Menarche: 15 Questionnaire PHQ-9 Over the last 2 weeks, how often have you been bothered by any of the following problems? 1. Little interest or pleasure in doing things: not at all 2. Feeling down, depressed, or hopeless: not at all 3. Trouble falling or staying asleep, or sleeping too much: not at all 4. Feeling tired or having little energy: not at all 5. Poor appetite or overeating: not at all 6. Feeling bad about yourself - or that you are a failure or have let yourself or your family down: not at all 7. Trouble concentrating on things, such as reading the newspaper or watching television: not at all 8. Moving or speaking so slowly that other people could have noticed. Or the opposite - being so fidgety or restless that you have been moving around a lot more than usual: not at all 9. Thoughts that you would be better off or of hurting yourself in some way: not at all Total score: 0 Depression Screening Interpretation: Negative Depression Screening Done: Yes 70217 - PHQ-9 Billing: Yes Source: Developed by Drs. Colton Batista, Erika Levin, Александр Srinivasan and colleagues, with an educational alia from [employer]. Thrive Questionnaire Date Thrive assessed: 08/31/24 I am a: Patient What is your living situation today?: I have a steady place to live Within the past 12 months, did the food you bought not last and you didn't have the money to get more?: Never true Within the past 12 months, did you worry whether your food would run out before you got money to buy more?: Never true Do you have trouble paying for medicines?: No Do you have trouble getting transportation to medical appointments?: No Do you have trouble paying your heating and electricity bill?: No Do you have trouble taking care of your child, family member or friend?: No Do you have trouble with day-to-day activities such as bathing, preparing meals, shopping, managing finances, etc.?: No Are you currently unemployed and looking for a job?: No Are you interested in more education?: No Please select the resources that you would like help with: None Currently or been in a relationship where the following occur: No concerns reported THRIVE Score: 0 AUDIT C Alcohol Use Questionnaire (AUDIT-C) 1. How often do you have a drink containing alcohol?: Never Total Score: 0 Score Reviewed/Action Taken: No RIO-7 AMB Questionnaire RIO-7 Date RIO - 7 assessed: 08/31/24 Feeling nervous, anxious, or on edge: 0 = Not at all Not being able to stop or control worryin = Not at all Worrying too much about different things: 0 = Not at all Trouble relaxin = Not at all Being so restless that it is hard to sit still: 0 = Not at all Becoming easily annoyed or irritable: 0 = Not at all Feeling afraid as if something awful might happen: 0 = Not at all Total RIO-7 score (0-4 normal; 5-9 mild; 10-14 moderate; 15-21 severe): 0 Source: Developed by Drs. Colton Batista, Erika Levin, Александр Srinivasan and colleagues, with an educational alia from [employer]. RIO-7 Assessment Billing RIO-7 Assessment Tool: RIO-7 Assessment 14632 Review of Systems Const All systems reviewed & are unremarkable except as noted in HPI and below Card Denies chest pain at rest, Denies chest pain with activity, Denies edema, Denies irregular heart rhythm, Denies claudication, Denies dyspnea, Denies dyspnea on exertion, Denies orthopnea, Denies paroxysmal nocturnal dyspnea and Denies slow heart rate Resp Denies cough, Denies dyspnea and Denies dyspnea on exertion GI Denies abdominal pain, Denies change in bowel habits, Denies excessive flatus, Denies nausea and Denies vomiting Physical exam (Primary Care) Vital Signs: Last Vital Signs BP 110/70 08/31/24 15:30 BMI result Body Mass Index 28.2 Tobacco/Smoking Status: Tobacco use Status Tobacco use date assessed 08/31/24 08/31/24 15:37 Patient Tobacco Use Status Former Tobacco user 08/31/24 15:37 e-Cigarette/Vaping Use Never Used 08/31/24 15:37 PHQ-9: PHQ-9 Score PHQ-9: Total score 0 08/31/24 16:14 Depression Screening Interpretation: Negative Thrive Assessment: Date of Thrive Assessment Date Thrive assessed 08/31/24 08/31/24 15:37 Currently or been in a relationship where the following occur: No concerns reported Resp Effort & Inspection: normal respiratory effort Auscultation: clear to auscultation bilaterally Cardio Jugular venous distension: no JVD Rate: regular rate Rhythm: regular rhythm Heart sounds: S1 normal heart sound present and S2 normal heart sound present Extrem General: Yes full ROM Results AMB Urinalysis, Automated UA Leukoctes 0 Carl/uL Last Edit by NIKOLE Ponce on 08/31/24 16:15 UA Nitrite Negative Last Edit by Lilian Echavarria, RMA on 08/31/24 16:15 UA Urobilinogen 0 mg/dL Last Edit by Lilian Echavarria, RMA on 08/31/24 16:15 UA Protein 0 mg/dL Last Edit by Lilian Echavarria, RMA on 08/31/24 16:15 UA pH 6.0 Last Edit by Lilian Echavarria, RMA on 08/31/24 16:15 UA Blood 0 Riley/uL Last Edit by Lilian Echavarria, RMA on 08/31/24 16:15 UA Specific [place] 1.025 Last Edit by Lilian Echavarria, RMA on 08/31/24 16 :15 UA Ketone Negative Last Edit by Lilian Echavarria, RMA on 08/31/24 16:15 UA Bilirubin 0 mg/dL Last Edit by Lilian Echavarria, RMA on 08/31/24 16:15 UA Glucose 0 mg/dL Last Edit by Lilian Echavarria, A on 08/31/24 16:15 Results Reviewed Results Reviewed: Laboratory Last Values Urine pH (Auto) 6.0 08/31/24 16:12 Specific [place] (Auto) 1.025 08/31/24 16:12 Urine Protein (Auto) 0 mg/dL 08/31/24 16:12 Glucose (UA)(Auto) 0 mg/dL 08/31/24 16:12 Urine Ketones (Auto) Negative 08/31/24 16:12 Urine Blood (Auto) 0 Riley/uL 08/31/24 16:12 Urine Nitrite (Auto) Negative 08/31/24 16:12 Urine Bilirubin (Auto) 0 mg/dL 08/31/24 16:12 Urine Urobilinogen (Auto) 0 mg/dL 08/31/24 16:12 Leukocyte Esterase (Auto) 0 Carl/uL 08/31/24 16:12 Coding Level of Care Code Est Pt Level 4 (05840) Complex EM visit Add On G2211 Diagnoses Neck pain M54.2 Gastroesophageal reflux disease, unspecified whether esophagitis present K21.9 Esophagitis presence: esophagitis presence not specified Irritable bowel syndrome with diarrhea K58.0 Migraine without status migrainosus, not intractable, unspecified migraine type G43.909 Migraine type: unspecified Status migrainosus presence: without status migrainosus Intractability: not intractable Chronic leukopenia D72.819 Additional Codes RIO-7 Assessment Billing - RIO-7 Assessment Tool: RIO-7 Assessment 51558 ([id number]) PHQ-9 - 70283 - PHQ-9 Billing: Yes ([id number]) Time Spent (min) 22 Assessment & Plan Assessment & Plan (1) Neck pain: Code(s): M54.2 - Cervicalgia Category: Medical (2) GERD (gastroesophageal reflux disease): Code(s): K21.9 - Gastro-esophageal reflux disease without esophagitis Category: Medical Qualifiers: Esophagitis presence: esophagitis presence not specified Qualified C ode(s): K21.9 - Gastro-esophageal reflux disease without esophagitis (3) Irritable bowel syndrome with diarrhea: Code(s): K58.0 - Irritable bowel syndrome with diarrhea Category: Medical (4) Migraines: Code(s): G43.909 - Migraine, unspecified, not intractable, without status migrainosus Category: Medical Qualifiers: Migraine type: unspecified Status migrainosus presence: without status migrainosus Intractability: not intractable Qualified Code(s): G43.909 - Migraine, unspecified, not intractable, without status migrainosus (5) Chronic leukopenia: Code(s): D72.819 - Decreased white blood cell count, unspecified Category: Medical Plan - Add amitriptyline for migraine prophylaxis and to address concurrent insomnia. - Continue current dosing of sumatriptan for acute migraine episodes, evaluating its efficacy. - Adjust the current proton pump inhibitor regimen for GERD, monitoring symptoms. - Encourage the use of magnesium at 400 mg for migraine prevention. - Advise a follow-up or alternative therapy options pending availability for pain management services. - Continue monitoring for any allergic reaction signs due to latex, lactose, or amoxicillin exposure. - Evaluate the right ear for any potential otitis or related issues in further appointments if symptoms persist. Patient was informed and verbally consented to the use of an ambient scribe for clinic note documentation during this visit. During the consultation, I discussed with the patient the addition of amitriptyline to help manage her migraines and address insomnia. I explained potential sedative effects and advised on magnesium dosage adjustments to possibly improve both migraines and sleep. We also reviewed the current efficacy of sumatriptan, recommending continued use while monitoring outcomes. I highlighted difficulties in scheduling with existing physiotherapy services and alternative pain management methods, offering to assist with scheduling at available locations. Treatment risks, benefits, and alternative management strategies were explored for ongoing care. The patient was receptive to the proposed plan and understands the risks and benefits associated with new medication and therapy options. Orders: Orders Comprehensive [place]. Panel Fast 6 Months M54.2 - Cervicalgia AMB Urinalysis Automated Today R30.0 - Dysuria Lipid Panel 6 Months E78.5 - Hyperlipidemia, unspecified Glucose 2 Hour PP 6 Months R73.9 - Hyperglycemia, unspecified Referrals Pain Management Referral M54.2 - Cervicalgia Medications: New amitriptyline 10 mg PO BEDTIME 90 tabs 1RF 90 days dexlansoprazole (Dexilant) 30 mg PO DAILY 90 caps 1RF 90 days azithromycin take 2 tabs the first day, then 1 tab for the next 4 days 250 mg PO DAILY 6 tabs 0RF 5 days Discontinued dexlansoprazole (Dexilant) Discontinued Reason: Patient Completed Course 60 mg PO DAILY 90 days 90 caps 1RF K21.9 - Gastro-esophageal reflux disease without esophagitis Patient Instructions: - Begin taking amitriptyline as prescribed for migraines and insomnia. - Continue and monitor sumatriptan, report changes in migraine patterns. - Adjust magnesium intake to 400 mg daily for migraine prevention. - Follow modified GERD treatment; note any symptom changes. - Seek urgent care for any signs of severe allergy or reaction. - Pursue pain management appointments as soon as possible. - Report persistent or worsening ear pain for further evaluation.
--- OUTSIDE RECORDS SUMMARY | 2024-08-31 19:30 | XMS_ITS | Clinical Summary ---
Author Organization [facility] Address [address] [place] [address] Care Team Providers Care Religious Ritual Slaughterer Name Role Phone Unavailable Primary Care Provider Unavailabl e Source Comments PLEASE NOTE, if this patient is a minor, it may be UNLAWFUL to discuss sensitive information that is contained in these records (such as FAMILY PLANNING, MENTAL HEALTH or SUBSTANCE ABUSE) with the minor patient's parent or other person without the patient's specific authorization.[facility] Social History Tobacco Use Types Packs/Day Years Used Date Smoking Tobacco: Former Cigarettes 2013 Alcohol Use Standard Drinks/Week Comments Not Currently 0 (1 standard drink = 0.6 oz pur e alcohol) Social Connections Answer Date Recorded Connectedness 0 04/17/2024 Financial Resource Strain Answer Date R ecorded Financial Resource Strain 0 2021 Stress Answer Date Recorded Stress 0 11/30/2021 Physical Activity Answer Date Recorded Physical Activity 0 11/30/2021 Food Insecurity Answer Date Recorded Food 0 04/30/2024 Transportation Needs Answer Date Record ed Transportation 0 11/30/2021 Housing Stability Answer Date Recorded Housing 0 11/30/2021 Safety and Environment Answer Date Ministerio rded Safety 0 11/30/2021 Utilities Answer Date Recorded Utilities 0 11/30/2021 Employment Answer Date Recorded Stress 0 04/17/2024 Comments Unknown Sex and Gender Information Value Date Recorded Sex Assigned at Not on file Legal Sex Female 12:34 PM PDT Gender Identity Not on file Sexual Orientation Not on file Last Filed Vital Signs Vital Sign Reading Time Taken Comments Blood Pressure 109/76 11/30/2021 10:07 AM EDT Pulse 72 11/30/2021 10:07 AM EDT Temperature - - Respiratory Rate - - Oxygen Saturation - - Inhaled Oxygen Concentration - - Weight - - Height - - Body Mass Index - - Plan of Treatment Health Maintenance Due Date Last Done Comments Diabetes Screening 1977 HPV Screening 1977 Hepatitis C Screening 1977 Lipid Screening 1977 Pap + HPV 1977 Tobacco Screening 1977 HIV Screening 1992 Relationship Safety Screening/Counseling 1992 Annual Preventive Care Visit 12/28/1995 Imm-DTaP/Tdap/Td (1 - Tdap) 1996 Imm-Hepatitis B (1 of 3 - 19+ 3-dose series) 7 Cervical Cancer Screening 1998 Pap Smear 1998 Breast Cancer Screening (Mammogram) 2017 Hypertension Screening (#1) 11/30/2022 Dental BW 12/02/2022 11/30/2021 Dental Examination 12/02/2022 11/30/2021 Dental Perio Charting 12/02/2022 11/30/2021 Dental Prophy 12/02/2022 11/30/2021 CT Colonography 2022 Colonoscopy 2022 Colorectal Cancer Screening 2022 FIT/gFOBT 2022 Fecal DNA 2022 Flexible Sigmoidoscopy 2022 [id number] ( season) 2024 Imm-Influenza (#1) 2024 Alcohol and Drug Screen 08/05/2024 Depression Annual Screen 08/05/2024 Dental FMX/Pano 12/02/2026 11/30/2021 Cervical Ablation/Cold-Knife Conization Discontinued Cervical Cryotherapy Discontinued Colposcopy Discontinued Endometrial Biopsy Discontinued Excision/Leep Discontinued HPV Genotyping Discontinued Vaginal Pap Discontinued Vulvoscopy Discontinued Procedures Procedure Name Priority Date/Time Associated Diagnosis Comments Full INTRAORAL - COMP SERIES OF RADIOGRAPHIC IMAGES Routine 11/30/2021 10:00 AM EDT Caries Full PROPHYLAXIS - ADULT Routine 022 10:00 AM EDT Caries Full COMP ORAL EVALUATION - NEW/ESTABLISHED PATIENT Routine 11/30/2021 10:00 AM EDT Caries from Last 3 Months or Most Recently Relevant to Health Maintenance Insurance [place] MEDICAID DENTAL
--- OUTSIDE RECORDS SUMMARY | 2024-08-31 19:30 | XMS_ITS ---
Author Organization [facility] Address [address] [place] [phone] Care Team Providers Care Watch And Clock Repair Clerk Name Role Phone Dipti Mead Primary Care Provider Unavailab Colton Ross Unavailable [phone] Encounters Encounter Location Date Provider Diagnosis [facility] [address] [place] [id number] 08/20/2023 Colton Rock PLAN OF TREATMENT No Information
--- OUTSIDE RECORDS SUMMARY | 2024-08-31 19:30 | XMS_ITS | Encounter Summary ---
Author Organization [facility] Address [address] [place] [address] Care Team Providers Care Database Developer Name Role Phone Unavailable Primary Care Provider Unavailabl e Encounter Details Date Type Department Care Team (Late st Contact Info) Description 12/22/2021 Dental Interim Note [facility] [address] [place] [address] Shayla Otero, LOTUS [address] [place] [address] Social History Tobacco Use Types Packs/Day Years Used Date Smoking Tobacco: Former Cigarettes 2013 Alcohol Use Standard Drinks/Week Comments Not Currently 0 (1 standard drink = 0.6 oz pur e alcohol) Social Connections Answer Date Recorded Social Connections and Isolation 0 11/30/2021 Financial Resource Strain Answer Date R ecorded Financial Resource Strain 0 2021 Stress Answer Date Recorded Stress 0 11/30/2021 Physical Activity Answer Date Recorded Physical Activity 0 11/30/2021 Food Insecurity Answer Date Recorded Food 0 11/30/2021 Transportation Needs Answer Date Record ed Transportation 0 11/30/2021 Housing Stability Answer Date Recorded Housing 0 11/30/2021 Safety and Environment Answer Date Ministerio rded Safety 0 11/30/2021 Utilities Answer Date Recorded Utilities 0 11/30/2021 Employment Answer Date Recorded Employment 0 11/30/2021 Comments Unknown Sex and Gender Information Value Date Recorded Sex Assigned at Not on file Legal Sex Female 12:34 PM PDT Gender Identity Not on file Sexual Orientation Not on file COVID-19 Exposure Response Date Recorded In the last 10 days, have yo u been in contact with someone who was confirmed or suspected to have Coronavirus/COVID-19? No / Unsure 11/30/2021 9:28 AM EDT documented as of this encounter Plan of Treatment Not on file documented as of this encounter Visit Diagnoses Not on filedocumented in this encounter
--- OUTSIDE RECORDS SUMMARY | 2024-08-31 19:30 | XMS_ITS | Patient Health Record ---
Author Organization [facility] Address [address] [place] [phone] Care Team Providers Care Soldering Machine Tender Name Role Phone Dipti Mead Primary Care Provider UnavailColton Lawton Unavailable [phone] REASON FOR REFERRAL No Information SOCIAL HISTORY Sex Assigned At : Social History Observation Description Sex Assigned At Unknown PLAN OF TREATMENT No Information Insurance Providers Payer Name Payer Address Payer Phone Subscriber Number Group Number Insured Name Patient Relationship to Insured Coverage Start Date Coverage End Date [facility] [address] [address] [place], [place] [id number] EDUARDO BIGGS Self - patient is the insured
--- OUTSIDE RECORDS SUMMARY | 2024-08-31 19:30 | XMS_ITS ---
Author Organization [facility] Address [address] [place] [phone] Care Team Providers Care Orthotist/Prosthetist Name Role Phone Dipti Mead Primary Care Provider Unavailab Colton Ross Unavailable [phone] REASON FOR VISIT Patient presents today for jaundice Encounters Encounter Location Date Provider Diagnosis [facility] [address] [place] [phone] 08/20/2023 Colton Rock PLAN OF TREATMENT No Information
--- OUTSIDE RECORDS SUMMARY | 2024-08-31 19:31 | XMS_ITS | Encounter Summary ---
Author Organization [facility] Address [address] [place] [address] Care Team Providers Care Medical Delivery Technician Name Role Phone Unavailable Primary Care Provider Unavailabl e Encounter Details Date Type Department Care Team (Late st Contact Info) Description 12/22/2021 Dental Interim Note [facility] Dental [address] [place] [address] Shayla Otero, LOTUS [address] [place] [address] Social History Tobacco Use Types Packs/Day Years [...]
--- OUTSIDE RECORDS SUMMARY | 2024-08-31 19:31 | XMS_ITS | Encounter Summary ---
Author Organization [facility] Address [address] [place] [address] Care Team Providers Care Sales Apprentice Name Role Phone Unavailable Primary Care Provider Unavailabl e Encounter Details Date Type Department Care Team (Late st Contact Info) Description 01/31/2022 Dental Interim Note [facility] Dental [address] [place] [address] Shayla Otero DMD [address] [place] [address] Social History Tobacco Use Types Packs/Day Years [...] on file Sexual Orientation Not on file documented as of this encounter Plan of Treatment Not on file documented as of this encounter Visit Diagnoses Not on filedocumented in this encounter
--- OUTSIDE RECORDS SUMMARY | 2024-08-31 19:31 | XMS_ITS | Encounter Summary ---
Author Organization [facility] Address [address] [place] [address] Care Team Providers Care Airport Sales Agent Name Role Phone Unavailable Primary Care Provider Unavailabl e Encounter Details Date Type Department Care Team (Late st Contact Info) Description 01/25/2022 Dental Interim Note [facility] Dental [address] [place] [address] Shayla Otero DMD [address] [place] [address] Social History Tobacco Use Types Packs/Day Years [...]
--- OUTSIDE RECORDS SUMMARY | 2024-08-31 19:31 | XMS_ITS | Encounter Summary ---
Author Organization [facility] Address [address] [place] [address] Care Team Providers Care Telecommunications Sales Representative Name Role Phone Unavailable Primary Care Provider Unavailabl e Encounter Details Date Type Department Care Team (Late st Contact Info) Description 02/02/2022 Dental Interim Note [facility] Dental [address] [place] [address] Shayla Otero DMD [address] [place] [address] Social History Tobacco Use Types Packs/Day Years [...]
== END 2024-08-31 16:13 | disposition home or self-care (01) ==
PROVIDERS: PCP Internal Medicine; Visit Provider Internal Medicine
DX: M54.2 Cervicalgia (principal); K21.9 Gastro-esophageal reflux disease without esophagitis; K58.0 Irritable bowel syndrome with diarrhea; G43.909 Migraine, unspecified, not intractable, without status migrainosus; D72.819 Decreased white blood cell count, unspecified; R30.0 Dysuria

== ENCOUNTER → 2024-08-31 15:28 | Outpatient (BNVA) | payer OTHER, SELFPAY | PROVIDERS: PCP Internal Medicine; Visit Provider Internal Medicine | DX: K21.9 Gastro-esophageal reflux disease without esophagitis (principal); G43.909 Migraine, unspecified, not intractable, without status migrainosus; G47.00 Insomnia, unspecified; M54.2 Cervicalgia; K58.0 Irritable bowel syndrome with diarrhea; D72.819 Decreased white blood cell count, unspecified; E78.5 Hyperlipidemia, unspecified; R73.9 Hyperglycemia, unspecified; R30.0 Dysuria | CPT/HCPCS: 81003; 96127; 99212 ==

== ENCOUNTER 2025-03-01 14:37 | Outpatient (AMB) | payer OTHER, SELFPAY ==
--- NOTE | 2025-03-01 14:41 | MHC.PC.OV ---
Vital Signs 03/01/25 14:43 Height 5 ft 9 in Weight 188 lb BMI 27.8 BP 110/72 Blood Pressure Location Lt brachial Position Sitting Intake Visit Reasons: PE Intake Note: Patient here for a physical exam Control Clerk Repairs Required: No Accompanied by: Self / Same As Patient Allergies latex (LATEX) Allergy (Unknown, Verified 03/01/25 14:52) RASH lactose Adverse Reaction (Severe, Verified 03/01/25 14:52) Abdominal Pain amoxicillin (AMOXICILLIN) Adverse Reaction (Unknown, Verified 03/01/25 14:52) VOMITTING AND NAUSEA, abdominal pain, N/V and diarrhea Medication List - Last Reconciled 03/01/25 by Dipti Santacruz MD albuterol sulfate 90 mcg/actuation (ProAir HFA) 0 mcg inhalation Q4H PRN amitriptyline 10 mg PO BEDTIME 90 days cholecalciferol (vitamin D3) 25 mcg PO DAILY 90 days dexlansoprazole (Dexilant) 30 mg PO DAILY 90 days fluticasone propionate 50 mcg/actuation 1 spray intranasal DAILY 30 days loratadine (Allergy Relief (loratadine)) 10 mg PO DAILY 90 days sumatriptan succinate 25 mg PO Q2-4H PRN 30 days Ventolin HFA 90 mcg/actuation (albuterol sulfate) 2 puffs inhalation Q6H PRN 30 days NS Tobacco use date assessed: 08/31/24 Dental Screening Dental Screen Date: 08/31/24 HPI HPI Comments History of Present Illness Details The patient is a 49-year-old female presenting for a wellness visit and management of chronic conditions. She reports an adverse reaction to amoxicillin, experiencing nausea, vomiting, and diarrhea upon administration. The patient has a history of smoking but quit in 2003. During a colonoscopy conducted in June, redness was observed in the colon and stomach. The patient was advised that many individuals live with such findings without significant issues, and she was instructed to avoid irritant foods. The patient experiences postnasal drip with clear secretions, which was noted during the visit. [facility] Medical History (Updated 03/01/25 @ 15:03 by Dipti Santacruz MD) Right leg numbness Lumbar back pain with radiculopathy affecting right lower extremity Vaginal irritation H/O sigmoidoscopy Left foot pain Lumbar pain Breast mass Breast mass Chronic leukopenia Fatigue Migraines Allergic rhinitis Surgical History History of tonsillectomy and adenoidectomy History of esophagogastroduodenoscopy (EGD) History of shoulder surgery H/O LEEP History of appendectomy History of tubal ligation Family History Father Diabetes Hypertension Mother Osteoporosis Arthritis Glaucoma Maternal Uncle Stomach cancer Colon cancer H/O: lung cancer Maternal Grandmother Gallbladder cancer Maternal Aunt Liver cancer Paternal Grandmother Alzheimers disease Maternal Grandfather Heart attack Glaucoma Maternal Uncle Colon cancer Social History Housing: House Alcohol intake: current Alcohol intake frequency: holidays/special occasions only Alcohol type: wine Patient Tobacco Use Status: Former Tobacco user Tobacco use type: Cigarette e-Cigarette/Vaping Use: Never Used Second Hand Smoke Exposure: No service: No Current occupational status: employed Current occupational exposures/hazards: No Cognitive needs: No Hearing needs: No Vision needs: No Female Reproductive History Menstrual Age of Menarche: 15 Questionnaire Thrive Questionnaire Date Thrive assessed: 08/31/24 RIO-7 AMB Questionnaire RIO-7 Date RIO - 7 assessed: 08/31/24 Source: Developed by Drs. Colton Batista, Erika Levin, Александр Srinivasan and colleagues, with an educational alia from [employer]. Review of Systems Const All systems reviewed & are unremarkable except as noted in HPI and below Card Denies chest pain at rest, Denies chest pain with activity, Denies edema, Denies irregular heart rhythm, Denies claudication, Denies dyspnea, Denies dyspnea on exertion, Denies orthopnea, Denies paroxysmal nocturnal dyspnea and Denies slow heart rate Resp Denies cough, Denies dyspnea and Denies dyspnea on exertion GI Denies abdominal pain, Denies change in bowel habits, Denies excessive flatus, Denies nausea and Denies vomiting Denies urinary incontinence, Denies urinary hesitancy and Denies urinary urgency Musc Denies abnormal gait, Denies atrophy, Denies deformity and Denies limited range of motion Skin/Breast Denies bleeding lesions, Denies changing lesions and Denies rash Neuro Denies abnormal gait, Denies behavioral changes and Denies lack of coordination Psych Denies behavioral changes Physical exam (Primary Care) Vital Signs: Last Vital Signs BP 110/72 03/01/25 14:43 BMI result Body Mass Index 27.8 Tobacco/Smoking Status: Tobacco use Status Tobacco use date assessed 08/31/24 03/01/25 14:48 Patient Tobacco Use Status Former Tobacco user 03/01/25 14:48 Tobacco use type Cigarette 03/01/25 14:48 e-Cigarette/Vaping Use Never Used 03/01/25 14:48 Thrive Assessment: Date of Thrive Assessment Date Thrive assessed 08/31/24 03/01/25 14:48 HENOH Head: Yes normal to inspection, Yes normocephalic and Yes atraumatic Ears: external ears normal Eyes General: appearance normal, both eyes and all related structures Eyelids: Yes eyelids normal Conjunctivae: conjunctivae normal Neck Neck: Yes normal visual inspection and Yes supple Resp Effort & Inspection: normal respiratory effort Auscultation: clear to auscultation bilaterally Cardio Jugular venous distension: no JVD Rate: regular rate Rhythm: regular rhythm Heart sounds: S1 normal heart sound present and S2 normal heart sound present GI Inspection: Yes normal to inspection Palpation (GI): Soft to palpation and nontender Auscultation: normal bowel sounds Skin General skin exam: no rashes or lesions noted Neuro General: no focal motor deficits Extrem General: Yes full ROM Psych Appearance: grossly normal Coding Level of Care Code Est Pt Level 3 (37576) Est Pt Prev Care 40-64y(94557) Diagnoses Physical exam Z00.00 Blurry vision H53.8 Time Spent (min) 32 Assessment & Plan Assessment & Plan (1) Physical exam: Code(s): Z00.00 - Encounter for general adult medical examination without abnormal findings Category: Medical (2) Blurry vision: Code(s): H53.8 - Other visual disturbances Category: Medical Plan The patient will receive a tetanus vaccination next year as part of her preventative care measures. A mammography is scheduled for this year to ensure timely breast cancer screening. The patient should avoid amoxicillin due to adverse reactions including nausea, vomiting, and diarrhea. Dietary modifications are recommended to avoid irritant foods due to gastrointestinal findings of redness in the colon and stomach. Patient was informed and verbally consented to the use of an ambient scribe for clinic note documentation during this visit. Orders: Orders MM tomosynthesis screening BI Today Z12.31 - Encounter for screening mammogram for malignant neoplasm of breast Comprehensive [place]. Panel Fast Today Z00.00 - Encounter for general adult medical examination without abnormal findings Lipid Panel Today Z00.00 - Encounter for general adult medical examination without abnormal findings Referrals Ophthalmology Referral H53.8 - Other visual disturbances Medications: New azithromycin Take 2 tabs the 1st day then 1 tab the next 4 days 250 mg PO DAILY 6 tabs 0RF 5 days Refilled Ventolin HFA 90 mcg/actuation (albuterol sulfate) 2 puffs inhalation Q6H PRN 18 grams 1RF shortness of breath or wheezing 30 days NS
[2025-03-01 14:43] VITALS: BP 110/72; BMI 27.8
--- OUTSIDE RECORDS SUMMARY | 2025-03-01 15:12 | XMS_ITS | Clinical Summary ---
Author Organization [facility] Address [address] [place] [address] Care Team Providers Care Therapeutic Recreation Specialist Name Role Phone Unavailable Primary Care Provider [...] Mass Index - - Plan of Treatment Not on file Insurance [place]
== END 2025-03-01 15:03 | disposition home or self-care (01) ==
LOC: HO.HMCH 14:38
PROVIDERS: PCP Internal Medicine; Visit Provider Internal Medicine
DX: Z00.00 Encounter for general adult medical examination without abnormal findings (principal); H53.8 Other visual disturbances

== ENCOUNTER → 2025-03-01 14:37 | Outpatient (BNVA) | payer OTHER, SELFPAY | PROVIDERS: PCP Internal Medicine; Visit Provider Internal Medicine | DX: Z00.00 Encounter for general adult medical examination without abnormal findings (principal); H53.8 Other visual disturbances | CPT/HCPCS: 99212; 99396 ==

== ENCOUNTER 2025-04-13 15:22 | Outpatient (REF) | payer OTHER, SELFPAY ==
[2025-04-13 16:45] LABS: Appearance Urine Clear; Glucose Urine UA Negative (Negative); PH 5.5 (5.0-9.0); Specific Gravity - Urine <= 1.005 (1.005-1.025)
== END 2025-04-13 15:23 | disposition home or self-care (01) ==
LOC: HO.LAB 15:22
PROVIDERS: PCP Internal Medicine; Visit Provider Internal Medicine
DX: R30.0 Dysuria (principal)
CPT/HCPCS: 81003

== ENCOUNTER 2025-04-19 09:56 | Outpatient (AMB) | payer OTHER, SELFPAY ==
[2025-04-19 10:35] VITALS: BP 116/72; PULSE 68; TEMP 36.6; O2SAT 98; BMI 28.2
--- NOTE | 2025-04-19 10:35 | AM.OFFWIN_ITS ---
Intake Vital Signs 04/19/25 10:35 Height 5 ft 9 in Weight 191 lb BMI 28.2 BP 116/72 Blood Pressure Location Lt brachial Position Sitting Pulse 68 Pulse Source Pulse Oximeter Temp 97.9 F Temp Source Oral Pulse Oximetry (%) 98 Oxygen Delivery Method Room Air Intake Visit Reasons: ep lower back pain/ traveling up the neck to legs Intake Note: pt presents with low back pain radiating down left leg and into toes as well as up to right neck- decreased ROM RT > LT Patient Tobacco Use Status: Former Tobacco user Allergies latex (LATEX) Allergy (Unknown, Verified 04/19/25 10:40) RASH lactose Adverse Reaction (Severe, Verified 04/19/25 10:40) Abdominal Pain amoxicillin (AMOXICILLIN) Adverse Reaction (Unknown, Verified 04/19/25 10:40) VOMITTING AND NAUSEA, abdominal pain, N/V and diarrhea Do you need a note to return to daycare/school/sports/work: No HPI HPI Comments History of Present Illness Details 49 y/o Female patient who presents to [facility] walk [facility] clinic with c/o Neck pain that radiates up the back of Head since Yesterday. She does have chronic Neck pain an [facility] edid have PT back in 09/2024 with some relief. Pt also endorses lower sided lower back pain that radiates to the Left Lower leg since Saturday. Denies injuries or trauma. 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 [facility] Medical History Right leg numbness Lumbar back pain with radiculopathy affecting right lower extremity Vaginal irritation H/O sigmoidoscopy Left foot pain Lumbar pain Breast mass Breast mass Chronic leukopenia Fatigue Migraines Allergic rhinitis Surgical History History of tonsillectomy and adenoidectomy History of esophagogastroduodenoscopy (EGD) History of shoulder surgery H/O LEEP History of appendectomy History of tubal ligation Family History Father Diabetes Hypertension Mother Osteoporosis Arthritis Glaucoma Maternal Uncle Stomach cancer Colon cancer H/O: lung cancer Maternal Grandmother Gallbladder cancer Maternal Aunt Liver cancer Paternal Grandmother Alzheimers disease Maternal Grandfather Heart attack Glaucoma Maternal Uncle Colon cancer Social History Housing: House Alcohol intake: current Alcohol intake frequency: holidays/special occasions only Alcohol type: wine Patient Tobacco Use Status: Former Tobacco user Tobacco use type: Cigarette e-Cigarette/Vaping Use: Never Used Second Hand Smoke Exposure: No service: No Current occupational status: employed Current occupational exposures/hazards: No Cognitive needs: No Hearing needs: No Vision needs: No Female Reproductive History Menstrual Age of Menarche: 15 Review of Systems Const All systems reviewed & are unremarkable except as noted in HPI and below Physical Exam Vital Signs: Last Vital Signs Temp 97.9 F 04/19/25 10:35 Pulse 68 04/19/25 10:35 BP 116/72 04/19/25 10:35 Pulse Ox 98 04/19/25 10:35 Oxygen Delivery Method Room Air 04/19/25 10:35 BMI result Body Mass Index 28.2 Const General: no acute distress; No comfortable Nutritional Appearance: overweight Orientation/consciousness: patient oriented x3 Back/Spine/Pelvis Back: back tenderness Cervical Spine: cervical muscular tenderness, cervical spasm, Cervical spine tenderness and cervical ROM abnormal (Limited ROM due to pain) Thoracic/Lumbar Spine: pain with thoraco-lumbar ROM, thoraco-lumbar spasm and lumbar spinal tenderness Neuro General: patient oriented x3, gait normal and moves all extremities Psych Speech and movement: Normal speech and movement present Assessment & Plan Assessment & Plan (1) Neck pain: Code(s): M54.2 - Cervicalgia Plan: NSAIDs for pain relief. Ordered Flexeril and Lidocaine Patches Rest joints. Ordered PT (2) Lumbar pain: Code(s): M54.50 - Low back pain, unspecified Plan: NSAIDs for pain relief. Ordered Flexeril and Lidocaine Patches Rest joints. Ordered PT Orders: Orders PT Evaluation and Treatment Today M54.2 - Cervicalgia, M54.50 - Low back pain, unspecified Medications: New cyclobenzaprine 10 mg PO BEDTIME 14 tabs 0RF M54.2 - Cervicalgia, M54.50 - Low back pain, unspecified lidocaine 5% leave on most painful area for up to 12 hrs 1 patch topical DAILY 30 ea 0RF M54.2 - Cervicalgia, M54.50 - Low back pain, unspecified meloxicam 7.5 mg PO DAILY 20 tabs 0RF M54.2 - Cervicalgia, M54.50 - Low back pain, unspecified Coding Level of Care Code Est Pt Level 4 (70949) Diagnoses Neck pain M54.2 Lumbar pain M54.50 Time Spent (min) 20
--- OUTSIDE RECORDS SUMMARY | 2025-04-19 12:19 | XMS_ITS | Clinical Summary ---
Author Organization [facility] Address [address] [place] [address] Care Team Providers Care Finisher Brush Name Role Phone Unavailable Primary Care Provider [...] Plan of Treatment Not on file Insurance [place] D[place]
--- OUTSIDE RECORDS SUMMARY | 2025-04-19 12:19 | XMS_ITS | Encounter Summary ---
Author Organization [facility] Address [address] [place] [address] Care Team Providers Care Burner Technician Name Role Phone Unavailable Primary Care Provider Unavailabl e Encounter Details Date Type Department Care Team (Late st Contact Info) Description 02/02/2022 Dental Interim Note [facility] Dental [address] [place] [address] Shayla Otero DMD [address] [place] [address] Social History Tobacco Use Types Packs/Day Years [...]
--- OUTSIDE RECORDS SUMMARY | 2025-04-19 12:19 | XMS_ITS | Encounter Summary ---
Author Organization [facility] Address [address] [place] [address] Care Team Providers Care Triage Specialist Name Role Phone Unavailable Primary Care Provider Unavailabl e Encounter Details Date Type Department Care Team (Late st Contact Info) Description 01/31/2022 Dental Interim Note [facility] Dental [address] [place] [address] Shayla Otero DMD [address] [place] [address] Social History Tobacco Use Types Packs/Day Years [...]
--- OUTSIDE RECORDS SUMMARY | 2025-04-19 12:19 | XMS_ITS | Encounter Summary ---
Author Organization [facility] Address [address] [place] [address] Care Team Providers Care Debt Counselor Name Role Phone Unavailable Primary Care Provider Unavailabl e Encounter Details Date Type Department Care Team (Late st Contact Info) Description 01/25/2022 Dental Interim Note [facility] [address] [place] [address] Shayla Otero DMD [address] [place] [address] Social History Tobacco Use Types Packs/Day Years [...]
--- OUTSIDE RECORDS SUMMARY | 2025-04-19 12:19 | XMS_ITS | Encounter Summary ---
Author Organization [facility] Address [address] [place] [address] Care Team Providers Care Spray Pilot Name Role Phone Unavailable Primary Care Provider Unavailabl e Encounter Details Date Type Department Care Team (Late st Contact Info) Description 12/22/2021 Dental Interim Note [facility] [address] [place] [address] Shayla Otero, [address] [place] [address] Social History Tobacco Use Types Packs/Day Years [...]
--- OUTSIDE RECORDS SUMMARY | 2025-04-19 12:19 | XMS_ITS | Encounter Summary ---
Author Organization [facility] Address [address] [place] [address] Care Team Providers Care Reclamation Supervisor Name Role Phone Unavailable Primary Care Provider Unavailabl e Encounter Details Date Type Department Care Team (Late st Contact Info) Description 12/22/2021 Dental Interim Note [facility] [address] [place] [address] Shayla Otero, [address] [place] [address] Social History Tobacco Use Types Packs/Day Years [...]
== END 2025-04-19 11:33 | disposition home or self-care (01) ==
PROVIDERS: PCP Internal Medicine; Visit Provider Nurse Practitioner Family
DX: M54.2 Cervicalgia (principal); M54.50 Low back pain, unspecified

== ENCOUNTER → 2025-04-19 09:56 | Outpatient (BNVA) | payer OTHER, SELFPAY | PROVIDERS: PCP Internal Medicine; Visit Provider Nurse Practitioner Family | DX: M54.2 Cervicalgia (principal); M54.50 Low back pain, unspecified | CPT/HCPCS: 99212 ==

== ENCOUNTER → 2025-07-24 07:45 | Outpatient (BNV) | payer OTHER, SELFPAY | PROVIDERS: PCP Internal Medicine; Visit Provider Radiology Body Imaging | DX: N63.12 Unspecified lump in the right breast, upper inner quadrant (principal); N63.22 Unspecified lump in the left breast, upper inner quadrant | CPT/HCPCS: 77062; 77066 ==

== ENCOUNTER 2025-07-24 07:55 | Outpatient (REF) | payer OTHER, SELFPAY ==
--- NOTE | ~2025-07-24 | MM_ITS ---
EXAMINATION(S): 1. MM DIAGNOSTIC DIGITAL BREAST TOMOSYNTHESIS, BILATERAL 2. TARGETED ULTRASOUND OF THE BILATERAL BREASTS CLINICAL INFORMATION: Bilateral lumps. Right 2:00 and left 10:00 COMPARISON: Comparison made to multiple prior, most recent October 29, 2023, and most remote July 08, 2015. TECHNIQUE: Digital breast tomosynthesis is performed in both the mediolateral oblique and craniocaudal views along with computer-aided detection (CAD). Synthesized 2D images are generated from the tomosynthesis. Skin BB markers were placed at the location of the palpable concern in the medial aspect of the both breasts, as indicated by the patient. FINDINGS: BREAST COMPOSITION: The breasts are heterogeneously dense, which may obscure small masses. RIGHT BREAST: No significant masses, suspicious calcifications or other abnormalities are seen. In particular, no suspicious findings in the vicinity of the skin BB marker placed in the upper inner quadrant posterior depth. LEFT BREAST: No significant masses, suspicious calcifications or other abnormalities are seen. In particular, no suspicious findings in the vicinity of the skin BB marker placed in the upper inner quadrant posterior depth. Please note the location of the BB marker appears to be similar to the one placed for evaluation in October 05, 2023. MM/MM tomosynthesis diagnostic BI IMPRESSION: RIGHT BREAST: No definite mammographic finding at the location of the skin BB marker. However, limited ultrasound evaluation is recommended. LEFT BREAST: No definite mammographic finding at the location of the skin BB marker. However, limited ultrasound evaluation is recommended. The mammogram study was performed on Saturday, when it was scheduled as a screening. Patient was scheduled for bilateral ultrasound studies on July 27, 2025, however, the patient called canceling the exam. ASSESSMENT: BI-RADS: Category 0: Incomplete - Need additional Imaging Evaluation RECOMMENDATION: Additional Imaging required Electronically signed by: Christy Pérez MD 07/27/2025 10:20 AM [facility]
== END 2025-07-24 07:56 | disposition home or self-care (01) ==
LOC: HO.MAMMO 07:55
PROVIDERS: PCP Internal Medicine; Visit Provider Internal Medicine
DX: Z12.31 Encounter for screening mammogram for malignant neoplasm of breast (principal)
CPT/HCPCS: 77062; 77063; 77066; 77067